=== PATIENT | male | born 1950 ===

== ENCOUNTER 2017-07-14 06:10 | Inpatient (IN) | payer MEDICARE ==
[2017-07-07 16:29] VITALS: BMI 29.3
[2017-07-14] MEDS ORDERED: ceFAZolin IV 1 gm in Dextrose 2 GM/100 ML BAG IVPB ONE (07:41)
[2017-07-14] MEDS ORDERED: Absorbable Gelatin Sponge Size 100 ONE (07:41)
[2017-07-14] MEDS ORDERED: Thrombin Topical 5,000 IU Spray Kit ONE (07:41)
[2017-07-14] MEDS ORDERED: Bacitracin Ointment 30 GM TUBE ONE (07:41)
[2017-07-14] MEDS ORDERED: Sodium Chloride 0.9% 20 ML IV ONE (07:55)
[2017-07-14] MEDS ORDERED: ePHEDrine 50 mg/ml Inj ONE (08:17)
[2017-07-14] MEDS ORDERED: Etomidate 20 mg/10ml Inj IV ONE (08:18)
[2017-07-14] MEDS ORDERED: Succinylcholine 200 mg/10 ml Inj IV ONE (08:18)
[2017-07-14] MEDS ORDERED: Rocuronium 10 mg/ml (5 ml) ONE ×2 (08:18→10:21)
[2017-07-14] MEDS ORDERED: Lactated Ringer's 1,000 ML IV ONE ×2 (08:55→10:15)
[2017-07-14] MEDS ORDERED: Midazolam 2 MG/2 ML VIAL ONE (08:57)
[2017-07-14] MEDS ORDERED: Desflurane Inhalation Anesthetic Liq (240 ml) ONE (09:04)
[2017-07-14] MEDS ORDERED: Vancomycin 1 g Inj ONE (10:20)
[2017-07-14 10:23] LABS: FLUID TYPE SYNOVIAL FLUID
[2017-07-14] MEDS: Bupivacaine HCl 0.5% PF (30 ml) Inj ONE ×2 (10:40→11:20)
[2017-07-14] MEDS: EPINEPHrine 1 mg/ml (1:1000) Inj ONE ×2 (10:42→11:20)
[2017-07-14] MEDS ORDERED: Neostigmine Methylsulfate 2 MG/2 ML ML IV ONE (10:42)
[2017-07-14] MEDS ORDERED: Neostigmine Methylsulfate 3mg/3ml Syringe IV ONE (10:42)
[2017-07-14] MEDS: Morphine 1 mg/ml preservative-free Inj(Duramorph) ONE ×2 (10:44→11:20)
[2017-07-14] MEDS ORDERED: Sodium Chloride 0.9% Inj (10mL) IV ONE ×2 (10:45→11:20)
[2017-07-14] MEDS ORDERED: Vancomycin 1 g Inj IVPB ONE (11:15)
[2017-07-14] MEDS: HYDROmorphone 0.5 mg/0.5 ml ISec IVP PRN ×2 (13:00→13:30)
--- NOTE | 2017-07-14 13:22 | PCM.SURG1 ---
Surgeon's Initial Post Op Note - Surgeon's Notes Surgeon: Dao Phoenix MD Gravity Prospector: Burton Estes PA-C Type of Anesthesia: General Endo Pre-Operative Diagnosis: Right knee sever OA Operative Findings: see op report Post-Operative Diagnosis: same as pre-op dx Operation Performed: R TKR Specimen/Specimens Removed: Right knee bone and soft tissue Estimated Blood Loss: EBL {In ML}: 250 Date of Surgery/Procedure: 07/14/17 Time of Surgery/Procedure: 09:45
[2017-07-14] MEDS ORDERED: Labetalol 5mg/ml (4ml) IVP ONE (13:30)
[2017-07-14] MEDS ORDERED: Oxycodone/Acetaminophen 5/325 mg Tab PO PRN (13:32)
--- NOTE | 2017-07-14 13:48 | RAD ---
PROCEDURE: Right Knee Radiographs. HISTORY: postop right tkr COMPARISON: None. FINDINGS: BONES: Expected postoperative findings with respect to femoral and tibial components of the TKA. JOINTS: Expected postoperative findings JOINT EFFUSION: None. OTHER FINDINGS: None. IMPRESSION: Satisfactory postoperative status.
--- NOTE | 2017-07-14 13:50 | CP.PCM.HP ---
<ConnerCassievincent - Last Filed: 07/14/17 16:32> History of Present Illness - History of Present Illness History of Present Illness: POD #0 66 year old male with PMH of HTN,HLD, OA of knee s/p total right knee replacement. Patient is somnolent but arousable, was given pain medication just prior to interviewing patient in PACU. Patients chart reviewed. He has HTN managed with coreg, and HLD managed with atorvastatin. He had cardiac cath 06/2017: mild perfusion defect. was cleared for procedure. PMH: HTN, HLD, OA of knee Surgeon: Dr. Phoenix MEdications: reviewed Allergies: Reviewed. Present on Admission - Present on Admission Any Indicators Present on Admission: No Past Patient History - Past Medical History & Family History Past Medical History?: Yes - Past Social History Smoking Status: Never Smoked - CARDIAC Hx Cardiac Disorders: Yes Hx Hypercholesterolemia: Yes Hx Hypertension: Yes - PULMONARY Hx Respiratory Disorders: No - NEUROLOGICAL Hx Neurological Disorder: No - HEENT Hx HEENT Problems: No - RENAL Hx Chronic Kidney Disease: No - ENDOCRINE/METABOLIC Hx Endocrine Disorders: No - HEMATOLOGICAL/ONCOLOGICAL Hx Blood Disorders: No Hx Blood Transfusions: No - INTEGUMENTARY Hx Dermatological Problems: No - MUSCULOSKELETAL/RHEUMATOLOGICAL Hx Musculoskeletal Disorders: Yes Hx Arthritis: Yes - GASTROINTESTINAL Hx Gastrointestinal Disorders: No - GENITOURINARY/GYNECOLOGICAL Hx Genitourinary Disorders: No - PSYCHIATRIC Hx Psychophysiologic Disorder: Yes Hx Depression: Yes - SURGICAL HISTORY Hx Surgeries: Yes Other/Comment: HERNIA SURGERY - ANESTHESIA Hx Anesthesia: Yes Hx Anesthesia Reactions: No Hx Malignant Hyperthermia: No Has any member of the family had a problem w/ anesthesia?: No Meds Allergies/Adverse Reactions: Allergies Allergy/AdvReac Type Severity Reaction Status Date / Time No Known Allergies Allergy Verified 07/07/17 16:29 Physical Exam - Constitutional Appears: No Acute Distress - Head Exam Head Exam: ATRAUMATIC, NORMAL INSPECTION, NORMOCEPHALIC - Eye Exam Eye Exam: EOMI, Normal appearance, PERRL - Respiratory Exam Respiratory Exam: Clear to Auscultation Bilateral, NORMAL BREATHING PATTERN - Cardiovascular Exam Cardiovascular Exam: Tachycardia (109), REGULAR RHYTHM, +S1, +S2 - GI/Abdominal Exam GI & Abdominal Exam: Normal Bowel Sounds, Soft. absent: Tenderness - Psychiatric Exam Psychiatric exam: Normal Affect, Normal Mood - Skin Skin Exam: Dry, Intact, Normal Color, Warm Results - Vital Signs Recent Vital Signs: Last Vital Signs Temp 97.9 F 07/14/17 13:15 Pulse 83 07/14/17 13:30 Resp 20 07/14/17 13:30 BP 158/96 H 07/14/17 13:30 Pulse Ox 95 07/14/17 13:30 - Labs Labs: Laboratory Results - last 24 hr 07/14/17 07/14/17 07/14/17 06:25 08:00 10:21 Fluid Type Synovial fluid Synovial WBC 15.0 Synovial RBC 5544.0 H Synovial Neutrophils 5.0 H Synovial Lymphocytes 18.0 H Synov Monos/Macrophage 7 H Synovial Fluid Comment Light red, bloody Blood Type O POSITIVE Blood Type Confirm O POSITIVE Antibody Screen Negative BBK History Checked No verified bt Assessment & Plan - Assessment and Plan (Free Text) Assessment: 66 year old male s/p total knee replacement #TKR #HTN #HLD #DVT ppx -pain control as ordered -resume home medications for htn/hld -start lovenox 07/15 -follow up labs in AM <Nathainel Sanford - Last Filed: 07/15/17 17:04> Results - Vital Signs Recent Vital Signs: Last Vital Signs Temp 99.5 F 07/15/17 16:00 Pulse 98 H 07/15/17 16:00 Resp 24 07/15/17 16:00 BP 109/57 L 07/15/17 16:00 Pulse Ox 99 07/15/17 16:00 - Labs Result Diagrams: 07/15/17 05:40 07/15/17 05:40 Labs: Laboratory Results - last 24 hr 07/15/17 07/15/17 07/15/17 05:40 05:40 08:57 WBC 12.5 H RBC 4.08 L Hgb 11.9 L Hct 35.9 MCV 87.9 MCH 29.2 MCHC 33.2 RDW 13.4 Plt Count 141 MPV 8.9 Neut % (Auto) 72.1 Lymph % (Auto) 11.8 L Rice % (Auto) 13.5 H Eos % (Auto) 2.2 Baso % (Auto) 0.4 Neut # 9.0 H Lymph # 1.5 Rice # 1.7 H Eos # 0.3 Baso # 0.1 D-Dimer, Quantitative pCO2 pO2 HCO3 ABG pH ABG Total CO2 ABG O2 Saturation ABG O2 Content ABG Base Excess ABG Hemoglobin ABG Carboxyhemoglobin POC ABG HHb (Measured) ABG Methemoglobin ABG O2 Capacity Hola Test A-a O2 Difference Hgb O2 Saturation FiO2 Sodium 141 Potassium 4.8 Chloride 110 H Carbon Dioxide 19 L Anion Gap 17 BUN 31 H Creatinine 2.0 H Est GFR ( Amer) 41 Est GFR (Non-Af Amer) 34 POC Glucose (mg/dL) 144 H Random Glucose 124 H Calcium 8.4 Troponin I NT-Pro-B Natriuret Pep Urine Color Urine Clarity Urine pH Ur Specific Barry Urine Protein Urine Glucose (UA) Urine Ketones Urine Blood Urine Nitrate Urine Bilirubin Urine Urobilinogen Ur Leukocyte Esterase Urine RBC (Auto) Urine Microscopic WBC Ur Squamous Epith Cells Amorphous Sediment Urine Bacteria Granular Casts (Auto) 07/15/17 07/15/17 07/15/17 09:22 10:25 11:25 WBC RBC Hgb Hct MCV MCH MCHC RDW Plt Count MPV Neut % (Auto) Lymph % (Auto) Rice % (Auto) Eos % (Auto) Baso % (Auto) Neut # Lymph # Rice # Eos # Baso # D-Dimer, Quantitative < 150 pCO2 37 pO2 49 L HCO3 20.1 L ABG pH 7.33 L ABG Total CO2 20.6 L ABG O2 Saturation 89.2 L ABG O2 Content 13.4 L ABG Base Excess -5.9 L ABG Hemoglobin 11.1 L ABG Carboxyhemoglobin 2.5 H POC ABG HHb (Measured) 10.4 H ABG Methemoglobin 1.2 ABG O2 Capacity 15.0 L Hola Test Yes A-a O2 Difference 104.0 Hgb O2 Saturation 85.9 L FiO2 28.0 Sodium Potassium Chloride Carbon Dioxide Anion Gap BUN Creatinine Est GFR ( Amer) Est GFR (Non-Af Amer) POC Glucose (mg/dL) Random Glucose Calcium Troponin I 0.1500 H* NT-Pro-B Natriuret Pep 5590 H Urine Color Urine Clarity Urine pH Ur Specific Barry Urine Protein Urine Glucose (UA) Urine Ketones Urine Blood Urine Nitrate Urine Bilirubin Urine Urobilinogen Ur Leukocyte Esterase Urine RBC (Auto) Urine Microscopic WBC Ur Squamous Epith Cells Amorphous Sediment Urine Bacteria Granular Casts (Auto) 07/15/17 16:06 WBC RBC Hgb Hct MCV MCH MCHC RDW Plt Count MPV Neut % (Auto) Lymph % (Auto) Rice % (Auto) Eos % (Auto) Baso % (Auto) Neut # Lymph # Rice # Eos # Baso # D-Dimer, Quantitative pCO2 pO2 HCO3 ABG pH ABG Total CO2 ABG O2 Saturation ABG O2 Content ABG Base Excess ABG Hemoglobin ABG Carboxyhemoglobin POC ABG HHb (Measured) ABG Methemoglobin ABG O2 Capacity Hola Test A-a O2 Difference Hgb O2 Saturation FiO2 Sodium Potassium Chloride Carbon Dioxide Anion Gap BUN Creatinine Est GFR ( Amer) Est GFR (Non-Af Amer) POC Glucose (mg/dL) Random Glucose Calcium Troponin I NT-Pro-B Natriuret Pep Urine Color Ladi Urine Clarity Cloudy Urine pH 5.0 Ur Specific Barry 1.026 Urine Protein 30 Urine Glucose (UA) Neg Urine Ketones 20 Urine Blood Negative Urine Nitrate Negative Urine Bilirubin Negative Urine Urobilinogen 0.2-1.0 Ur Leukocyte Esterase Neg Urine RBC (Auto) 3 Urine Microscopic WBC 2 Ur Squamous Epith Cells < 1 Amorphous Sediment Few H Urine Bacteria Rare Granular Casts (Auto) 1 Assessment & Plan - Assessment and Plan (Free Text) Plan: I was present during evaluation and discussed with Dr. Rubio re:plans of care and treatment.
[2017-07-14] MEDS ORDERED: Labetalol 5mg/ml (4ml) IV ONE (14:45)
--- NOTE | 2017-07-14 15:10 | CARD ---
APPROVED REPORT EKG Measurement Heart [id number] <Conclusion> Normal sinus rhythm Minimal voltage criteria for LVH, may be normal variant Nonspecific T wave abnormality Abnormal ECG
[2017-07-14] MEDS ORDERED: ceFAZolin IV 1 gm in Dextrose 1 GM/50 ML BAG IVPB ONE ×2 (16:45→23:45)
[2017-07-14] MEDS ORDERED: oxyCODONE 20 mg ER Tab (oxyCONTIN) PO SCH (21:00)
--- NOTE | 2017-07-14 21:18 | OP ---
PROCEDURE DATE: 07/14/2017 PREOPERATIVE DIAGNOSIS: Right knee osteoarthritis. POSTOPERATIVE DIAGNOSIS: Right knee osteoarthritis. PROCEDURE: Right total knee replacement. ATTENDING SURGEON: Dao Phoenix MD. SCENARIO WRITER: Burton Estes PA-C IMPLANTS SIZE: Tibia size 3 tibia, size 3 femur, 9 mm polyethylene insert, 32 mm patella button. ANESTHESIA TYPE: General. ESTIMATED BLOOD LOSS: 50 mL. COMPLICATIONS: None. HISTORY: The patient with prolonged history of right knee pain progressively getting worse despite extensive conservative management, which included activity modification, injections, anti-inflammatory modification and physical therapy. X-rays had revealed advanced arthritis. Patient was indicated for total knee replacement due to continued pain and limited mobility. I had a detailed discussion with the patient in the office explaining the nature of the surgery, alternatives of surgery, risks and benefits, rehabilitation protocol and surgical markings. Risks of surgery include but not limited to continued pain, lack of motion, infection, vascular injury, DVT / PE, nerve injury including peroneal nerve dysfunction, reflex sympathetic dystrophy, compartment syndrome, unforeseen medical and/or anesthesia complications, limb loss, and even . The patient expressed an understanding of the risks and possible benefits of the procedure, and is also aware of the alternatives to surgery. DESCRIPTION OF PROCEDURE: On the day of the surgery, the patient was admitted to pre-operative holding area. A laterality sheet was completed confirming the correct operative site. The correct surgical knee was marked in the holding area and informed consent was signed from the patient. Once again, I reviewed the risks and benefits of the surgery with the patient in detail. These risks include but are not limited to continued pain, lack of motion, infection, vascular injury, DVT / PE, nerve injury including peroneal nerve dysfunction, reflex sympathetic dystrophy, symptomatic hardware, need for further procedure and surgeries, instability, iatrogenic fractures, compartment syndrome, unforeseen medical and/or anesthesia complications, limb loss, and even . The patient expressed an understanding of the risks and possible benefits of the procedure, also aware of the alternatives to surgery and signed the informed consent. The patient was transported to the operating room and placed in the supine position, general anesthesia was obtained. Exam under anesthesia revealed no effusion, range of motion was 0-125, stable to varus and valgus stress. A padded tourniquet was applied to patient's operative thigh and appropriate prophylactic antibiotics were given. The operative leg was draped and prepped in standard sterile manner. Timeout was completed, confirming patient's right knee to be the correct operative site. Using an Esmarch, the extremity was exsanguinated and tourniquet was inflated to 350 mmHg. The surgical incision markings were made using patella border, tibial tubercle, patella and quadriceps tendon. Using a 10 blade, a midline incision was made. Skin dissection was taken until the prepatellar fascia was identified and the corners of the patellar tendon were marked for proper closure at the end of the procedure. Using a fresh 10 blade, a medial parapatellar arthrotomy was performed. The knee was exposed in the standard manner. The deep MCL was elevated for exposure, medial and lateral menisci were removed, ACL and PCL were also transected. The tibia was subluxed anteriorly. Planned tibial cut was made with power saw, using extra-medullary guide, perpendicular to mechanical axis of the tibia. After the cut was made, the alignment was also checked and was found to be appropriate. Tibial cut surface was measured with trial base plate and it was noted that size 3 tibial baseplate was provide sufficient coverage without overhang. Tibial component was externally rotated and marked. Next, the knee was placed into 90 degrees of flexion. A drill hole was made within the femoral notch anterior to PCL insertion for placement of intramedullary femoral tonny. Intramedullary femoral tonny was inserted within the femoral canal and planned distal femoral cut was made. After the cut, knee was brought into full extension. Spacer blocks were used to check the extension balancing both in full extension and 30 degrees of flexion. It was found that 9 mm trial spacer block allowed full extension with symmetric varus and valgus balancing. Next we proceed with Patella resurfacing. [place] patella width was found to 27 mm. Using the free-hand technique the arthritic patella surface was resected. Patella was sized using the guide and it was noted that 32 mm. Patella dome button would be appropriate for the patient. Next the size of femoral component was determined using the posterior referencing guide. It was noted that a size 3 femur would be appropriate for this patient without causing any significant notching. A 4 x 1 cutting block was placed and flexion gap balancing was checked. The flexion gap was found to be symmetric to the extension gap. Anterior and posterior condyle, anterior and posterior chamfer cuts were made. Next, appropriate size box cut for femoral component was prepared using the guide. The femoral trial component was impacted onto the distal femur. Appropriate size tibial trial component was also placed on the cut surface of the tibia. Using the drill and punch, keel for tibial implant was prepared. Trial tibial tray was secured onto the tibia using pins. Different size trial polyethylene inserts were secured on to the trial tibial tray to critically assess the following parameters: Full range of motion, extension and flexion gap balancing, mid-flexion stability, anterior and posterior drawer, and patellar tracking. All parameter were found to be satisfactory with 9 mm insert. All the trial components were removed. Implants were opened on the back table. Cement was mixed and we proceed with cement fixation of the implants. Tibial tray, femoral component and patellar dome button were secured with cement. Polyethylene insert was secured onto the tibial tray using locking mechanism. The knee was reduced and brought into full extension. Cement was allowed to harden until final component fixation. Knee was taken through the final range of motion for stability testing, and found to be satisfactory. 60 mL of custom cocktail mixture was injected into posterior capsule, MCL, LCL, quadriceps tendon, and patellar tendon. Wound was copiously irrigated with sterile antibiotic solution using pulse lavage. Arthrotomy was closed using heavy suture and wound was closed in standard manner. Patient was extubated, transferred to stretcher and taken to the recovery room. Post-operative instructions were provided, physical therapy consult was requested along with DVT prophylaxis and appropriate pain medications. During this procedure, I was assisted by Burton Estes PA-C, who assisted in positioning the patient on the operating room table as well as transferring the patient from the operating room table to the recovery room stretcher. In addition, Burton Estes PA-C assisted me during the actual operative procedure by positioning, protecting critical neurovascular structures, exposure of the joint, and proper positioning of the implants. The presence of Burton Estes PA-C as my operative administrative assistant receptionist was medically necessary to ensure the utmost safety of the patient in the pre, intra-, and post-operative periods. Due to the patient's previous procedure performed in this area, this procedure was more difficult than a standard knee arthroscopy. This required extra time during prepping and draping, as well as an extended operative time. Because of the added complexity of the revision nature of this procedure, the length of the case was prolonged by 50 minutes. Previous surgery was quadriceps tendon repair. Dao Phoenix MD FISH
[2017-07-15] MEDS ORDERED: Chlorhexidine Gluconate 1 APPL/PKT TP ONE ×3 (02:43→21:22)
[2017-07-15 06:32] LABS: BASO # 0.1 K/uL (0.0-0.2); BASO % 0.4 % (0.0-2.0); EOS # 0.3 K/uL (0.0-0.7); EOS % 2.2 % (0.0-4.0); HEMATOCRIT 35.9 % (35.0-51.0); LYMPH # 1.5 K/uL (1.0-4.3); LYMPH % 11.8 % (20.0-40.0); MEAN CELL VOLUME 87.9 fl (80.0-94.0); MEAN CORPUSCULAR HEMOGLOBIN 29.2 pg (27.0-31.0); MEAN CORPUSCULAR HGB CONC 33.2 g/dL (33.0-37.0); MEAN PLATELET VOLUME 8.9 fl (7.2-11.7); MONO # 1.7 K/uL (0.0-0.8); MONO % 13.5 % (0.0-10.0); NEUT % 72.1 % (50.0-75.0); NRBC % 0.1 % (0.0-0.0); RED CELL DISTRIBUTION WIDTH 13.4 % (11.5-14.5); WHITE BLOOD COUNT 12.5 K/uL (4.8-10.8)
[2017-07-15 06:46] LABS: CALCIUM 8.4 mg/dL (8.4-10.2); POTASSIUM 4.8 MMOL/L (3.6-5.0)
[2017-07-15] MEDS ORDERED: Lactated Ringer's 1,000 ML IV SCH (08:30)
--- NOTE | 2017-07-15 09:15 | PCM.RRT ---
I.Reason for DIRECTOR EXPORT - A) Acute Change in Patient: (Select all that apply): Acute change in SBP below (90) - Neurological Status (Select all that apply): Verbal, Confused, Lethargic - Respiratory Oxygen Delivery Method: Nasal Cannula @L/min (2) - Constitutional Appears: Confused - Head Head Exam: NORMAL INSPECTION, NORMOCEPHALIC - Eyes Eye Exam: Normal appearance, PERRL - Respiratory Exam Respiratory Exam: Clear to Ausculation Bilateral, NORMAL BREATHING PATTERN - Cardiovascular Exam Cardiovascular Exam: REGULAR RHYTHM, +S1, +S2 - GI/Abdominal Exam GI & Abdominal Exam: Soft. absent: Distended, Tenderness - Neurological Exam Additional exam: somnolent but arousable - Extremities Exam Extremities Exam: absent: Pedal Edema Additional comments: yordy wrap on right leg Plan - Assessment of Findings&Treatment Plan DIRECTOR EXPORT called for hypotension and AMS 66 year old male s/p total knee replacement, patient with decreased urine output postoperatively, LIYAH, urinary retention, called by nurse for drop in systolic BP. Bolus was ordered prior to DIRECTOR EXPORT, patient received 300cc, patients BP was checked and found to be 80s/50s Patient lying in bed, appears more lethargic, responding to questions, opens eye to verbal stimuli and to touch. Denies dizziness, chest pain , shortness of breath, nausea or abdominal pain. VS: BP 80s/50s, HR 90s, O2 sat dropped to high 80s on room air Gen: lethargic, responds to questions lungs: clear to auscultations bilaterally cardio: distant heart sounds abdomen: distended, tympanic to percussion ext: no pedal edema/tenderness A/P: 66 year old male s/p R TKR with acute decompensation. Became hypoxic, hypotensive and tachycardic, possibly 2' to PE/AK. Patient to be transferred to ICU. Nasal cannula placed with some improvement of O2 sat. STAT ABG ordered. STAT 1L Bolus of NS. Case was d/w intensvist
[2017-07-15 09:25] LABS: ABG ALLEN TEST YES; ARTERIAL BLOOD GAS HCO3 20.1 mmol/L (21-28); ARTERIAL BLOOD GAS O2 CONTENT 13.4 ML/dL (15-23); ARTERIAL BLOOD GAS PH 7.33 (7.35-7.45); ARTERIAL BLOOD GAS PO2 49 mm/Hg (80-100); ARTERIAL BLOOD HGB O2 SAT 85.9 % (95.0-98.0); CARBOXYHEMOGLOBIN 2.5 % (0.5-1.5); HHB 10.4 % (0.0-5.0); METHEMOGLOBIN 1.2 % (0.0-3.0)
[2017-07-15] MEDS: Dextrose 5%/Lactated Ringer's 1,000 ML IV SCH ×2 (10:10→18:10)
[2017-07-15 11:19] LABS: TROPONIN I 0.15 ng/mL (0.00-0.120)
--- NOTE | 2017-07-15 11:30 | CP.CCUPN ---
CCU Subjective - Physician Review Subjective (Free Text): Transfer to ICU post DESIGN CONSULTANT eval: 66M with PMH: HTN, hyperlipidemia, underwent R TKR via GA yesterday as per operative report: DESIGN CONSULTANT called this AM for hypotension, BP unresponsive to fluid challenge and transferred to ICU for further mgmt. Presently lethargic, but arousable and follows simple commands, does not appear distressed, but grimaces upon abdominal exam. Abdomen markedly protuberant and distended, grimaces on deep palpation. After 1 liter fluid challenge, HR 95. BP 104/57, SPO2 90% on 2 LPM NC. Reportedly had urinary retention overnight and difficulty encountered with Vargas placement. No other meds given within the past 12 hours including any further antihypertensives or pain meds. Allergies: NKDA Home Meds: Lipitor, Coreg, Zestril. Other vitals and I/O's reviewed. Fever spike to 100.1F noted overnight. ROS: Unobtainable from lethargic Patient. No other pertinent negs or positives on 10+ system review. PMSFH: All Nursing and physician documentation reviewed to date; no new pertinent info noted relevant to current medical problems. CXR / AXR: hypoexpanded, but clear lung escobar. Distended stomach, non-specific bowel gas pattern. (my interp). EKG: repeat done today as compared to yesterdays study shows no new changes. MAJOR PROBLEMS: 1. Hypotension; r/o occult AMI, PTE, Hypovolemia, medication effect. 2. Acute Resp Insufficiency 2 Gastric Distention, r/o PTE 3. Gastric Distension 4. Urinary Retention 5. Azotemia, r/o LIYAH vs CKD PLAN: 1. Additional Fluid challenge, does not appear fluid overloaded. D5LR fluids ordered, watch K levels. 2. Increase supplemental oxygen. 3. CTA chest if allowed by Radiology. Unclear if suspicion for acute PTE high enough now to start anticoagulation. V/Q may be problematic given body size with poor imaging in obtaining a good study. 4. Venous Dopplers of legs 5. NGT decompression. 6. Check repeat Bladder scan, consider Vargas catheter drainage. 7. Hold Antihypertensives and pain meds for now. 8. Consider CT Brain if no improvement in neuromental status. 9. Watch temps, has only been on Ancef. Would panculture and consider emetic abx coverage. CCU Objective - Vital Signs / Intake & Output Vital Signs (Last 4 hours): Vital Signs Temp Pulse Resp BP Pulse Ox 07/15/17 09:40 100.1 F H 94 H 18 104/57 L 96 07/15/17 07:45 99.4 F 96 H 20 93/57 L 95 - Physical Exam Physical Exam Limitations: Positive for: Altered Mental Status Head: Positive for: Normocephalic Pupils: Positive for: PERRL Extroacular Muscles: Positive for: EOMI. Negative for: Gaze Palsy Conjunctiva: Positive for: Normal. Negative for: Icteric Mouth: Positive for: Moist Mucous Membranes Neck: Negative for: JVD Respiratory/Chest: Positive for: Decreased Breath Sounds. Negative for: Accessory Muscle Use, Wheezes Cardiovascular: Positive for: Regular Rate and Rhythm. Negative for: Murmurs, Rub Abdomen: Positive for: Tenderness. Negative for: Distention, Mass/Organomegaly Lower Extremity: Positive for: Edema (LLE) Skin: Positive for: Warm, Dry. Negative for: Rashes Psychiatric: Positive for: Lethargic - Medications Active Medications: Active Medications Generic Name Dose Route Start Last Admin Trade Name Freq PRN Reason Stop Dose Admin Acetaminophen 325 mg 07/14/17 13:32 Tylenol 325mg Tab PO Q4 PRN pain1-3 Atorvastatin Calcium 40 mg 07/15/17 09:00 Lipitor PO DAILY [facility] Carvedilol 25 mg 07/14/17 17:00 07/14/17 16:59 Coreg PO 25 mg BID [facility] Administration Celecoxib 100 mg 07/14/17 21:00 07/14/17 20:56 Celebrex PO 100 mg Q12 [facility] Administration Enoxaparin Sodium 40 mg 07/15/17 09:00 Lovenox SC DAILY [facility] Protocol Dextrose/Lactated Ringer's 1,000 mls @ 125 mls/hr 07/15/17 10:15 Dextrose 5%/Lactated Ringer's IV 07/16/17 10:10 .Q8H [facility] Ketorolac Tromethamine 15 mg 07/15/17 08:28 Toradol IVP Q8 [facility] Lisinopril 40 mg 07/15/17 09:00 Zestril PO DAILY [facility] Oxycodone HCl 20 mg 07/14/17 21:00 07/14/17 20:56 Oxycontin Extended Release Tab PO 07/28/17 23:59 20 mg Q12 [place] Administration Oxycodone/Acetaminophen 1 tab 07/14/17 13:32 Percocet 5/325 Mg Tab PO 07/17/17 13:33 Q4 PRN pain4-6 Tamsulosin HCl 0.4 mg 07/15/17 09:00 Flomax PO DAILY [place] - Patient Studies Lab Studies: Microbiology Studies 07/14/17 12:32 Gram Stain - Final Knee - Right 07/14/17 10:21 Gram Stain - Final Synovial Fluid Lab Studies 07/15/17 07/15/17 07/15/17 Range/Units 10:25 09:22 08:57 WBC (4.8-10.8) K/uL RBC (4.40-5.90) Mil/uL Hgb (12.0-18.0) g/dL Hct (35.0-51.0) % MCV (80.0-94.0) fl MCH (27.0-31.0) pg MCHC (33.0-37.0) g/dL RDW (11.5-14.5) % Plt Count (130-400) K/uL MPV (7.2-11.7) fl Neut % (Auto) (50.0-75.0) % Lymph % (Auto) (20.0-40.0) % [place] % (Auto) (0.0-10.0) % Eos % (Auto) (0.0-4.0) % Baso % (Auto) (0.0-2.0) % Neut # (1.8-7.0) K/uL Lymph # (1.0-4.3) K/uL [place] # (0.0-0.8) K/uL Eos # (0.0-0.7) K/uL Baso # (0.0-0.2) K/uL pCO2 37 (35-45) mm/Hg pO2 49 L (80-100) mm/Hg HCO3 20.1 L (21-28) mmol/L ABG pH 7.33 L (7.35-7.45) ABG Total CO2 20.6 L (22-28) mmol/L ABG O2 Saturation 89.2 L (95-98) % ABG O2 Content 13.4 L (15-23) ML/dL ABG Base Excess -5.9 L (-2.0-3.0) mmol/L ABG Hemoglobin 11.1 L (11.7-17.4) g/dL ABG Carboxyhemoglobin 2.5 H (0.5-1.5) % POC ABG HHb (Measured) 10.4 H (0.0-5.0) % ABG Methemoglobin 1.2 (0.0-3.0) % ABG O2 Capacity 15.0 L (16-24) mL/dL Hola Test Yes A-a O2 Difference 104.0 mm/Hg Hgb O2 Saturation 85.9 L (95.0-98.0) % FiO2 28.0 % Sodium (132-148) mmol/l Potassium (3.6-5.0) MMOL/L Chloride (98-107) mmol/L Carbon Dioxide (22-30) mmol/L Anion Gap (10-20) BUN (9-20) mg/dl Creatinine (0.8-1.5) mg/dL Est GFR ( Amer) Est GFR (Non-Af Amer) POC Glucose (mg/dL) 144 H (65-110) mg/dL Random Glucose (75-110) mg/dL Calcium (8.4-10.2) mg/dL Troponin I 0.1500 H* (0.00-0.120) ng/mL NT-Pro-B Natriuret Pep 5590 H (0-900) pg/ml 07/15/17 07/15/17 Range/Units 05:40 05:40 WBC 12.5 H (4.8-10.8) K/uL RBC 4.08 L (4.40-5.90) Mil/uL Hgb 11.9 L (12.0-18.0) g/dL Hct 35.9 (35.0-51.0) % MCV 87.9 (80.0-94.0) fl MCH 29.2 (27.0-31.0) pg MCHC 33.2 (33.0-37.0) g/dL RDW 13.4 (11.5-14.5) % Plt Count 141 (130-400) K/uL MPV 8.9 (7.2-11.7) fl Neut % (Auto) 72.1 (50.0-75.0) % Lymph % (Auto) 11.8 L (20.0-40.0) % [place] % (Auto) 13.5 H (0.0-10.0) % Eos % (Auto) 2.2 (0.0-4.0) % Baso % (Auto) 0.4 (0.0-2.0) % Neut # 9.0 H (1.8-7.0) K/uL Lymph # 1.5 (1.0-4.3) K/uL [place] # 1.7 H (0.0-0.8) K/uL Eos # 0.3 (0.0-0.7) K/uL Baso # 0.1 (0.0-0.2) K/uL pCO2 (35-45) mm/Hg pO2 (80-100) mm/Hg HCO3 (21-28) mmol/L ABG pH (7.35-7.45) ABG Total CO2 (22-28) mmol/L ABG O2 Saturation (95-98) % ABG O2 Content (15-23) ML/dL ABG Base Excess (-2.0-3.0) mmol/L ABG Hemoglobin (11.7-17.4) g/dL ABG Carboxyhemoglobin (0.5-1.5) % POC ABG HHb (Measured) (0.0-5.0) % ABG Methemoglobin (0.0-3.0) % ABG O2 Capacity (16-24) mL/dL Hola Test A-a O2 Difference mm/Hg Hgb O2 Saturation (95.0-98.0) % FiO2 % Sodium 141 (132-148) mmol/l Potassium 4.8 (3.6-5.0) MMOL/L Chloride 110 H (98-107) mmol/L Carbon Dioxide 19 L (22-30) mmol/L Anion Gap 17 (10-20) BUN 31 H (9-20) mg/dl Creatinine 2.0 H (0.8-1.5) mg/dL Est GFR ( Amer) 41 Est GFR (Non-Af Amer) 34 POC Glucose (mg/dL) (65-110) mg/dL Random Glucose 124 H (75-110) mg/dL Calcium 8.4 (8.4-10.2) mg/dL Troponin I (0.00-0.120) ng/mL NT-Pro-B Natriuret Pep (0-900) pg/ml Laboratory Results - last 24 hr 07/15/17 07/15/17 07/15/17 05:40 05:40 08:57 WBC 12.5 H RBC 4.08 L Hgb 11.9 L Hct 35.9 MCV 87.9 MCH 29.2 MCHC 33.2 RDW 13.4 Plt Count 141 MPV 8.9 Neut % (Auto) 72.1 Lymph % (Auto) 11.8 L [place] % (Auto) 13.5 H Eos % (Auto) 2.2 Baso % (Auto) 0.4 Neut # 9.0 H Lymph # 1.5 [place] # 1.7 H Eos # 0.3 Baso # 0.1 pCO2 pO2 HCO3 ABG pH ABG Total CO2 ABG O2 Saturation ABG O2 Content ABG Base Excess ABG Hemoglobin ABG Carboxyhemoglobin POC ABG HHb (Measured) ABG Methemoglobin ABG O2 Capacity Hola Test A-a O2 Difference Hgb O2 Saturation FiO2 Sodium 141 Potassium 4.8 Chloride 110 H Carbon Dioxide 19 L Anion Gap 17 BUN 31 H Creatinine 2.0 H Est GFR ( Amer) 41 Est GFR (Non-Af Amer) 34 POC Glucose (mg/dL) 144 H Random Glucose 124 H Calcium 8.4 Troponin I NT-Pro-B Natriuret Pep 07/15/17 07/15/17 09:22 10:25 WBC RBC Hgb Hct MCV MCH MCHC RDW Plt Count MPV Neut % (Auto) Lymph % (Auto) [place] % (Auto) Eos % (Auto) Baso % (Auto) Neut # Lymph # [place] # Eos # Baso # pCO2 37 pO2 49 L HCO3 20.1 L ABG pH 7.33 L ABG Total CO2 20.6 L ABG O2 Saturation 89.2 L ABG O2 Content 13.4 L ABG Base Excess -5.9 L ABG Hemoglobin 11.1 L ABG Carboxyhemoglobin 2.5 H POC ABG HHb (Measured) 10.4 H ABG Methemoglobin 1.2 ABG O2 Capacity 15.0 L Hola Test Yes A-a O2 Difference 104.0 Hgb O2 Saturation 85.9 L FiO2 28.0 Sodium Potassium Chloride Carbon Dioxide Anion Gap BUN Creatinine Est GFR ( Amer) Est GFR (Non-Af Amer) POC Glucose (mg/dL) Random Glucose Calcium Troponin I 0.1500 H* NT-Pro-B Natriuret Pep 5590 H Radiology Interpretations (Free Text): See Above EKG/Cardiology Interpretations (Free Text): See Above Review of Systems - Review of Systems Systems not reviewed;Unavailable: Altered Mental Status Critical Care Progress Note - Nutrition Nutrition: Nutrition Category Date Time Status Regular Diet [DIET] Diets 07/14/17 Dinner Active
--- NOTE | 2017-07-15 11:41 | CP.PCM.CON ---
<Ike Llanos - Last Filed: 07/15/17 12:19> History of Present Illness - History of Present Illness History of Present Illness: Pulmonology Consult Note: 66 y/o male s/p Knee Replacement post operative day 1. RESIDENT ADVISOR called this morning because of low BP 93/57 with O2 sat 85-95. Patient seen and evaluated at the bedside this morning. Has had poor urine output since yesterday. Denies SOB, chest pain. Review of Systems - Constitutional Constitutional: absent: Chills - Cardiovascular Cardiovascular: absent: Chest Pain, Palpitations - Respiratory Respiratory: absent: Cough, Dyspnea - Gastrointestinal Gastrointestinal: absent: Abdominal Pain, Diarrhea - Genitourinary Genitourinary: Difficulty Urinating. absent: Dysuria - Musculoskeletal Musculoskeletal: absent: Arthralgias Additional comments: Denies knee pain Past Patient History - Past Medical History & Family History Past Medical History?: Yes - Past Social History Smoking Status: Never Smoked - CARDIAC Hx Cardiac Disorders: Yes Hx Hypercholesterolemia: Yes Hx Hypertension: Yes Other/Comment: HTN, HLD - PULMONARY Hx Respiratory Disorders: No Hx Asthma: No Hx Chronic Obstructive Pulmonary Disease (COPD): No - NEUROLOGICAL Hx Neurological Disorder: No - HEENT Hx HEENT Problems: No - RENAL Hx Chronic Kidney Disease: No - ENDOCRINE/METABOLIC Hx Endocrine Disorders: No - HEMATOLOGICAL/ONCOLOGICAL Hx Blood Disorders: No Hx Blood Transfusions: No - INTEGUMENTARY Hx Dermatological Problems: No - MUSCULOSKELETAL/RHEUMATOLOGICAL Hx Musculoskeletal Disorders: Yes Hx Arthritis: Yes - GASTROINTESTINAL Hx Gastrointestinal Disorders: No - GENITOURINARY/GYNECOLOGICAL Hx Genitourinary Disorders: No - PSYCHIATRIC Hx Psychophysiologic Disorder: Yes Hx Depression: Yes - SURGICAL HISTORY Hx Surgeries: Yes Other/Comment: HERNIA SURGERY - ANESTHESIA Hx Anesthesia: Yes Hx Anesthesia Reactions: No Hx Malignant Hyperthermia: No Has any member of the family had a problem w/ anesthesia?: No Meds Allergies/Adverse Reactions: Allergies Allergy/AdvReac Type Severity Reaction Status Date / Time No Known Allergies Allergy Verified 07/07/17 16:29 - Medications Medications: Current Medications Acetaminophen (Tylenol 325mg Tab) 325 mg PO Q4 PRN PRN Reason: pain1-3 Atorvastatin Calcium (Lipitor) 40 mg PO DAILY [facility] Carvedilol (Coreg) 25 mg PO BID [facility] Last Admin: 07/14/17 16:59 Dose: 25 mg Celecoxib (Celebrex) 100 mg PO Q12 [facility] Last Admin: 07/14/17 20:56 Dose: 100 mg Enoxaparin Sodium (Lovenox) 40 mg SC DAILY [facility] PRN Reason: Protocol Dextrose/Lactated Ringer's (Dextrose 5%/Lactated Ringer's) 1,000 mls @ 125 mls/ hr IV .Q8H [facility] Stop: 07/16/17 10:10 Ketorolac Tromethamine (Toradol) 15 mg IVP Q8 [facility] Lisinopril (Zestril) 40 mg PO DAILY [facility] Oxycodone HCl (Oxycontin Extended Release Tab) 20 mg PO Q12 [facility] Stop: 07/28/17 23:59 Last Admin: 07/14/17 20:56 Dose: 20 mg Oxycodone/Acetaminophen (Percocet 5/325 Mg Tab) 1 tab PO Q4 PRN PRN Reason: pain4-6 Stop: 07/17/17 13:33 Tamsulosin HCl (Flomax) 0.4 mg PO DAILY [facility] Physical Exam - Constitutional Appears: Toxic, No Acute Distress - Head Exam Head Exam: ATRAUMATIC - ENT Exam ENT Exam: Mucous Membranes Moist - Neck Exam Additional comments: No JVD - Respiratory Exam Respiratory Exam: Clear to Auscultation Bilateral. absent: Accessory Muscle Use , Chest Wall Tenderness, Decreased Breath Sounds, Rales, Wheezes Additional comments: No dullness or hyperresonance on percussion, trachea midline, good inspiratory effort. On non-breather 12L. - Cardiovascular Exam Cardiovascular Exam: REGULAR RHYTHM - GI/Abdominal Exam GI & Abdominal Exam: Distended, Firm, Hypoactive Bowel Sounds. absent: Organomegaly, Soft, Tenderness - Exam Exam: NORMAL INSPECTION, Bladder Distension External exam: Ecchymosis, NORMAL EXTERNAL EXAM - Extremities Exam Extremities exam: Positive for: pedal pulses present - Expanded Lower Extremities Exam Right Knee exam: swelling (Surgical knee bandaged) Results - Vital Signs Recent Vital Signs: Last Vital Signs Temp 100.1 F H 07/15/17 09:40 Pulse 94 H 07/15/17 09:40 Resp 18 07/15/17 09:40 BP 104/57 L 07/15/17 09:40 Pulse Ox 96 07/15/17 09:40 - Labs Result Diagrams: 07/15/17 05:40 07/15/17 05:40 Labs: Laboratory Results - last 24 hr 07/15/17 07/15/17 07/15/17 05:40 05:40 08:57 WBC 12.5 H RBC 4.08 L Hgb 11.9 L Hct 35.9 MCV 87.9 MCH 29.2 MCHC 33.2 RDW 13.4 Plt Count 141 MPV 8.9 Neut % (Auto) 72.1 Lymph % (Auto) 11.8 L [place] % (Auto) 13.5 H Eos % (Auto) 2.2 Baso % (Auto) 0.4 Neut # 9.0 H Lymph # 1.5 [place] # 1.7 H Eos # 0.3 Baso # 0.1 pCO2 pO2 HCO3 ABG pH ABG Total CO2 ABG O2 Saturation ABG O2 Content ABG Base Excess ABG Hemoglobin ABG Carboxyhemoglobin POC ABG HHb (Measured) ABG Methemoglobin ABG O2 Capacity Hola Test A-a O2 Difference Hgb O2 Saturation FiO2 Sodium 141 Potassium 4.8 Chloride 110 H Carbon Dioxide 19 L Anion Gap 17 BUN 31 H Creatinine 2.0 H Est GFR ( Amer) 41 Est GFR (Non-Af Amer) 34 POC Glucose (mg/dL) 144 H Random Glucose 124 H Calcium 8.4 Troponin I NT-Pro-B Natriuret Pep 07/15/17 07/15/17 09:22 10:25 WBC RBC Hgb Hct MCV MCH MCHC RDW Plt Count MPV Neut % (Auto) Lymph % (Auto) [place] % (Auto) Eos % (Auto) Baso % (Auto) Neut # Lymph # [place] # Eos # Baso # pCO2 37 pO2 49 L HCO3 20.1 L ABG pH 7.33 L ABG Total CO2 20.6 L ABG O2 Saturation 89.2 L ABG O2 Content 13.4 L ABG Base Excess -5.9 L ABG Hemoglobin 11.1 L ABG Carboxyhemoglobin 2.5 H POC ABG HHb (Measured) 10.4 H ABG Methemoglobin 1.2 ABG O2 Capacity 15.0 L Hola Test Yes A-a O2 Difference 104.0 Hgb O2 Saturation 85.9 L FiO2 28.0 Sodium Potassium Chloride Carbon Dioxide Anion Gap BUN Creatinine Est GFR ( Amer) Est GFR (Non-Af Amer) POC Glucose (mg/dL) Random Glucose Calcium Troponin I 0.1500 H* NT-Pro-B Natriuret Pep 5590 H Assessment & Plan - Assessment and Plan (Free Text) Assessment: 66 y/o male with PMHx of HTN, HLD, OA of right knee s/p knee replacement Post Op day 1 with episode of hypotension. #Hypotension -Need to r/o PE given pt's recent procedure and immobility. Less likely ACS as EKG did not show ischemic changes and troponin was negative x1. 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 -Cxray see report -C/w non-rebreather 02 and monitoring O2 sats; may transition to nasal cannula -Consider holding Lisinopril -F/U ProBNP -F/U V/Q Scan #Abdominal Distension -Likely secondary to post op Ileus -See abdomianal Xray report -NG tube decompression #LIYAH -Crea 2 today. Pt does not have a known hx of CKD. Possibly secondary to post obstructive urine -Vargas inserted -Avoid all nephrotoxic meds -continue to watch crea -Monitor I/O's #Low Grade Fever -Patient has WBC 12.5 and episodes of low grade fevers overnight -Sepsis wrkp recommended- BCx, UCx, Lactate and empiric ABx coverage <Dontrell Levin - Last Filed: 07/16/17 07:57> Meds - Medications Medications: Current Medications Acetaminophen (Tylenol 325mg Tab) 325 mg PO Q4 PRN PRN Reason: pain1-3 Acetaminophen (Tylenol 650 Mg Supp) 650 mg [place] Q6 PRN PRN Reason: fever > 100.4 Last Admin: 07/15/17 21:25 Dose: 650 mg Atorvastatin Calcium (Lipitor) 40 mg PO DAILY [facility] Last Admin: 07/15/17 15:44 Dose: Not Given Carvedilol (Coreg) 25 mg PO BID [facility] Last Admin: 07/14/17 16:59 Dose: 25 mg Celecoxib (Celebrex) 100 mg PO Q12 [facility] Last Admin: 07/15/17 21:30 Dose: Not Given Enoxaparin Sodium (Lovenox) 40 mg SC DAILY [facility] PRN Reason: Protocol Last Admin: 07/15/17 15:45 Dose: 40 mg Dextrose/Lactated Ringer's (Dextrose 5%/Lactated Ringer's) 1,000 mls @ 125 mls/ hr IV .Q8H [facility] Stop: 07/16/17 10:10 Last Admin: 07/16/17 02:10 Dose: 125 mls/hr Ketorolac Tromethamine (Toradol) 15 mg IVP Q8 [facility] Lisinopril (Zestril) 40 mg PO DAILY [facility] Oxycodone HCl (Oxycontin Extended Release Tab) 20 mg PO Q12 [facility] Stop: 07/28/17 23:59 Last Admin: 07/14/17 20:56 Dose: 20 mg Oxycodone/Acetaminophen (Percocet 5/325 Mg Tab) 1 tab PO Q4 PRN PRN Reason: pain4-6 Stop: 07/17/17 13:33 Tamsulosin HCl (Flomax) 0.4 mg PO DAILY [facility] Results - Vital Signs Recent Vital Signs: Last Vital Signs Temp 100.1 F H 07/16/17 04:00 Pulse 98 H 07/16/17 06:00 Resp 20 07/16/17 06:00 BP 133/75 07/16/17 06:00 Pulse Ox 100 07/16/17 06:00 - Labs Result Diagrams: 07/16/17 05:15 07/16/17 05:15 Labs: Laboratory Results - last 24 hr 07/15/17 07/15/17 07/15/17 08:57 09:22 10:25 WBC RBC Hgb Hct MCV MCH MCHC RDW Plt Count MPV Neut % (Auto) Lymph % (Auto) [place] % (Auto) Eos % (Auto) Baso % (Auto) Neut # Lymph # [place] # Eos # Baso # Neutrophils % (Manual) Band Neutrophils % Lymphocytes % (Manual) Monocytes % (Manual) Eosinophils % (Manual) Basophils % (Manual) Smudge Cells Platelet Estimate D-Dimer, Quantitative pCO2 37 pO2 49 L HCO3 20.1 L ABG pH 7.33 L ABG Total CO2 20.6 L ABG O2 Saturation 89.2 L ABG O2 Content 13.4 L ABG Base Excess -5.9 L ABG Hemoglobin 11.1 L ABG Carboxyhemoglobin 2.5 H POC ABG HHb (Measured) 10.4 H ABG Methemoglobin 1.2 ABG O2 Capacity 15.0 L Hola Test Yes A-a O2 Difference 104.0 Hgb O2 Saturation 85.9 L FiO2 28.0 Sodium Potassium Chloride Carbon Dioxide Anion Gap BUN Creatinine Est GFR ( Amer) Est GFR (Non-Af Amer) POC Glucose (mg/dL) 144 H Random Glucose Calcium Total Bilirubin AST ALT Alkaline Phosphatase Troponin I 0.1500 H* NT-Pro-B Natriuret Pep 5590 H Total Protein Albumin Globulin Albumin/Globulin Ratio Urine Color Urine Clarity Urine pH Ur Specific [place] Urine Protein Urine Glucose (UA) Urine Ketones Urine Blood Urine Nitrate Urine Bilirubin Urine Urobilinogen Ur Leukocyte Esterase Urine RBC (Auto) Urine Microscopic WBC Ur Squamous Epith Cells Amorphous Sediment Urine Bacteria Granular Casts (Auto) 07/15/17 07/15/17 07/15/17 11:25 16:06 18:20 WBC RBC Hgb Hct MCV MCH MCHC RDW Plt Count MPV Neut % (Auto) Lymph % (Auto) [place] % (Auto) Eos % (Auto) Baso % (Auto) Neut # Lymph # [place] # Eos # Baso # Neutrophils % (Manual) Band Neutrophils % Lymphocytes % (Manual) Monocytes % (Manual) Eosinophils % (Manual) Basophils % (Manual) Smudge Cells Platelet Estimate D-Dimer, Quantitative < 150 pCO2 pO2 HCO3 ABG pH ABG Total CO2 ABG O2 Saturation ABG O2 Content ABG Base Excess ABG Hemoglobin ABG Carboxyhemoglobin POC ABG HHb (Measured) ABG Methemoglobin ABG O2 Capacity Hola Test A-a O2 Difference Hgb O2 Saturation FiO2 Sodium 140 Potassium 4.2 Chloride 110 H Carbon Dioxide 21 L Anion Gap 13 BUN 38 H Creatinine 2.5 H Est GFR ( Amer) 32 Est GFR (Non-Af Amer) 26 POC Glucose (mg/dL) Random Glucose 167 H Calcium 7.7 L Total Bilirubin 0.8 AST 38 ALT 36 Alkaline Phosphatase 69 Troponin I NT-Pro-B Natriuret Pep Total Protein 5.4 L Albumin 2.9 L Globulin 2.5 Albumin/Globulin Ratio 1.2 Urine Color [place] Urine Clarity Cloudy Urine pH 5.0 Ur Specific [place] 1.026 Urine Protein 30 Urine Glucose (UA) Neg Urine Ketones 20 Urine Blood Negative Urine Nitrate Negative Urine Bilirubin Negative Urine Urobilinogen 0.2-1.0 Ur Leukocyte Esterase Neg Urine RBC (Auto) 3 Urine Microscopic WBC 2 Ur Squamous Epith Cells < 1 Amorphous Sediment Few H Urine Bacteria Rare Granular Casts (Auto) 1 07/16/17 07/16/17 05:15 05:15 WBC 9.3 RBC 3.28 L Hgb 9.5 L D Hct 29.0 L MCV 88.4 MCH 29.0 MCHC 32.8 L RDW 12.9 Plt Count 95 L D MPV 9.2 Neut % (Auto) 75.5 H Lymph % (Auto) 9.5 L [place] % (Auto) 9.2 Eos % (Auto) 5.3 H Baso % (Auto) 0.5 Neut # 7.0 Lymph # 0.9 L [place] # 0.9 H Eos # 0.5 Baso # 0.1 Neutrophils % (Manual) 76 H Band Neutrophils % 2 Lymphocytes % (Manual) 12 L Monocytes % (Manual) 7 Eosinophils % (Manual) 2 Basophils % (Manual) 1 Smudge Cells Present Platelet Estimate Slightly decreased L D-Dimer, Quantitative pCO2 pO2 HCO3 ABG pH ABG Total CO2 ABG O2 Saturation ABG O2 Content ABG Base Excess ABG Hemoglobin ABG Carboxyhemoglobin POC ABG HHb (Measured) ABG Methemoglobin ABG O2 Capacity Hola Test A-a O2 Difference Hgb O2 Saturation FiO2 Sodium 142 Potassium 4.0 Chloride 111 H Carbon Dioxide 24 Anion Gap 11 BUN 37 H Creatinine 1.9 H Est GFR ( Amer) 43 Est GFR (Non-Af Amer) 36 POC Glucose (mg/dL) Random Glucose 158 H Calcium 7.9 L Total Bilirubin AST ALT Alkaline Phosphatase Troponin I 0.1140 NT-Pro-B Natriuret Pep Total Protein Albumin Globulin Albumin/Globulin Ratio Urine Color Urine Clarity Urine pH Ur Specific [place] Urine Protein Urine Glucose (UA) Urine Ketones Urine Blood Urine Nitrate Urine Bilirubin Urine Urobilinogen Ur Leukocyte Esterase Urine RBC (Auto) Urine Microscopic WBC Ur Squamous Epith Cells Amorphous Sediment Urine Bacteria Granular Casts (Auto) Assessment & Plan - Assessment and Plan (Free Text) Plan: Case was discussed with the residents, lab work and radiographic findings were reviewed. Differential diagnoses and plan of treatment as well as further workup were all outlined in detail. I am in agreement with their findings as well as there plan of management and will follow with them. - Date & Time Date: 07/15/17 Time: 15:00
--- NOTE | 2017-07-15 11:45 | CP.PCM.PN ---
Subjective - Date & Time of Evaluation Date of Evaluation: 07/15/17 Time of Evaluation: 08:40 - Subjective Subjective: S/P RTKR POD#1 Pt seen and examined at bedisde, comfortable in bed Pt c/o mild right knee pain, well controlled with pain meds Pt c/o difficulty urinating Pt denies any SOB, chest pain, N/V/D, numbness/tingling RLE Objective - Vital Signs/Intake and Output Vital Signs (last 24 hours): Temp Pulse Resp BP Pulse Ox 100.1 F H 94 H 18 104/57 L 96 07/15/17 09:40 07/15/17 09:40 07/15/17 09:40 07/15/17 09:40 07/15/17 09:40 - Medications Medications: Current Medications Acetaminophen (Tylenol 325mg Tab) 325 mg PO Q4 PRN PRN Reason: pain1-3 Atorvastatin Calcium (Lipitor) 40 mg PO DAILY [facility] Carvedilol (Coreg) 25 mg PO BID [facility] Last Admin: 07/14/17 16:59 Dose: 25 mg Celecoxib (Celebrex) 100 mg PO Q12 [facility] Last Admin: 07/14/17 20:56 Dose: 100 mg Enoxaparin Sodium (Lovenox) 40 mg SC DAILY [facility] PRN Reason: Protocol Dextrose/Lactated Ringer's (Dextrose 5%/Lactated Ringer's) 1,000 mls @ 125 mls/ hr IV .Q8H [facility] Stop: 07/16/17 10:10 Ketorolac Tromethamine (Toradol) 15 mg IVP Q8 [facility] Lisinopril (Zestril) 40 mg PO DAILY [facility] Oxycodone HCl (Oxycontin Extended Release Tab) 20 mg PO Q12 [facility] Stop: 07/28/17 23:59 Last Admin: 07/14/17 20:56 Dose: 20 mg Oxycodone/Acetaminophen (Percocet 5/325 Mg Tab) 1 tab PO Q4 PRN PRN Reason: pain4-6 Stop: 07/17/17 13:33 Tamsulosin HCl (Flomax) 0.4 mg PO DAILY [facility] - Labs Labs: 07/15/17 05:40 07/15/17 05:40 - Constitutional Appears: Well, No Acute Distress - Respiratory Exam Respiratory Exam: Clear to Ausculation Bilateral, NORMAL BREATHING PATTERN - Cardiovascular Exam Cardiovascular Exam: REGULAR RHYTHM, RRR - Extremities Exam Additional comments: RLE: Knee dressing C/D/I Calves soft and nontender b/l Normal ROM at ankle Distal pulses wnl No foot drop Assessment and Plan - Assessment and Plan (Free Text) Assessment: 66 yo M s/p RTKR POD#1 Plan: Pain Control PT/OT WBAT RLE DVT ppx- lovenox 40mg Daily SCD b/l LE Incentive Spirometer F/U labs F/U bladder US
--- NOTE | 2017-07-15 12:01 | CP.PCM.PN ---
<Delfino Conner - Last Filed: 07/15/17 14:42> Subjective - Date & Time of Evaluation Date of Evaluation: 07/15/17 Time of Evaluation: 14:29 - Subjective Subjective: Ovenright events: patient with decreased urine output Patient seen and examined iwth attending. Patient appeared somnolent but arousable, was able to responds to questions. Due to decreased urine output and LIYAH, bolus of LR was ordered, his BP subsequently dropped to SBP 80s, oxygen saturation dropped to 80s as well. [employer] TECHNICIAN was called. Patient had ABG done, 1L NS bolus ordered. Transferred to ICU. Patient evaluated in ICU. NG tube was placed. Vargas catheter was placed with > 350cc return after initial placement. Pt now more lethargic. On ventimask. He is for V/Q scan and doppler of lower extremities. I have discontinued Toradol. Objective - Vital Signs/Intake and Output Vital Signs (last 24 hours): Temp Pulse Resp BP Pulse Ox 100.1 F H 94 H 18 104/57 L 96 07/15/17 09:40 07/15/17 09:40 07/15/17 09:40 07/15/17 09:40 07/15/17 09:40 - Medications Medications: Current Medications Acetaminophen (Tylenol 325mg Tab) 325 mg PO Q4 PRN PRN Reason: pain1-3 Atorvastatin Calcium (Lipitor) 40 mg PO DAILY [facility] Carvedilol (Coreg) 25 mg PO BID [facility] Last Admin: 07/14/17 16:59 Dose: 25 mg Celecoxib (Celebrex) 100 mg PO Q12 [facility] Last Admin: 07/14/17 20:56 Dose: 100 mg Enoxaparin Sodium (Lovenox) 40 mg SC DAILY [facility] PRN Reason: Protocol Dextrose/Lactated Ringer's (Dextrose 5%/Lactated Ringer's) 1,000 mls @ 125 mls/ hr IV .Q8H [facility] Stop: 07/16/17 10:10 Ketorolac Tromethamine (Toradol) 15 mg IVP Q8 [facility] Lisinopril (Zestril) 40 mg PO DAILY [facility] Oxycodone HCl (Oxycontin Extended Release Tab) 20 mg PO Q12 [facility] Stop: 07/28/17 23:59 Last Admin: 07/14/17 20:56 Dose: 20 mg Oxycodone/Acetaminophen (Percocet 5/325 Mg Tab) 1 tab PO Q4 PRN PRN Reason: pain4-6 Stop: 07/17/17 13:33 Tamsulosin HCl (Flomax) 0.4 mg PO DAILY [facility] - Labs Labs: 07/15/17 05:40 07/15/17 05:40 - Constitutional Appears: No Acute Distress (lethargic) - Head Exam Head Exam: ATRAUMATIC, NORMAL INSPECTION, NORMOCEPHALIC - Eye Exam Eye Exam: Normal appearance, PERRL - ENT Exam ENT Exam: Mucous Membranes Moist - Respiratory Exam Respiratory Exam: Clear to Ausculation Bilateral, NORMAL BREATHING PATTERN - Cardiovascular Exam Cardiovascular Exam: Tachycardia, REGULAR RHYTHM, +S1, +S2 - GI/Abdominal Exam GI & Abdominal Exam: Distended, Hypoactive Bowel Sounds. absent: Tenderness - Rectal Exam Rectal Exam: Deferred - Neurological Exam Neurological Exam: Altered - Skin Skin Exam: Dry, Intact Assessment and Plan - Assessment and Plan (Free Text) Assessment: 66 year old male s/p R total knee replacement, with acute decompensation now with hypotension, respiratory insufficiency LIYAH and altered mental status. Given change in mental status, hypotension need to rule out NM/PE. Ideally would like to obtain CTA of chest but given LIYAH, radiology needs to approve. VQ scan ordered, dopplers of lower extremities ordered. LIYAH possibly secondary to nephrotoxic medications vs volume depletion Hypotension could be due to volume depletion vs NM vs PE Cardiology consult (Dr. Gaston) and pulmonology consult (Dr. Levin) Transferred to ICU, Case d/w Materials Specialist. #Hypotension #Altered Mental Status #LIYAH #DVT PPX -Continue with IVF: D5/LR, monitor BP -NG tube to suction -F/u VQ scan/Lower ext doppler. -Elevated troponin, await cardiology input -Follow urine output closely -hold BP medications for now. -Monitor renal function -lovenox for dvt prophylaxis -blood and urine cultures ordered <Nathaniel Sanford - Last Filed: 07/15/17 17:06> Objective - Vital Signs/Intake and Output Vital Signs (last 24 hours): Temp Pulse Resp BP Pulse Ox 99.5 F 98 H 24 109/57 L 99 07/15/17 16:00 07/15/17 16:00 07/15/17 16:00 07/15/17 16:00 07/15/17 16:00 - Medications Medications: Current Medications Acetaminophen (Tylenol 325mg Tab) 325 mg PO Q4 PRN PRN Reason: pain1-3 Atorvastatin Calcium (Lipitor) 40 mg PO DAILY [facility] Last Admin: 07/15/17 15:44 Dose: Not Given Carvedilol (Coreg) 25 mg PO BID [facility] Last Admin: 07/14/17 16:59 Dose: 25 mg Celecoxib (Celebrex) 100 mg PO Q12 [facility] Last Admin: 07/15/17 15:44 Dose: Not Given Enoxaparin Sodium (Lovenox) 40 mg SC DAILY [facility] PRN Reason: Protocol Last Admin: 07/15/17 15:45 Dose: 40 mg Dextrose/Lactated Ringer's (Dextrose 5%/Lactated Ringer's) 1,000 mls @ 125 mls/ hr IV .Q8H [facility] Stop: 07/16/17 10:10 Last Admin: 07/15/17 10:10 Dose: 125 mls/hr Ketorolac Tromethamine (Toradol) 15 mg IVP Q8 [facility] Lisinopril (Zestril) 40 mg PO DAILY [facility] Oxycodone HCl (Oxycontin Extended Release Tab) 20 mg PO Q12 [facility] Stop: 07/28/17 23:59 Last Admin: 07/14/17 20:56 Dose: 20 mg Oxycodone/Acetaminophen (Percocet 5/325 Mg Tab) 1 tab PO Q4 PRN PRN Reason: pain4-6 Stop: 07/17/17 13:33 Tamsulosin HCl (Flomax) 0.4 mg PO DAILY [facility] - Labs Labs: 07/15/17 05:40 07/15/17 05:40 Assessment and Plan - Assessment and Plan (Free Text) Plan: I was present during evaluation and discussed with Dr Conner and discussed with Dr Gaston and Dr Poonam pacheco. Noted increased abd girth Noted elevated troponin and probnp. will send for ECHO.
--- NOTE | 2017-07-15 12:29 | RAD ---
HISTORY: Decreased O2 sat; hypotention s/p R TKR COMPARISON: No prior. FINDINGS: LUNGS: There are low lung volumes. No focal consolidation. PLEURA: No significant pleural effusion identified, no pneumothorax apparent. CARDIOVASCULAR: Normal. OSSEOUS STRUCTURES: No significant abnormalities. VISUALIZED UPPER ABDOMEN: Normal. OTHER FINDINGS: None. IMPRESSION: No active pulmonary disease. Low lung volumes may be related to poor inspiratory effort.
--- NOTE | 2017-07-15 12:42 | RAD ---
HISTORY: abdominal distension COMPARISON: No prior. FINDINGS: BOWEL: Distention of the colon and stomach. No evidence of free air. BONES: Normal. OTHER FINDINGS: None. IMPRESSION: Distention of stomach and colon likely ileus rather than obstruction.
--- NOTE | 2017-07-15 14:39 | NM ---
COMPARISON: July 15, 2017. Single-view chest TECHNIQUE: 39.5 mCi technetium 99-m DTPA aerosol. 3.6 mCI technetium 99-m MAA administered intravenously. FINDINGS: VENTILATION COMPONENT: Heterogeneous ventilation. Retention of radionuclide in the tracheobronchial tree and ingestion of radionuclide in the stomach, incidental findings PERFUSION COMPONENT: Heterogeneous distribution of radionuclide. No geographic, segmental, lobar abnormalities apparent on the present examination. Matched defects in both apices the profusion are considerably smaller than the ventilation findings. IMPRESSION: Low probability ventilation perfusion scan for pulmonary embolism.
[2017-07-15] MEDS: Enoxaparin 40 mg Syringe SC SCH (15:45)
[2017-07-15 16:18] LABS: URINE BACTERIA RARE (<OCC); URINE BILIRUBIN NEGATIVE (NEGATIVE); URINE BLOOD NEGATIVE (NEGATIVE); URINE COLOR AMBER (YELLOW); URINE GLUCOSE (UA) NEG (Normal); URINE KETONE 20 mg/dL (NEGATIVE); URINE LEUKOCYTE ESTERASE NEG Leu/uL (Negative); URINE PROTEIN 30 mg/dL (NEGATIVE); URINE UROBILINOGEN 0.2-1.0 mg/dL (0.2-1.0)
[2017-07-15 16:22] LABS: GRANULAR CAST 1 /lpf (0-1); RBC URINE 3 /hpf (0-3); WBC URINE 2 /hpf (0-5)
--- NOTE | 2017-07-15 17:59 | CP.PCM.CON ---
History of Present Illness - History of Present Illness History of Present Illness: I was asked to see patient by Dr Sanford. Patient is a 66 year old male with a PMH HTN, hypercholesterolemia nonobstructive CAD who presents for elective TKR. The patient has cardioliogy follow up with Dr Russ in [place]. The patient had a cardiac cath revealing nonobstructive CAD, mildly depressed LV function. He was deemed optimized for knee replacement by his exhauster. The patient developed acute onset of hypotension in his room abfet surgery. he was transferred to ICU. prBNP is elevated. The family is at the bedside. Review of Systems - Review of Systems Systems not reviewed;Unavailable: Altered Mental Status Past Patient History - Past Medical History & Family History Past Medical History?: Yes - Past Social History Smoking Status: Never Smoked - CARDIAC Hx Cardiac Disorders: Yes Hx Hypercholesterolemia: Yes Hx Hypertension: Yes Other/Comment: HTN, HLD - PULMONARY Hx Respiratory Disorders: No Hx Asthma: No Hx Chronic Obstructive Pulmonary Disease (COPD): No - NEUROLOGICAL Hx Neurological Disorder: No - HEENT Hx HEENT Problems: No - RENAL Hx Chronic Kidney Disease: No - ENDOCRINE/METABOLIC Hx Endocrine Disorders: No - HEMATOLOGICAL/ONCOLOGICAL Hx Blood Disorders: No Hx Blood Transfusions: No - INTEGUMENTARY Hx Dermatological Problems: No - MUSCULOSKELETAL/RHEUMATOLOGICAL Hx Musculoskeletal Disorders: Yes Hx Arthritis: Yes - GASTROINTESTINAL Hx Gastrointestinal Disorders: No - GENITOURINARY/GYNECOLOGICAL Hx Genitourinary Disorders: No - PSYCHIATRIC Hx Psychophysiologic Disorder: Yes Hx Depression: Yes - SURGICAL HISTORY Hx Surgeries: Yes Other/Comment: HERNIA SURGERY - ANESTHESIA Hx Anesthesia: Yes Hx Anesthesia Reactions: No Hx Malignant Hyperthermia: No Has any member of the family had a problem w/ anesthesia?: No Meds Allergies/Adverse Reactions: Allergies Allergy/AdvReac Type Severity Reaction Status Date / Time No Known Allergies Allergy Verified 07/07/17 16:29 - Medications Medications: Current Medications Acetaminophen (Tylenol 325mg Tab) 325 mg PO Q4 PRN PRN Reason: pain1-3 Atorvastatin Calcium (Lipitor) 40 mg PO DAILY [facility] Last Admin: 07/15/17 15:44 Dose: Not Given Carvedilol (Coreg) 25 mg PO BID [facility] Last Admin: 07/14/17 16:59 Dose: 25 mg Celecoxib (Celebrex) 100 mg PO Q12 [facility] Last Admin: 07/15/17 15:44 Dose: Not Given Enoxaparin Sodium (Lovenox) 40 mg SC DAILY [facility] PRN Reason: Protocol Last Admin: 07/15/17 15:45 Dose: 40 mg Dextrose/Lactated Ringer's (Dextrose 5%/Lactated Ringer's) 1,000 mls @ 125 mls/ hr IV .Q8H [facility] Stop: 07/16/17 10:10 Last Admin: 07/15/17 10:10 Dose: 125 mls/hr Ketorolac Tromethamine (Toradol) 15 mg IVP Q8 [facility] Lisinopril (Zestril) 40 mg PO DAILY [facility] Oxycodone HCl (Oxycontin Extended Release Tab) 20 mg PO Q12 [facility] Stop: 07/28/17 23:59 Last Admin: 07/14/17 20:56 Dose: 20 mg Oxycodone/Acetaminophen (Percocet 5/325 Mg Tab) 1 tab PO Q4 PRN PRN Reason: pain4-6 Stop: 07/17/17 13:33 Tamsulosin HCl (Flomax) 0.4 mg PO DAILY [facility] Physical Exam - Constitutional Additional comments: depressed mental status - Head Exam Head Exam: NORMAL INSPECTION - Eye Exam Eye Exam: Normal appearance - ENT Exam ENT Exam: Mucous Membranes Moist - Neck Exam Neck exam: Positive for: Full Rom - Respiratory Exam Respiratory Exam: Decreased Breath Sounds - Cardiovascular Exam Cardiovascular Exam: REGULAR RHYTHM - GI/Abdominal Exam GI & Abdominal Exam: Normal Bowel Sounds - Rectal Exam Rectal Exam: Deferred - Extremities Exam Extremities exam: Negative for: pedal edema - Back Exam Back exam: NORMAL INSPECTION - Neurological Exam Additional comments: opens eyes - Skin Skin Exam: Normal Color Results - Vital Signs Recent Vital Signs: Last Vital Signs Temp 99.5 F 07/15/17 16:00 Pulse 98 H 07/15/17 16:00 Resp 24 07/15/17 16:00 BP 109/57 L 07/15/17 16:00 Pulse Ox 99 07/15/17 16:00 - Labs Result Diagrams: 07/15/17 05:40 07/15/17 05:40 Labs: Laboratory Results - last 24 hr 07/15/17 07/15/17 07/15/17 05:40 05:40 08:57 WBC 12.5 H RBC 4.08 L Hgb 11.9 L Hct 35.9 MCV 87.9 MCH 29.2 MCHC 33.2 RDW 13.4 Plt Count 141 MPV 8.9 Neut % (Auto) 72.1 Lymph % (Auto) 11.8 L Cobb % (Auto) 13.5 H Eos % (Auto) 2.2 Baso % (Auto) 0.4 Neut # 9.0 H Lymph # 1.5 Cobb # 1.7 H Eos # 0.3 Baso # 0.1 D-Dimer, Quantitative pCO2 pO2 HCO3 ABG pH ABG Total CO2 ABG O2 Saturation ABG O2 Content ABG Base Excess ABG Hemoglobin ABG Carboxyhemoglobin POC ABG HHb (Measured) ABG Methemoglobin ABG O2 Capacity Hola Test A-a O2 Difference Hgb O2 Saturation FiO2 Sodium 141 Potassium 4.8 Chloride 110 H Carbon Dioxide 19 L Anion Gap 17 BUN 31 H Creatinine 2.0 H Est GFR ( Amer) 41 Est GFR (Non-Af Amer) 34 POC Glucose (mg/dL) 144 H Random Glucose 124 H Calcium 8.4 Troponin I NT-Pro-B Natriuret Pep Urine Color Urine Clarity Urine pH Ur Specific [place] Urine Protein Urine Glucose (UA) Urine Ketones Urine Blood Urine Nitrate Urine Bilirubin Urine Urobilinogen Ur Leukocyte Esterase Urine RBC (Auto) Urine Microscopic WBC Ur Squamous Epith Cells Amorphous Sediment Urine Bacteria Granular Casts (Auto) 07/15/17 07/15/17 07/15/17 09:22 10:25 11:25 WBC RBC Hgb Hct MCV MCH MCHC RDW Plt Count MPV Neut % (Auto) Lymph % (Auto) Cobb % (Auto) Eos % (Auto) Baso % (Auto) Neut # Lymph # Cobb # Eos # Baso # D-Dimer, Quantitative < 150 pCO2 37 pO2 49 L HCO3 20.1 L ABG pH 7.33 L ABG Total CO2 20.6 L ABG O2 Saturation 89.2 L ABG O2 Content 13.4 L ABG Base Excess -5.9 L ABG Hemoglobin 11.1 L ABG Carboxyhemoglobin 2.5 H POC ABG HHb (Measured) 10.4 H ABG Methemoglobin 1.2 ABG O2 Capacity 15.0 L Hola Test Yes A-a O2 Difference 104.0 Hgb O2 Saturation 85.9 L FiO2 28.0 Sodium Potassium Chloride Carbon Dioxide Anion Gap BUN Creatinine Est GFR ( Amer) Est GFR (Non-Af Amer) POC Glucose (mg/dL) Random Glucose Calcium Troponin I 0.1500 H* NT-Pro-B Natriuret Pep 5590 H Urine Color Urine Clarity Urine pH Ur Specific [place] Urine Protein Urine Glucose (UA) Urine Ketones Urine Blood Urine Nitrate Urine Bilirubin Urine Urobilinogen Ur Leukocyte Esterase Urine RBC (Auto) Urine Microscopic WBC Ur Squamous Epith Cells Amorphous Sediment Urine Bacteria Granular Casts (Auto) 07/15/17 16:06 WBC RBC Hgb Hct MCV MCH MCHC RDW Plt Count MPV Neut % (Auto) Lymph % (Auto) Cobb % (Auto) Eos % (Auto) Baso % (Auto) Neut # Lymph # Cobb # Eos # Baso # D-Dimer, Quantitative pCO2 pO2 HCO3 ABG pH ABG Total CO2 ABG O2 Saturation ABG O2 Content ABG Base Excess ABG Hemoglobin ABG Carboxyhemoglobin POC ABG HHb (Measured) ABG Methemoglobin ABG O2 Capacity Hola Test A-a O2 Difference Hgb O2 Saturation FiO2 Sodium Potassium Chloride Carbon Dioxide Anion Gap BUN Creatinine Est GFR ( Amer) Est GFR (Non-Af Amer) POC Glucose (mg/dL) Random Glucose Calcium Troponin I NT-Pro-B Natriuret Pep Urine Color Ladi Urine Clarity Cloudy Urine pH 5.0 Ur Specific [place] 1.026 Urine Protein 30 Urine Glucose (UA) Neg Urine Ketones 20 Urine Blood Negative Urine Nitrate Negative Urine Bilirubin Negative Urine Urobilinogen 0.2-1.0 Ur Leukocyte Esterase Neg Urine RBC (Auto) 3 Urine Microscopic WBC 2 Ur Squamous Epith Cells < 1 Amorphous Sediment Few H Urine Bacteria Rare Granular Casts (Auto) 1 - EKG Data EKG Interpreted by: Myself EKG shows normal: Sinus rhythm Assessment & Plan (1) Hypotension Assessment and Plan: unclear etiology. will follow Hgb to assess blood loss. check serial cardiac enzymes. check echocardiogram Status: Acute (2) CHF (congestive heart failure) Assessment and Plan: pro BNP elevated. not in overt CHF currently. will follow. Status: Acute
--- NOTE | 2017-07-15 18:00 | CARD ---
APPROVED REPORT EKG Measurement Heart [id number] <Conclusion> Normal sinus rhythm Minimal voltage criteria for LVH, may be normal variant Nonspecific T wave abnormality Prolonged QT Abnormal ECG
[2017-07-15 18:35] LABS: ALB/GLOB RATIO 1.2 (1.0-2.1); BILIRUBIN,TOTAL 0.8 mg/dl (0.2-1.3); CALCIUM 7.7 mg/dL (8.4-10.2); POTASSIUM 4.2 MMOL/L (3.6-5.0); TOTAL PROTEIN 5.4 G/DL (6.3-8.2)
--- NOTE | 2017-07-15 19:08 | US ---
Bilateral lower extremity ultrasound. Indication: Rule out DVT Technique: Duplex ultrasound evaluation of the bilateral lower extremities Comparison: None available Findings: There is normal flow, compressibility, and augmentation of the bilateral common femoral, femoral, and popliteal veins. The bilateral posterior tibial veins appear patent. Impression: No evidence of deep venous thrombosis in the bilateral lower extremities.
[2017-07-16] MEDS: Dextrose 5%/Lactated Ringer's 1,000 ML IV SCH (02:10)
[2017-07-16 06:14] LABS: BASO # 0.1 K/uL (0.0-0.2); BASO % 0.5 % (0.0-2.0); EOS # 0.5 K/uL (0.0-0.7); EOS % 5.3 % (0.0-4.0); LYMPH # 0.9 K/uL (1.0-4.3); LYMPH % 9.5 % (20.0-40.0); MEAN CELL VOLUME 88.4 fl (80.0-94.0); MEAN CORPUSCULAR HGB CONC 32.8 g/dL (33.0-37.0); MEAN PLATELET VOLUME 9.2 fl (7.2-11.7); MONO # 0.9 K/uL (0.0-0.8); MONO % 9.2 % (0.0-10.0); NEUT % 75.5 % (50.0-75.0); PLATELET COUNT 95 K/uL (130-400); RED CELL DISTRIBUTION WIDTH 12.9 % (11.5-14.5); WHITE BLOOD COUNT 9.3 K/uL (4.8-10.8)
[2017-07-16 06:46] LABS: CALCIUM 7.9 mg/dL (8.4-10.2)
[2017-07-16 06:58] LABS: TROPONIN I 0.114 ng/mL (0.00-0.120)
[2017-07-16 07:19] LABS: NEUTROPHIL 76 % (42-75); TOTAL CELLS COUNTED 100
[2017-07-16 07:20] LABS: BASOPHIL 1 % (0-2); EOSINOPHIL 2 % (0-7); SMUDGE CELLS PRESENT
--- NOTE | 2017-07-16 10:00 | CP.CCUPN ---
CCU Subjective - Physician Review Subjective (Free Text): Arousable from sleep, answers simple questions, otherwise not very interactive, no obvious distress, has been on Vemntimask and tolerated switchover to nasal cannula. Also pulled out NGt this AM< had drained approx 80 ml overnight of browninsh fluid, but drained approx 800ml from initial placmeent ysterday. Overall BP trends show improvement with systolics up to 125. He has low grade temps now to 100.5F. Remanis on IVFs with D5LR at 125 ml/hr. Other vitals and I/O's reviewed. Positive fluid balance of 1.5L last 24H. ROS: Unobtainable from lethargic Patient. No other pertinent negs or positives on 10+ system review. PMSFH: All Nursing and physician documentation reviewed to date; no new pertinent info noted relevant to current medical problems. MAJOR PROBLEMS: 1. Hypotension; r/o occult AMI, PTE, Hypovolemia, medication effect. 2. Acute Resp Insufficiency 2 Gastric Distention, r/o PTE 3. Gastric Distension 4. Urinary Retention 5. Azotemia, r/o LIYAH vs CKD PLAN: 1. V/Q scan determined to be of low probability for PTE. Venous Dopplers are negative bilaterally for DVT. 2. Nasal cannula oxygen as tolerated. 3. Low Platelets due to recent surgical procedure, r/o other medication effects, Lovenox on hold now. Has large thigh-high AMOS wrap around RLE, but still needs DVT prx therapy. Consider other pharmacolgic intervention: NOAC, ASA , wafarin: discuss with Ortho / PMD. 4. Hold Antihypertensives and pain meds for now. 5. Consider CT Brain if no improvement in neuromental status and formal Neurology eval. Unclear baseline functional status?? 6. Watch temps, has only been on Ancef. Would panculture and consider empiric abx coverage. CCU Objective - Vital Signs / Intake & Output Vital Signs (Last 4 hours): Vital Signs Temp Pulse Resp BP Pulse Ox 07/16/17 08:00 100.5 F H 101 H 27 H 125/33 L 100 07/16/17 06:00 98 H 20 133/75 100 Intake and Output (Last 8hrs): Intake & Output 11/08/17 11/09/17 11/09/17 22:59 06:59 14:59 Intake Total 2375 1000 250 Output Total 900 950 180 Balance 1475 50 70 Intake: IV 2375 1000 250 Output: Gastric Amount 500 300 80 Nares 500 300 80 Urine 400 650 100 2-way Urethral 400 650 Urethral (Vargas) 100 Other: # Bowel Movements 0 - Physical Exam Head: Positive for: Normocephalic Pupils: Positive for: PERRL Extroacular Muscles: Positive for: EOMI. Negative for: Gaze Palsy Conjunctiva: Positive for: Normal. Negative for: Icteric Mouth: Positive for: Moist Mucous Membranes Neck: Negative for: JVD Respiratory/Chest: Positive for: Decreased Breath Sounds. Negative for: Accessory Muscle Use, Wheezes Cardiovascular: Positive for: Regular Rate and Rhythm. Negative for: Murmurs, Rub Abdomen: Positive for: Tenderness. Negative for: Distention, Mass/Organomegaly Lower Extremity: Positive for: Edema (LLE) Skin: Positive for: Warm, Dry. Negative for: Rashes Psychiatric: Positive for: Lethargic - Medications Active Medications: Active Medications Generic Name Dose Route Start Last Admin Trade Name Freq PRN Reason Stop Dose Admin Acetaminophen 325 mg 07/14/17 13:32 Tylenol 325mg Tab PO Q4 PRN pain1-3 Acetaminophen 650 mg 07/15/17 21:20 07/15/17 21:25 Tylenol 650 Mg Supp [place] 650 mg Q6 PRN Administration fever > 100.4 Atorvastatin Calcium 40 mg 07/15/17 09:00 07/16/17 09:14 Lipitor PO Not Given DAILY [facility] Carvedilol 25 mg 07/14/17 17:00 07/14/17 16:59 Coreg PO 25 mg BID [facility] Administration Celecoxib 100 mg 07/14/17 21:00 07/16/17 09:14 Celebrex PO Not Given Q12 [facility] Enoxaparin Sodium 40 mg 07/15/17 09:00 07/15/17 15:45 Lovenox SC 40 mg DAILY [facility] Administration Protocol Dextrose/Lactated Ringer's 1,000 mls @ 125 mls/hr 07/15/17 10:15 07/16/17 02: 10 Dextrose 5%/Lactated Ringer's IV 07/16/17 10:10 125 mls/hr .Q8H [facility] Administration Ketorolac Tromethamine 15 mg 07/15/17 08:28 Toradol IVP Q8 [facility] Lisinopril 40 mg 07/15/17 09:00 Zestril PO DAILY [facility] Oxycodone HCl 20 mg 07/14/17 21:00 07/14/17 20:56 Oxycontin Extended Release Tab PO 07/28/17 23:59 20 mg Q12 [facility] Administration Oxycodone/Acetaminophen 1 tab 07/14/17 13:32 Percocet 5/325 Mg Tab PO 07/17/17 13:33 Q4 PRN pain4-6 Tamsulosin HCl 0.4 mg 07/15/17 09:00 Flomax PO DAILY [facility] - Patient Studies Lab Studies: Microbiology Studies 07/14/17 12:32 Gram Stain - Final Knee - Right Wound Culture - Preliminary NO GROWTH AFTER 24 HOURS 07/14/17 10:21 Gram Stain - Final Synovial Fluid Body Fluid Culture - Preliminary NO GROWTH AFTER 24 HOURS Lab Studies 07/16/17 07/16/17 07/15/17 Range/Units 05:15 05:15 18:20 WBC 9.3 (4.8-10.8) K/uL RBC 3.28 L (4.40-5.90) Mil/uL Hgb 9.5 L D (12.0-18.0) g/dL Hct 29.0 L (35.0-51.0) % MCV 88.4 (80.0-94.0) fl MCH 29.0 (27.0-31.0) pg MCHC 32.8 L (33.0-37.0) g/dL RDW 12.9 (11.5-14.5) % Plt Count 95 L D (130-400) K/uL MPV 9.2 (7.2-11.7) fl Neut % (Auto) 75.5 H (50.0-75.0) % Lymph % (Auto) 9.5 L (20.0-40.0) % Living[place] % (Auto) 9.2 (0.0-10.0) % Eos % (Auto) 5.3 H (0.0-4.0) % Baso % (Auto) 0.5 (0.0-2.0) % Neut # 7.0 (1.8-7.0) K/uL Lymph # 0.9 L (1.0-4.3) K/uL Livingston # 0.9 H (0.0-0.8) K/uL Eos # 0.5 (0.0-0.7) K/uL Baso # 0.1 (0.0-0.2) K/uL Neutrophils % (Manual) 76 H (42-75) % Band Neutrophils % 2 (0-2) % Lymphocytes % (Manual) 12 L (20-50) % Monocytes % (Manual) 7 (0-10) % Eosinophils % (Manual) 2 (0-7) % Basophils % (Manual) 1 (0-2) % Smudge Cells Present Platelet Estimate Slightly decreased L (NORMAL) D-Dimer, Quantitative (0-230) ng/mlDDU Sodium 142 140 (132-148) mmol/l Potassium 4.0 4.2 (3.6-5.0) MMOL/L Chloride 111 H 110 H (98-107) mmol/L Carbon Dioxide 24 21 L (22-30) mmol/L Anion Gap 11 13 (10-20) BUN 37 H 38 H (9-20) mg/dl Creatinine 1.9 H 2.5 H (0.8-1.5) mg/dL Est GFR ( Amer) 43 32 Est GFR (Non-Af Amer) 36 26 POC Glucose (mg/dL) (65-110) mg/dL Random Glucose 158 H 167 H (75-110) mg/dL Calcium 7.9 L 7.7 L (8.4-10.2) mg/dL Total Bilirubin 0.8 (0.2-1.3) mg/dl AST 38 (17-59) U/L ALT 36 (21-72) U/L Alkaline Phosphatase 69 (38-126) U/L Troponin I 0.1140 (0.00-0.120) ng/mL NT-Pro-B Natriuret Pep (0-900) pg/ml Total Protein 5.4 L (6.3-8.2) G/DL Albumin 2.9 L (3.5-5.0) g/dL Globulin 2.5 (2.2-3.9) gm/dL Albumin/Globulin Ratio 1.2 (1.0-2.1) Urine Color (YELLOW) Urine Clarity (Clear) Urine pH (5.0-8.0) Ur Specific Tangent (1.003-1.030) Urine Protein (NEGATIVE) mg/dL Urine Glucose (UA) (Normal) mg/dL Urine Ketones (NEGATIVE) mg/dL Urine Blood (NEGATIVE) Urine Nitrate (NEGATIVE) Urine Bilirubin (NEGATIVE) Urine Urobilinogen (0.2-1.0) mg/dL Ur Leukocyte Esterase (Negative) Michael/uL Urine RBC (Auto) (0-3) /hpf Urine Microscopic WBC (0-5) /hpf Ur Squamous Epith Cells (0-5) /hpf Amorphous Sediment (<OCC) /ul Urine Bacteria (<OCC) Granular Casts (Auto) (0-1) /lpf 07/15/17 07/15/17 07/15/17 Range/Units 16:06 11:25 10:25 WBC (4.8-10.8) K/uL RBC (4.40-5.90) Mil/uL Hgb (12.0-18.0) g/dL Hct (35.0-51.0) % MCV (80.0-94.0) fl MCH (27.0-31.0) pg MCHC (33.0-37.0) g/dL RDW (11.5-14.5) % Plt Count (130-400) K/uL MPV (7.2-11.7) fl Neut % (Auto) (50.0-75.0) % Lymph % (Auto) (20.0-40.0) % Livingston % (Auto) (0.0-10.0) % Eos % (Auto) (0.0-4.0) % Baso % (Auto) (0.0-2.0) % Neut # (1.8-7.0) K/uL Lymph # (1.0-4.3) K/uL Livingston # (0.0-0.8) K/uL Eos # (0.0-0.7) K/uL Baso # (0.0-0.2) K/uL Neutrophils % (Manual) (42-75) % Band Neutrophils % (0-2) % Lymphocytes % (Manual) (20-50) % Monocytes % (Manual) (0-10) % Eosinophils % (Manual) (0-7) % Basophils % (Manual) (0-2) % Smudge Cells Platelet Estimate (NORMAL) D-Dimer, Quantitative < 150 (0-230) ng/mlDDU Sodium (132-148) mmol/l Potassium (3.6-5.0) MMOL/L Chloride (98-107) mmol/L Carbon Dioxide (22-30) mmol/L Anion Gap (10-20) BUN (9-20) mg/dl Creatinine (0.8-1.5) mg/dL Est GFR ( Amer) Est GFR (Non-Af Amer) POC Glucose (mg/dL) (65-110) mg/dL Random Glucose (75-110) mg/dL Calcium (8.4-10.2) mg/dL Total Bilirubin (0.2-1.3) mg/dl AST (17-59) U/L ALT (21-72) U/L Alkaline Phosphatase (38-126) U/L Troponin I 0.1500 H* (0.00-0.120) ng/mL NT-Pro-B Natriuret Pep 5590 H (0-900) pg/ml Total Protein (6.3-8.2) G/DL Albumin (3.5-5.0) g/dL Globulin (2.2-3.9) gm/dL Albumin/Globulin Ratio (1.0-2.1) Urine Color Ladi (YELLOW) Urine Clarity Cloudy (Clear) Urine pH 5.0 (5.0-8.0) Ur Specific Tangent 1.026 (1.003-1.030) Urine Protein 30 (NEGATIVE) mg/dL Urine Glucose (UA) Neg (Normal) mg/dL Urine Ketones 20 (NEGATIVE) mg/dL Urine Blood Negative (NEGATIVE) Urine Nitrate Negative (NEGATIVE) Urine Bilirubin Negative (NEGATIVE) Urine Urobilinogen 0.2-1.0 (0.2-1.0) mg/dL Ur Leukocyte Esterase Neg (Negative) Michael/uL Urine RBC (Auto) 3 (0-3) /hpf Urine Microscopic WBC 2 (0-5) /hpf Ur Squamous Epith Cells < 1 (0-5) /hpf Amorphous Sediment Few H (<OCC) /ul Urine Bacteria Rare (<OCC) Granular Casts (Auto) 1 (0-1) /lpf 07/15/17 Range/Units 08:57 WBC (4.8-10.8) K/uL RBC (4.40-5.90) Mil/uL Hgb (12.0-18.0) g/dL Hct (35.0-51.0) % MCV (80.0-94.0) fl MCH (27.0-31.0) pg MCHC (33.0-37.0) g/dL RDW (11.5-14.5) % Plt Count (130-400) K/uL MPV (7.2-11.7) fl Neut % (Auto) (50.0-75.0) % Lymph % (Auto) (20.0-40.0) % Livingston % (Auto) (0.0-10.0) % Eos % (Auto) (0.0-4.0) % Baso % (Auto) (0.0-2.0) % Neut # (1.8-7.0) K/uL Lymph # (1.0-4.3) K/uL Livingston # (0.0-0.8) K/uL Eos # (0.0-0.7) K/uL Baso # (0.0-0.2) K/uL Neutrophils % (Manual) (42-75) % Band Neutrophils % (0-2) % Lymphocytes % (Manual) (20-50) % Monocytes % (Manual) (0-10) % Eosinophils % (Manual) (0-7) % Basophils % (Manual) (0-2) % Smudge Cells Platelet Estimate (NORMAL) D-Dimer, Quantitative (0-230) ng/mlDDU Sodium (132-148) mmol/l Potassium (3.6-5.0) MMOL/L Chloride (98-107) mmol/L Carbon Dioxide (22-30) mmol/L Anion Gap (10-20) BUN (9-20) mg/dl Creatinine (0.8-1.5) mg/dL Est GFR ( Amer) Est GFR (Non-Af Amer) POC Glucose (mg/dL) 144 H (65-110) mg/dL Random Glucose (75-110) mg/dL Calcium (8.4-10.2) mg/dL Total Bilirubin (0.2-1.3) mg/dl AST (17-59) U/L ALT (21-72) U/L Alkaline Phosphatase (38-126) U/L Troponin I (0.00-0.120) ng/mL NT-Pro-B Natriuret Pep (0-900) pg/ml Total Protein (6.3-8.2) G/DL Albumin (3.5-5.0) g/dL Globulin (2.2-3.9) gm/dL Albumin/Globulin Ratio (1.0-2.1) Urine Color (YELLOW) Urine Clarity (Clear) Urine pH (5.0-8.0) Ur Specific Tangent (1.003-1.030) Urine Protein (NEGATIVE) mg/dL Urine Glucose (UA) (Normal) mg/dL Urine Ketones (NEGATIVE) mg/dL Urine Blood (NEGATIVE) Urine Nitrate (NEGATIVE) Urine Bilirubin (NEGATIVE) Urine Urobilinogen (0.2-1.0) mg/dL Ur Leukocyte Esterase (Negative) Michael/uL Urine RBC (Auto) (0-3) /hpf Urine Microscopic WBC (0-5) /hpf Ur Squamous Epith Cells (0-5) /hpf Amorphous Sediment (<OCC) /ul Urine Bacteria (<OCC) Granular Casts (Auto) (0-1) /lpf Laboratory Results - last 24 hr 07/15/17 07/15/17 07/15/17 08:57 10:25 11:25 WBC RBC Hgb Hct MCV MCH MCHC RDW Plt Count MPV Neut % (Auto) Lymph % (Auto) Livingston % (Auto) Eos % (Auto) Baso % (Auto) Neut # Lymph # Livingston # Eos # Baso # Neutrophils % (Manual) Band Neutrophils % Lymphocytes % (Manual) Monocytes % (Manual) Eosinophils % (Manual) Basophils % (Manual) Smudge Cells Platelet Estimate D-Dimer, Quantitative < 150 Sodium Potassium Chloride Carbon Dioxide Anion Gap BUN Creatinine Est GFR ( Amer) Est GFR (Non-Af Amer) POC Glucose (mg/dL) 144 H Random Glucose Calcium Total Bilirubin AST ALT Alkaline Phosphatase Troponin I 0.1500 H* NT-Pro-B Natriuret Pep 5590 H Total Protein Albumin Globulin Albumin/Globulin Ratio Urine Color Urine Clarity Urine pH Ur Specific Tangent Urine Protein Urine Glucose (UA) Urine Ketones Urine Blood Urine Nitrate Urine Bilirubin Urine Urobilinogen Ur Leukocyte Esterase Urine RBC (Auto) Urine Microscopic WBC Ur Squamous Epith Cells Amorphous Sediment Urine Bacteria Granular Casts (Auto) 07/15/17 07/15/17 07/16/17 16:06 18:20 05:15 WBC 9.3 RBC 3.28 L Hgb 9.5 L D Hct 29.0 L MCV 88.4 MCH 29.0 MCHC 32.8 L RDW 12.9 Plt Count 95 L D MPV 9.2 Neut % (Auto) 75.5 H Lymph % (Auto) 9.5 L Livingston % (Auto) 9.2 Eos % (Auto) 5.3 H Baso % (Auto) 0.5 Neut # 7.0 Lymph # 0.9 L Livingston # 0.9 H Eos # 0.5 Baso # 0.1 Neutrophils % (Manual) 76 H Band Neutrophils % 2 Lymphocytes % (Manual) 12 L Monocytes % (Manual) 7 Eosinophils % (Manual) 2 Basophils % (Manual) 1 Smudge Cells Present Platelet Estimate Slightly decreased L D-Dimer, Quantitative Sodium 140 Potassium 4.2 Chloride 110 H Carbon Dioxide 21 L Anion Gap 13 BUN 38 H Creatinine 2.5 H Est GFR ( Amer) 32 Est GFR (Non-Af Amer) 26 POC Glucose (mg/dL) Random Glucose 167 H Calcium 7.7 L Total Bilirubin 0.8 AST 38 ALT 36 Alkaline Phosphatase 69 Troponin I NT-Pro-B Natriuret Pep Total Protein 5.4 L Albumin 2.9 L Globulin 2.5 Albumin/Globulin Ratio 1.2 Urine Color Ladi Urine Clarity Cloudy Urine pH 5.0 Ur Specific Tangent 1.026 Urine Protein 30 Urine Glucose (UA) Neg Urine Ketones 20 Urine Blood Negative Urine Nitrate Negative Urine Bilirubin Negative Urine Urobilinogen 0.2-1.0 Ur Leukocyte Esterase Neg Urine RBC (Auto) 3 Urine Microscopic WBC 2 Ur Squamous Epith Cells < 1 Amorphous Sediment Few H Urine Bacteria Rare Granular Casts (Auto) 1 07/16/17 05:15 WBC RBC Hgb Hct MCV MCH MCHC RDW Plt Count MPV Neut % (Auto) Lymph % (Auto) Livingston % (Auto) Eos % (Auto) Baso % (Auto) Neut # Lymph # Livingston # Eos # Baso # Neutrophils % (Manual) Band Neutrophils % Lymphocytes % (Manual) Monocytes % (Manual) Eosinophils % (Manual) Basophils % (Manual) Smudge Cells Platelet Estimate D-Dimer, Quantitative Sodium 142 Potassium 4.0 Chloride 111 H Carbon Dioxide 24 Anion Gap 11 BUN 37 H Creatinine 1.9 H Est GFR ( Amer) 43 Est GFR (Non-Af Amer) 36 POC Glucose (mg/dL) Random Glucose 158 H Calcium 7.9 L Total Bilirubin AST ALT Alkaline Phosphatase Troponin I 0.1140 NT-Pro-B Natriuret Pep Total Protein Albumin Globulin Albumin/Globulin Ratio Urine Color Urine Clarity Urine pH Ur Specific Tangent Urine Protein Urine Glucose (UA) Urine Ketones Urine Blood Urine Nitrate Urine Bilirubin Urine Urobilinogen Ur Leukocyte Esterase Urine RBC (Auto) Urine Microscopic WBC Ur Squamous Epith Cells Amorphous Sediment Urine Bacteria Granular Casts (Auto) Review of Systems - Review of Systems Systems not reviewed;Unavailable: Altered Mental Status Critical Care Progress Note - Nutrition Nutrition: Nutrition Category Date Time Status NPO Diet [DIET] Diets 07/15/17 Breakfast Active
--- NOTE | 2017-07-16 11:44 | CP.PCM.PN ---
Subjective - Date & Time of Evaluation Date of Evaluation: 07/16/17 Time of Evaluation: 11:42 - Subjective Subjective: POD# 2 s/p right TKR Patient seen and examined with attending. Slightly more responsive today, able to lift head. Still on ventimask, BP has improved. NG tube to suction with brown output Vargas in place : renato urine output I&Os reviewed, +fluid balance. anemia/thrombocytopenia on todays labs, creatinine is improved Case was discussed with pulmonology and senior oracle pl sql developer. Will get a neuro consult and CT head or MRI Brain due to change in mental status. pt for echo today as well Objective - Vital Signs/Intake and Output Vital Signs (last 24 hours): Temp Pulse Resp BP Pulse Ox 100.5 F H 98 H 20 129/70 99 07/16/17 08:00 07/16/17 10:00 07/16/17 10:00 07/16/17 10:00 07/16/17 10:00 Intake and Output: 07/16/17 07/16/17 06:59 18:59 Intake Total 1500 500 Output Total 950 400 Balance 550 100 - Medications Medications: Current Medications Acetaminophen (Tylenol 325mg Tab) 325 mg PO Q4 PRN PRN Reason: pain1-3 Acetaminophen (Tylenol 650 Mg Supp) 650 mg [place] Q6 PRN PRN Reason: fever > 100.4 Last Admin: 07/15/17 21:25 Dose: 650 mg Atorvastatin Calcium (Lipitor) 40 mg PO DAILY [facility] Last Admin: 07/16/17 09:14 Dose: Not Given Carvedilol (Coreg) 25 mg PO BID [facility] Last Admin: 07/14/17 16:59 Dose: 25 mg Celecoxib (Celebrex) 100 mg PO Q12 [facility] Last Admin: 07/16/17 09:14 Dose: Not Given Enoxaparin Sodium (Lovenox) 40 mg SC DAILY [facility] PRN Reason: Protocol Last Admin: 07/15/17 15:45 Dose: 40 mg Cefazolin Sodium/Dextrose (Ancef Iv 1 Gm Duplex) 1 gm in 50 mls @ 50 mls/hr IVPB Q12 [facility] PRN Reason: Protocol Ketorolac Tromethamine (Toradol) 15 mg IVP Q8 [facility] Lisinopril (Zestril) 40 mg PO DAILY [facility] Oxycodone HCl (Oxycontin Extended Release Tab) 20 mg PO Q12 [facility] Stop: 07/28/17 23:59 Last Admin: 07/14/17 20:56 Dose: 20 mg Oxycodone/Acetaminophen (Percocet 5/325 Mg Tab) 1 tab PO Q4 PRN PRN Reason: pain4-6 Stop: 07/17/17 13:33 Tamsulosin HCl (Flomax) 0.4 mg PO DAILY [facility] - Labs Labs: 07/16/17 05:15 07/16/17 05:15 - Constitutional Appears: Other (arousable, responding more today) - Head Exam Head Exam: ATRAUMATIC, NORMAL INSPECTION, NORMOCEPHALIC - Respiratory Exam Respiratory Exam: NORMAL BREATHING PATTERN. absent: Accessory Muscle Use, Rhonchi, Wheezes, Respiratory Distress Additional comments: clear anteriorly, mild rales at lung bases - Cardiovascular Exam Cardiovascular Exam: REGULAR RHYTHM, +S1, +S2 Additional comments: distant heart sounds - GI/Abdominal Exam GI & Abdominal Exam: Soft, Hypoactive Bowel Sounds. absent: Guarding, Tenderness - Rectal Exam Rectal Exam: Deferred - Neurological Exam Additional comments: more alert today - Skin Skin Exam: Dry, Intact, Pallor Assessment and Plan - Assessment and Plan (Free Text) Assessment: POD#2 66 year old male s/p R total knee replacement, with acute decompensation now with hypotension, respiratory insufficiency LIYAH and altered mental status. Patient remains altered, neurology consult ordered will get ct head or MRI brain. VQ scan did not reveal PE, DDimer very elevated >[id number], possibly secondary to surgical procedure given that VQ and LE dopplers were negative. LIYAH is improving with IVF, Monitor for fluid overload Echo ordered Cardiology consult (Dr. Gaston) and pulmonology consult (Dr. Levin) appreciated Case d/w Tissue Specialist and product safety consultant on rounds this AM #Hypotension-improving #Altered Mental Status #LIYAH-improving #Anemia, acute likely due to blood loss vs dilutional #Thrombocytopenia #DVT PPX -Continue with IVF: D5/LR, improved BP will continue for now due to LIYAH, monitor for overload. -follow ins and outs, +fluid balance -follow echo report -follow MRI report -hold BP medications for now. -lovenox held due to drop in platelets, heparin ab ordered, if negative will resume lovenox, can consider high dose aspirin -blood and urine cultures ordered -monitor hg and platelets case d/w Dr. Sanford
--- NOTE | 2017-07-16 12:03 | RAD ---
HISTORY: Hypoxia COMPARISON: July 15, 2017. FINDINGS: LUNGS: No active pulmonary disease. PLEURA: No significant pleural effusion identified, no pneumothorax apparent. CARDIOVASCULAR: Cardiomegaly. No evidence of acute, significant cardiovascular disease. OSSEOUS STRUCTURES: No significant abnormalities. VISUALIZED UPPER ABDOMEN: Normal. OTHER FINDINGS: None. IMPRESSION: No active disease. No significant interval change compared to the prior examination(s).
--- NOTE | 2017-07-16 12:12 | CP.PCM.PN ---
Subjective - Date & Time of Evaluation Date of Evaluation: 07/16/17 Time of Evaluation: 12:00 - Subjective Subjective: patient is more awake. Objective - Vital Signs/Intake and Output Vital Signs (last 24 hours): Temp Pulse Resp BP Pulse Ox 100.5 F H 98 H 20 129/70 99 07/16/17 08:00 07/16/17 10:00 07/16/17 10:00 07/16/17 10:00 07/16/17 10:00 Intake and Output: 07/16/17 07/16/17 06:59 18:59 Intake Total 1500 500 Output Total 950 400 Balance 550 100 - Medications Medications: Current Medications Acetaminophen (Tylenol 325mg Tab) 325 mg PO Q4 PRN PRN Reason: pain1-3 Acetaminophen (Tylenol 650 Mg Supp) 650 mg [place] Q6 PRN PRN Reason: fever > 100.4 Last Admin: 07/15/17 21:25 Dose: 650 mg Atorvastatin Calcium (Lipitor) 40 mg PO DAILY [facility] Last Admin: 07/16/17 09:14 Dose: Not Given Carvedilol (Coreg) 25 mg PO BID [facility] Last Admin: 07/14/17 16:59 Dose: 25 mg Celecoxib (Celebrex) 100 mg PO Q12 [facility] Last Admin: 07/16/17 09:14 Dose: Not Given Enoxaparin Sodium (Lovenox) 40 mg SC DAILY [facility] PRN Reason: Protocol Last Admin: 07/15/17 15:45 Dose: 40 mg Cefazolin Sodium/Dextrose (Ancef Iv 1 Gm Duplex) 1 gm in 50 mls @ 50 mls/hr IVPB Q12 [facility] PRN Reason: Protocol Ketorolac Tromethamine (Toradol) 15 mg IVP Q8 [facility] Lisinopril (Zestril) 40 mg PO DAILY [facility] Oxycodone HCl (Oxycontin Extended Release Tab) 20 mg PO Q12 [facility] Stop: 07/28/17 23:59 Last Admin: 07/14/17 20:56 Dose: 20 mg Oxycodone/Acetaminophen (Percocet 5/325 Mg Tab) 1 tab PO Q4 PRN PRN Reason: pain4-6 Stop: 07/17/17 13:33 Tamsulosin HCl (Flomax) 0.4 mg PO DAILY [facility] - Labs Labs: 07/16/17 05:15 07/16/17 05:15 - Constitutional Appears: Non-toxic - Head Exam Head Exam: NORMAL INSPECTION - Eye Exam Eye Exam: Normal appearance - ENT Exam ENT Exam: Mucous Membranes Moist - Neck Exam Neck Exam: Full ROM - Respiratory Exam Respiratory Exam: NORMAL BREATHING PATTERN - Cardiovascular Exam Cardiovascular Exam: REGULAR RHYTHM - GI/Abdominal Exam GI & Abdominal Exam: Normal Bowel Sounds - Rectal Exam Rectal Exam: Deferred - Extremities Exam Extremities Exam: absent: Pedal Edema - Back Exam Back Exam: NORMAL INSPECTION - Neurological Exam Neurological Exam: Alert - Psychiatric Exam Psychiatric exam: Normal Affect - Skin Skin Exam: Normal Color Assessment and Plan (1) Hypotension Assessment & Plan: holli hyovolemia. Echocardiogram reveals normal left ventricular function. Status: Acute (2) CHF (congestive heart failure) Assessment & Plan: unclear etiology. element of diastolic dysfunction. Patient holli has acute on chronic. Status: Acute
[2017-07-16 12:25] LABS: ABG ALLEN TEST YES; ARTERIAL BLOOD GAS HCO3 24.6 mmol/L (21-28); ARTERIAL BLOOD GAS O2 CAPACITY 13.1 mL/dL (16-24); ARTERIAL BLOOD GAS O2 CONTENT 12.2 ML/dL (15-23); ARTERIAL BLOOD GAS PH 7.42 (7.35-7.45); ARTERIAL BLOOD GAS PO2 52 mm/Hg (80-100); ARTERIAL BLOOD HGB O2 SAT 89.4 % (95.0-98.0); CARBOXYHEMOGLOBIN 2.1 % (0.5-1.5); HHB 6.7 % (0.0-5.0); METHEMOGLOBIN 1.8 % (0.0-3.0)
--- NOTE | 2017-07-16 12:38 | CP.PCM.PN ---
Subjective - Date & Time of Evaluation Date of Evaluation: 07/16/17 Time of Evaluation: 12:29 - Subjective Subjective: The patient was seen on rounds in the intensive care unit this morning. The case was discussed with the tobacco drummer during rounding. Recent lab data was reviewed as was the VQ lung scan and venous duplex of the lower extremities. D-dimer is noted to be over 12,000 which is probably reflective of recent surgery. VQ scan was reviewed and reported as low probability. No evidence of DVT. NG tube was passed and the stomach was decompressed. Vargas catheter was also inserted into the bladder. The patient is lying in bed breathing comfortably using standard nasal cannula. There is no paradoxical respiratory motion. No intercostal retractions. No dullness to percussion. Breath sounds are diminished but present bilaterally. Few scattered dry to medium rales are heard in the dependent areas. No audible wheezing. No bronchial breathing or egophony. Heart sounds are distant and the rhythm is regular. A soft systolic ejection murmur is present at the base. The abdomen is still protuberant but is not distended or tense. Bowel sounds are present. It is soft to palpation. Nontender. The patient is easily awakened and able to follow simple commands. He appears to answer questions appropriately but quickly falls back to sleep if not stimulated. Chest x-ray and arterial blood gas have been requested. Thrombocytopenia has occurred and the Lovenox has been placed on hold. This appears to be rather early for the Lovenox to be the causative factor. CT scan of the brain is being entertained because of change in mental status. He appears well oxygenated using standard nasal cannula and capnography has been requested. Objective - Vital Signs/Intake and Output Vital Signs (last 24 hours): Temp Pulse Resp BP Pulse Ox 99.7 F H 102 H 18 163/80 H 94 L 07/16/17 12:00 07/16/17 12:00 07/16/17 12:00 07/16/17 12:00 07/16/17 12:00 Intake and Output: 07/16/17 07/16/17 11:59 23:59 Intake Total 1500 250 Output Total 1350 135 Balance 150 115 - Medications Medications: Current Medications Acetaminophen (Tylenol 325mg Tab) 325 mg PO Q4 PRN PRN Reason: pain1-3 Acetaminophen (Tylenol 650 Mg Supp) 650 mg [place] Q6 PRN PRN Reason: fever > 100.4 Last Admin: 07/15/17 21:25 Dose: 650 mg Atorvastatin Calcium (Lipitor) 40 mg PO DAILY [facility] Last Admin: 07/16/17 09:14 Dose: Not Given Carvedilol (Coreg) 25 mg PO BID [facility] Last Admin: 07/14/17 16:59 Dose: 25 mg Celecoxib (Celebrex) 100 mg PO Q12 [facility] Last Admin: 07/16/17 09:14 Dose: Not Given Enoxaparin Sodium (Lovenox) 40 mg SC DAILY [facility] PRN Reason: Protocol Last Admin: 07/15/17 15:45 Dose: 40 mg Cefazolin Sodium/Dextrose (Ancef Iv 1 Gm Duplex) 1 gm in 50 mls @ 50 mls/hr IVPB Q12 [facility] PRN Reason: Protocol Ketorolac Tromethamine (Toradol) 15 mg IVP Q8 [facility] Lisinopril (Zestril) 40 mg PO DAILY [facility] Oxycodone HCl (Oxycontin Extended Release Tab) 20 mg PO Q12 [facility] Stop: 07/28/17 23:59 Last Admin: 07/14/17 20:56 Dose: 20 mg Oxycodone/Acetaminophen (Percocet 5/325 Mg Tab) 1 tab PO Q4 PRN PRN Reason: pain4-6 Stop: 07/17/17 13:33 Tamsulosin HCl (Flomax) 0.4 mg PO DAILY [facility] - Labs Labs: 07/16/17 05:15 07/16/17 05:15
[2017-07-16] MEDS: ceFAZolin IV 1 gm in Dextrose 1 GM/50 ML BAG IVPB SCH ×2 (13:30→20:33)
--- NOTE | 2017-07-16 14:06 | MRI ---
PROCEDURE: MRI BRAIN WITHOUT CONTRAST HISTORY: ams COMPARISON: None. TECHNIQUE: Multiplanar, multisequence MR images of the brain were obtained without intravenous contrast enhancement. FINDINGS: HEMORRHAGE: None DWI: No evidence of an acute or early subacute infarction. BRAIN PARENCHYMA: No mass effect or edema. No atrophy or chronic microvascular ischemic changes. VENTRICLES: Unremarkable. No hydrocephalus. CRANIUM: Unremarkable. ORBITS: Grossly unremarkable. PARANASAL SINUSES/MASTOIDS: Clear VASCULAR SYSTEM: Skull base flow voids intact. OTHER FINDINGS: None. IMPRESSION: Unremarkable non contrast enhanced MRI of the brain.
--- NOTE | 2017-07-16 17:31 | CARD ---
APPROVED REPORT EXAM: Two-dimensional and M-mode echocardiogram with Doppler and color Doppler. Other Information Quality : AverageRhythm : Tachycardia Technically limited study due to Very Limited Window INDICATION Congestive Heart Failure 2D DIMENSIONS IVSd1.43 (0.7-1.1cm)LVDd3.64 (3.9-5.9cm) LVOT Diameter2.22 (1.8-2.4cm)PWd1.07 (0.7-1.1cm) IVSs1.91 (0.8-1.2cm)LVDs2.29 (2.5-4.0cm) FS (%) 37.0 %PWs1.86 (0.8-1.2cm) LVEF (%)55.0 (>50%) M-Mode DIMENSIONS Left Atrium (MM)3.94 (2.5-4.0cm)IVSd1.65 (0.7-1.1cm) Aortic Root4.04 (2.2-3.7cm)LVDd4.47 (4.0-5.6cm) Aortic Cusp Exc.2.02 (1.5-2.0cm)PWd1.29 (0.7-1.1cm) IVSs1.89 cmFS (%) 41 % LVDs2.65 (2.0-3.8cm)PWs1.75 cm Mitral Valve E/A ratio0.0 TDI E/Lateral E'0.0E/Medial E'0.0 LEFT VENTRICLE The left ventricle is normal size. There is mild to moderate concentric left ventricular hypertrophy. The left ventricular function is normal. The left ventricular ejection fraction is within the normal range. There is normal LV segmental wall motion. Transmitral Doppler flow pattern is Grade I-abnormal relaxation pattern. RIGHT VENTRICLE The right ventricle is normal size. There is normal right ventricular wall thickness. The right ventricular systolic function is normal. ATRIA The left atrium size is normal. The right atrium size is normal. AORTIC VALVE The aortic valve is moderately sclerotic. No aortic regurgitation is present. There is no aortic valvular stenosis. MITRAL VALVE The mitral valve is not well visualized. There is no mitral valve stenosis. There is no mitral valve regurgitation noted. TRICUSPID VALVE The tricuspid valve is normal in structure. There is no tricuspid valve regurgitation noted. PULMONIC VALVE The pulmonary valve is normal in structure. There is no pulmonic valvular regurgitation. GREAT VESSELS The aortic root is mildly enlarged. The IVC is normal in size and collapses >50% with inspiration. PERICARDIAL EFFUSION There is a small loculated anterior pericardial effusion. <Conclusion> The left ventricle is normal size. There is mild to moderate concentric left ventricular hypertrophy. The left ventricular function is normal. The left ventricular ejection fraction is within the normal range. There is normal LV segmental wall motion. Transmitral Doppler flow pattern is Grade I-abnormal relaxation pattern.
[2017-07-17 05:22] LABS: BASO # 0.1 K/uL (0.0-0.2); BASO % 0.6 % (0.0-2.0); EOS # 0.5 K/uL (0.0-0.7); EOS % 5.4 % (0.0-4.0); HEMATOCRIT 26.2 % (35.0-51.0); MEAN CELL VOLUME 87.2 fl (80.0-94.0); MEAN CORPUSCULAR HEMOGLOBIN 28.8 pg (27.0-31.0); MEAN PLATELET VOLUME 9.4 fl (7.2-11.7); MONO # 0.7 K/uL (0.0-0.8); MONO % 8.8 % (0.0-10.0); NEUT # 6.1 K/uL (1.8-7.0); NEUT % 73.2 % (50.0-75.0); RED CELL DISTRIBUTION WIDTH 13.1 % (11.5-14.5); WHITE BLOOD COUNT 8.4 K/uL (4.8-10.8)
[2017-07-17 05:28] LABS: BLOOD UREA NITROGEN 29 mg/dl (9-20); CALCIUM 8.2 mg/dL (8.4-10.2); CARBON DIOXIDE 25 mmol/L (22-30); CHLORIDE 112 mmol/L (98-107); GFR AFRICAN-AMERICAN > 60; GLUCOSE,RANDOM 120 mg/dL (75-110); POTASSIUM 3.9 MMOL/L (3.6-5.0); SODIUM 146 mmol/l (132-148)
--- NOTE | 2017-07-17 08:33 | CP.CCUPN ---
CCU Subjective - Physician Review Subjective (Free Text): Observed patient opening eyes spontaneously, lifts head off of pillow and looks at girlfirend at the bedside. No fever spikes, BP levels have improved to systolic levels of 125-130. IVFs stopped yesterday due to good oral intake. Other vitals and I/O's reviewed. Positive fluid balance of 1.5L last 24H. ROS: Unobtainable from lethargic Patient. No other pertinent negs or positives on 10+ system review. PMSFH: All Nursing and physician documentation reviewed to date; no new pertinent info noted relevant to current medical problems. MAJOR PROBLEMS: 1. Hypotension; r/o occult AMI, PTE, Hypovolemia, medication effect. 2. Acute Resp Insufficiency 2 Gastric Distention, r/o PTE 3. Gastric Distension 4. Urinary Retention 5. Azotemia, r/o LIYAH vs CKD PLAN: 1. Creatinine levels have normalized after IVF hydration, will now order CTA Chest to look for PTE. Would also consider repeating venous Doppler studies of the legs. 2. Will resume IVFs to prevent contrast induced LIYAH today till tomorrow. 3. Mental status still not back to par. Meds re-reviewed, will hold Cymbalta and Claritin. 4. MRI brain negative for any acute pathology. No gross seizures noted, ?? other cryptogenic seizure activity?? 5. Temp spike to 101,3F max yesterday, no leukocytosis noted. Has not been on abx coverage beyond pre/post-op Ancef. Consider empiric abx coverage / ID eval. 6. Stable for Tele bed. 7. PT/ OT get OOB as tolerated. CCU Objective - Vital Signs / Intake & Output Vital Signs (Last 4 hours): Vital Signs Pulse Resp BP Pulse Ox 07/17/17 06:00 76 24 156/74 H 96 07/17/17 05:44 22 Intake and Output (Last 8hrs): Intake & Output 07/16/17 07/17/17 07/17/17 22:59 06:59 14:59 Intake Total 678 290 Output Total 221 500 Balance 457 -210 Intake: IV 458 0 Intake, Piggyback 100 Oral 120 290 Output: Urine 220 500 Urethral (Vargas) 220 500 Stool 1 Other: # Bowel Movements 1 - Physical Exam Head: Positive for: Normocephalic Pupils: Positive for: PERRL Extroacular Muscles: Positive for: EOMI. Negative for: Gaze Palsy Conjunctiva: Positive for: Normal. Negative for: Icteric Mouth: Positive for: Moist Mucous Membranes Neck: Negative for: JVD Respiratory/Chest: Positive for: Decreased Breath Sounds. Negative for: Accessory Muscle Use, Wheezes Cardiovascular: Positive for: Regular Rate and Rhythm. Negative for: Murmurs, Rub Abdomen: Positive for: Tenderness. Negative for: Distention, Mass/Organomegaly Lower Extremity: Positive for: Edema (LLE) Skin: Positive for: Warm, Dry. Negative for: Rashes Psychiatric: Positive for: Lethargic - Medications Active Medications: Active Medications Generic Name Dose Route Start Last Admin Trade Name Freq PRN Reason Stop Dose Admin Acetaminophen 325 mg 07/14/17 13:32 Tylenol 325mg Tab PO Q4 PRN pain1-3 Acetaminophen 650 mg 07/15/17 21:20 07/15/17 21:25 Tyl[address] 650 mg Q6 PRN Administration fever > 100.4 Atorvastatin Calcium 40 mg 07/15/17 09:00 07/16/17 18:35 Lipitor PO 40 mg DAILY [facility] Administration Carvedilol 25 mg 07/14/17 17:00 07/14/17 16:59 Coreg PO 25 mg BID [facility] Administration Celecoxib 100 mg 07/14/17 21:00 07/16/17 20:33 Celebrex PO 100 mg Q12 [facility] Administration Enoxaparin Sodium 40 mg 07/15/17 09:00 07/15/17 15:45 Lovenox SC 40 mg DAILY [facility] Administration Protocol Famotidine 20 mg 07/17/17 09:00 Pepcid PO BID [facility] Cefazolin Sodium/Dextrose 1 gm in 50 mls @ 50 mls/hr 07/16/17 11:15 07/16/17 20:33 Ancef Iv 1 Gm Duplex IVPB 50 mls/hr Q12 [facility] Administration Protocol Lactated Ringer's 1,000 mls @ 150 mls/hr 07/17/17 08:30 Lactated Ringer's IV 07/19/17 08:31 .Q6H40M [facility] Ketorolac Tromethamine 15 mg 07/15/17 08:28 Toradol IVP Q8 [facility] Lisinopril 40 mg 07/15/17 09:00 Zestril PO DAILY [facility] Oxycodone HCl 20 mg 07/14/17 21:00 07/14/17 20:56 Oxycontin Extended Release Tab PO 07/28/17 23:59 20 mg Q12 [facility] Administration Oxycodone/Acetaminophen 1 tab 07/14/17 13:32 Percocet 5/325 Mg Tab PO 07/17/17 13:33 Q4 PRN pain4-6 Tamsulosin HCl 0.4 mg 07/15/17 09:00 Flomax PO DAILY [facility] - Patient Studies Lab Studies: Microbiology Studies 07/14/17 12:32 Gram Stain - Final Knee - Right Wound Culture - Preliminary No growth. 07/14/17 10:21 Gram Stain - Final Synovial Fluid Body Fluid Culture - Preliminary NO GROWTH AFTER 2 DAYS 07/15/17 12:50 Blood Culture - Preliminary Blood-Venous NO GROWTH AFTER 24 HOURS 07/15/17 12:40 Blood Culture - Preliminary Blood-Venous NO GROWTH AFTER 24 HOURS Lab Studies 07/17/17 07/17/17 07/16/17 Range/Units 04:50 04:50 11:08 WBC 8.4 (4.8-10.8) K/uL RBC 3.00 L (4.40-5.90) Mil/uL Hgb 8.6 L (12.0-18.0) g/dL Hct 26.2 L (35.0-51.0) % MCV 87.2 (80.0-94.0) fl MCH 28.8 (27.0-31.0) pg MCHC 33.0 (33.0-37.0) g/dL RDW 13.1 (11.5-14.5) % Plt Count 105 L (130-400) K/uL MPV 9.4 (7.2-11.7) fl Neut % (Auto) 73.2 (50.0-75.0) % Lymph % (Auto) 12.0 L (20.0-40.0) % [place] % (Auto) 8.8 (0.0-10.0) % Eos % (Auto) 5.4 H (0.0-4.0) % Baso % (Auto) 0.6 (0.0-2.0) % Neut # 6.1 (1.8-7.0) K/uL Lymph # 1.0 (1.0-4.3) K/uL [place] # 0.7 (0.0-0.8) K/uL Eos # 0.5 (0.0-0.7) K/uL Baso # 0.1 (0.0-0.2) K/uL D-Dimer, Quantitative (0-230) ng/mlDDU pCO2 37 (35-45) mm/Hg pO2 52 L (80-100) mm/Hg HCO3 24.6 (21-28) mmol/L ABG pH 7.42 (7.35-7.45) ABG Total CO2 25.1 (22-28) mmol/L ABG O2 Saturation 93.0 L (95-98) % ABG O2 Content 12.2 L (15-23) ML/dL ABG Base Excess -0.3 (-2.0-3.0) mmol/L ABG Hemoglobin 9.7 L (11.7-17.4) g/dL ABG Carboxyhemoglobin 2.1 H (0.5-1.5) % POC ABG HHb (Measured) 6.7 H (0.0-5.0) % ABG Methemoglobin 1.8 (0.0-3.0) % ABG O2 Capacity 13.1 L (16-24) mL/dL Hola Test Yes A-a O2 Difference 116.0 mm/Hg Hgb O2 Saturation 89.4 L (95.0-98.0) % FiO2 30.0 % Blood Gas Comments 3l/m nc Crit Value Read Back N Sodium 146 (132-148) mmol/l Potassium 3.9 (3.6-5.0) MMOL/L Chloride 112 H (98-107) mmol/L Carbon Dioxide 25 (22-30) mmol/L Anion Gap 13 (10-20) BUN 29 H (9-20) mg/dl Creatinine 1.0 (0.8-1.5) mg/dL Est GFR ( Amer) > 60 Est GFR (Non-Af Amer) > 60 Random Glucose 120 H (75-110) mg/dL Calcium 8.2 L (8.4-10.2) mg/dL 07/15/17 Range/Units 11:25 WBC (4.8-10.8) K/uL RBC (4.40-5.90) Mil/uL Hgb (12.0-18.0) g/dL Hct (35.0-51.0) % MCV (80.0-94.0) fl MCH (27.0-31.0) pg MCHC (33.0-37.0) g/dL RDW (11.5-14.5) % Plt Count (130-400) K/uL MPV (7.2-11.7) fl Neut % (Auto) (50.0-75.0) % Lymph % (Auto) (20.0-40.0) % [place] % (Auto) (0.0-10.0) % Eos % (Auto) (0.0-4.0) % Baso % (Auto) (0.0-2.0) % Neut # (1.8-7.0) K/uL Lymph # (1.0-4.3) K/uL [place] # (0.0-0.8) K/uL Eos # (0.0-0.7) K/uL Baso # (0.0-0.2) K/uL D-Dimer, Quantitative 51544 H (0-230) ng/mlDDU pCO2 (35-45) mm/Hg pO2 (80-100) mm/Hg HCO3 (21-28) mmol/L ABG pH (7.35-7.45) ABG Total CO2 (22-28) mmol/L ABG O2 Saturation (95-98) % ABG O2 Content (15-23) ML/dL ABG Base Excess (-2.0-3.0) mmol/L ABG Hemoglobin (11.7-17.4) g/dL ABG Carboxyhemoglobin (0.5-1.5) % POC ABG HHb (Measured) (0.0-5.0) % ABG Methemoglobin (0.0-3.0) % ABG O2 Capacity (16-24) mL/dL Hola Test A-a O2 Difference mm/Hg Hgb O2 Saturation (95.0-98.0) % FiO2 % Blood Gas Comments Crit Value Read Back Sodium (132-148) mmol/l Potassium (3.6-5.0) MMOL/L Chloride (98-107) mmol/L Carbon Dioxide (22-30) mmol/L Anion Gap (10-20) BUN (9-20) mg/dl Creatinine (0.8-1.5) mg/dL Est GFR ( Amer) Est GFR (Non-Af Amer) Random Glucose (75-110) mg/dL Calcium (8.4-10.2) mg/dL Laboratory Results - last 24 hr 07/15/17 07/16/17 07/17/17 11:25 11:08 04:50 WBC 8.4 RBC 3.00 L Hgb 8.6 L Hct 26.2 L MCV 87.2 MCH 28.8 MCHC 33.0 RDW 13.1 Plt Count 105 L MPV 9.4 Neut % (Auto) 73.2 Lymph % (Auto) 12.0 L [place] % (Auto) 8.8 Eos % (Auto) 5.4 H Baso % (Auto) 0.6 Neut # 6.1 Lymph # 1.0 [place] # 0.7 Eos # 0.5 Baso # 0.1 D-Dimer, Quantitative 51929 H pCO2 37 pO2 52 L HCO3 24.6 ABG pH 7.42 ABG Total CO2 25.1 ABG O2 Saturation 93.0 L ABG O2 Content 12.2 L ABG Base Excess -0.3 ABG Hemoglobin 9.7 L ABG Carboxyhemoglobin 2.1 H POC ABG HHb (Measured) 6.7 H ABG Methemoglobin 1.8 ABG O2 Capacity 13.1 L Hola Test Yes A-a O2 Difference 116.0 Hgb O2 Saturation 89.4 L FiO2 30.0 Blood Gas Comments 3l/m nc Crit Value Read Back N Sodium Potassium Chloride Carbon Dioxide Anion Gap BUN Creatinine Est GFR ( Amer) Est GFR (Non-Af Amer) Random Glucose Calcium 07/17/17 04:50 WBC RBC Hgb Hct MCV MCH MCHC RDW Plt Count MPV Neut % (Auto) Lymph % (Auto) [place] % (Auto) Eos % (Auto) Baso % (Auto) Neut # Lymph # [place] # Eos # Baso # D-Dimer, Quantitative pCO2 pO2 HCO3 ABG pH ABG Total CO2 ABG O2 Saturation ABG O2 Content ABG Base Excess ABG Hemoglobin ABG Carboxyhemoglobin POC ABG HHb (Measured) ABG Methemoglobin ABG O2 Capacity Hola Test A-a O2 Difference Hgb O2 Saturation FiO2 Blood Gas Comments Crit Value Read Back Sodium 146 Potassium 3.9 Chloride 112 H Carbon Dioxide 25 Anion Gap 13 BUN 29 H Creatinine 1.0 Est GFR ( Amer) > 60 Est GFR (Non-Af Amer) > 60 Random Glucose 120 H Calcium 8.2 L Review of Systems - Review of Systems Systems not reviewed;Unavailable: Altered Mental Status Critical Care Progress Note - Nutrition Nutrition: Nutrition Category Date Time Status Dysphagia/Modified Consistency Diet [DIET] Diets 07/16/17 Dinner Active
--- NOTE | 2017-07-17 08:38 | CON ---
NEUROLOGY CONSULTATION DATE: CHIEF COMPLAINT: Altered mental status. HISTORY OF PRESENT ILLNESS: A 66-year-old man with past medical history of hypertension, hyperlipidemia, arthritis who had osteoarthritis of the right knee status post knee replacements postop #2. The patient also had low systolic and diastolic blood pressures and had poor urinary output with acute kidney injury and insufficiency and abdominal distension, likely secondary to postoperative ileus, had elevated BUN and creatinine, was consulted for drowsiness with lethargic mental status. MRI of the brain showed no acute intracranial abnormality and was unremarkable. Currently, he was seen therapy, getting up from the sitting position with help and following commands. MEDICATIONS: Reviewed by nurse per reconciliation sheet. ALLERGIES: NO KNOWN DRUG ALLERGIES. SOCIAL HISTORY: No illicit drug use, smoking or EtOH abuse. PAST MEDICAL HISTORY: History of osteoarthritis of the right knee, hypertension, hyperlipidemia. REVIEW OF SYSTEMS: A 14-point review of systems negative except in the HPI. FAMILY HISTORY: Noncontributory. PHYSICAL EXAMINATION VITAL SIGNS: Temperature 99.7, pulse rate of 104, blood pressure 156/85, respiratory rate of 20, oxygen saturation 98% via nasal cannula. GENERAL: The patient is sitting up in bed, in no acute distress. HEENT: Head is atraumatic and normocephalic. PERRLA. Extraocular muscles intact. NECK: Supple. No JVD. No adenopathy noted. LUNGS: Clear to auscultation. No adventitious sounds. HEART: S1, S2. Normal rate and rhythm. No murmurs, rubs, or gallops. ABDOMEN: Soft, nontender, and nondistended. Bowel sounds present. EXTREMITIES: No clubbing. No cyanosis. Peripheral pulses 2+ bilaterally. He has a right knee bandage. NEUROLOGIC: The patient is alert and oriented to person, place, month, and year. Speech is fluent without any errors. Cranial nerves II through XII are intact. Poor attention span. Slow thought process. Motor: Slight increased tone throughout. Moves all extremities equally except for the right lower leg due to recent right knee surgery. Sensory: Light touch, pinprick, proprioception, and vibration are intact. DTRs are 2+ throughout except for the 1 at both knees. Coordination of [id number] intact. Gait is deferred for now. LABORATORY DATA: Sodium is 142, potassium 4, chloride of 111, carbon dioxide 24, BUN of 37, creatinine 1.9, and random glucose of 144. ASSESSMENT AND PLAN: This is a 66-year-old man with history of right knee osteoarthritis, hypertension, hyperlipidemia, status post right knee surgery, found to have low systolic and diastolic blood pressures, slightly low-grade fever as well as some acute kidney injury and was consulted for altered mental status and *------*lethargy. At this time, he is more awake. MRI of his brain showed no acute intracranial abnormalities, following commands. He does have some acute kidney injury and his blood pressure is much more stabilized, likely his lethargic status is secondary to transient cerebral hypoperfusion to the brain from low systolic and diastolic blood pressures, superimposed on underlying possibly SIRS. Given his recent right knee surgery in addition to medication effect, at this time, we recommend: 1. Monitor electrolytes and correct accordingly. 2. Adequate hydration. 3. PT/OT and early ambulation for his knee. 4. Consider thiamine IV 100 q. 12 for reactivation. 5. Continue current present medical management. Thank you for this consult. Stephon Farrell MD
--- NOTE | 2017-07-17 08:45 | CP.PCM.PN ---
Subjective - Date & Time of Evaluation Date of Evaluation: 07/17/17 Time of Evaluation: 08:45 - Subjective Subjective: The patient was seen on rounds and the intensive care unit. He appears slightly somnolent although he responds appropriately to questions and verbal commands. He does not appear to be in any distress and there is no tachypnea. Lab work was reviewed and there has been significant improvement in his renal function. His hemoglobin has dropped to 8.6 g percent, no leukocytosis. Tmax yesterday morning was 100.5. SPO2 remains greater than 95% on high flow nasal cannula with 35% oxygen, 20 L/m. Abdomen is mildly distended but soft and nontender with normal bowel sounds. There is no dullness on chest percussion anteriorly. No subcutaneous emphysema. Breath sounds are present bilaterally although slightly diminished. Rare sonorous rhonchi heard with few dry rales in dependent zones posteriorly. No audible wheezing. No bronchial breathing. No rub. The heart sounds are slightly distant and the rhythm is regular. The neck is supple and trachea is midline. CT angiogram of the lungs is being contemplated for today. Definitive study for ruling out pulmonary embolism as well as interviewing of the pulmonary parenchyma. We'll maintain high flow nasal cannula at the same settings. Monitor closely hemoglobin and electrolytes. Would continue empiric Ancef. Objective - Vital Signs/Intake and Output Vital Signs (last 24 hours): Temp Pulse Resp BP Pulse Ox 99.7 F H 76 24 156/74 H 96 07/17/17 04:00 07/17/17 06:00 07/17/17 06:00 07/17/17 06:00 07/17/17 06:00 Intake and Output: 07/16/17 07/17/17 23:59 11:59 Intake Total 1153 290 Output Total 481 500 Balance 672 -210 - Medications Medications: Current Medications Acetaminophen (Tylenol 325mg Tab) 325 mg PO Q4 PRN PRN Reason: pain1-3 Acetaminophen (Tylenol 650 Mg Supp) 650 mg [place] Q6 PRN PRN Reason: fever > 100.4 Last Admin: 07/15/17 21:25 Dose: 650 mg Atorvastatin Calcium (Lipitor) 40 mg PO DAILY [facility] Last Admin: 07/16/17 18:35 Dose: 40 mg Carvedilol (Coreg) 25 mg PO BID [facility] Last Admin: 07/14/17 16:59 Dose: 25 mg Celecoxib (Celebrex) 100 mg PO Q12 [facility] Last Admin: 07/16/17 20:33 Dose: 100 mg Enoxaparin Sodium (Lovenox) 40 mg SC DAILY [facility] PRN Reason: Protocol Last Admin: 07/15/17 15:45 Dose: 40 mg Famotidine (Pepcid) 20 mg PO BID [facility] Cefazolin Sodium/Dextrose (Ancef Iv 1 Gm Duplex) 1 gm in 50 mls @ 50 mls/hr IVPB Q12 [facility] PRN Reason: Protocol Last Admin: 07/16/17 20:33 Dose: 50 mls/hr Lactated Ringer's (Lactated Ringer's) 1,000 mls @ 150 mls/hr IV .Q6H40M [facility] Stop: 07/19/17 08:31 Ketorolac Tromethamine (Toradol) 15 mg IVP Q8 [facility] Lisinopril (Zestril) 40 mg PO DAILY [facility] Oxycodone HCl (Oxycontin Extended Release Tab) 20 mg PO Q12 [facility] Stop: 07/28/17 23:59 Last Admin: 07/14/17 20:56 Dose: 20 mg Oxycodone/Acetaminophen (Percocet 5/325 Mg Tab) 1 tab PO Q4 PRN PRN Reason: pain4-6 Stop: 07/17/17 13:33 Tamsulosin HCl (Flomax) 0.4 mg PO DAILY [facility] - Labs Labs: 07/17/17 04:50 07/17/17 04:50
--- NOTE | 2017-07-17 10:08 | CP.PCM.PN ---
<Delfino Conner - Last Filed: 07/17/17 15:26> Subjective - Date & Time of Evaluation Date of Evaluation: 07/17/17 Time of Evaluation: 15:11 - Subjective Subjective: Patient seen with attending. Patient is more arousable today, asking questions. BP has improved. Remains on high flow oxygen, will get chest CT today since he continues to desaturate on room air. Patient is eating, tolerating his diet. Abdominal distention improved. PT is on board. Case d/w [facility] and Pulmonary team Objective - Vital Signs/Intake and Output Vital Signs (last 24 hours): Temp Pulse Resp BP Pulse Ox 99.7 F H 81 21 153/75 H 96 07/17/17 08:00 07/17/17 08:00 07/17/17 08:00 07/17/17 08:00 07/17/17 08:00 Intake and Output: 07/17/17 07/17/17 06:59 18:59 Intake Total 510 240 Output Total 501 Balance 9 240 - Medications Medications: Current Medications Acetaminophen (Tylenol 325mg Tab) 325 mg PO Q4 PRN PRN Reason: pain1-3 Acetaminophen (Tylenol 650 Mg Supp) 650 mg [place] Q6 PRN PRN Reason: fever > 100.4 Last Admin: 07/15/17 21:25 Dose: 650 mg Atorvastatin Calcium (Lipitor) 40 mg PO DAILY [facility] Last Admin: 07/17/17 08:52 Dose: 40 mg Carvedilol (Coreg) 25 mg PO BID [facility] Last Admin: 07/14/17 16:59 Dose: 25 mg Celecoxib (Celebrex) 100 mg PO Q12 [facility] Last Admin: 07/17/17 08:52 Dose: 100 mg Enoxaparin Sodium (Lovenox) 40 mg SC DAILY [facility] PRN Reason: Protocol Last Admin: 07/15/17 15:45 Dose: 40 mg Famotidine (Pepcid) 20 mg PO BID [facility] Last Admin: 07/17/17 08:53 Dose: 20 mg Cefazolin Sodium/Dextrose (Ancef Iv 1 Gm Duplex) 1 gm in 50 mls @ 50 mls/hr IVPB Q12 [facility] PRN Reason: Protocol Last Admin: 07/16/17 20:33 Dose: 50 mls/hr Lactated Ringer's (Lactated Ringer's) 1,000 mls @ 150 mls/hr IV .Q6H40M [facility] Stop: 07/19/17 08:31 Ketorolac Tromethamine (Toradol) 15 mg IVP Q8 [facility] Lisinopril (Zestril) 40 mg PO DAILY [facility] Oxycodone HCl (Oxycontin Extended Release Tab) 20 mg PO Q12 [facility] Stop: 07/28/17 23:59 Last Admin: 07/14/17 20:56 Dose: 20 mg Oxycodone/Acetaminophen (Percocet 5/325 Mg Tab) 1 tab PO Q4 PRN PRN Reason: pain4-6 Stop: 07/17/17 13:33 Tamsulosin HCl (Flomax) 0.4 mg PO DAILY [facility] - Labs Labs: 07/17/17 04:50 07/17/17 04:50 - Constitutional Appears: Other (tired, weak) - Head Exam Head Exam: NORMAL INSPECTION - ENT Exam ENT Exam: Mucous Membranes Moist - Respiratory Exam Respiratory Exam: Clear to Ausculation Bilateral (anteriorly). absent: Accessory Muscle Use, Chest Wall Tenderness, Decreased Breath Sounds, Respiratory Distress Additional comments: on high flow oxygen - Cardiovascular Exam Cardiovascular Exam: REGULAR RHYTHM, +S1, +S2. absent: Bradycardia, Tachycardia - GI/Abdominal Exam GI & Abdominal Exam: Soft, Normal Bowel Sounds. absent: Distended, Guarding, Tenderness - Extremities Exam Extremities Exam: Normal Inspection Additional comments: right legt in yordy bandage, elevated with pillows - Neurological Exam Neurological Exam: Awake, CN II-XII Intact - Skin Skin Exam: Dry, Intact, Pallor Assessment and Plan - Assessment and Plan (Free Text) Assessment: POD#3 66 year old male s/p R total knee replacement, with acute decompensation now with hypotension, respiratory insufficiency LIYAH and altered mental status. PAtient is more alert today, neurology saw and evaluated the patient. Patient had CT chest today. Awaiting final report LIYAH RESOLVED. All available labs and imaging reviewed. Worsening of anemia, persistent thrombocytopenia, LIYAH has resolved. Cultures pending REstarted lovenox, patient has sana stocking/scds. heparin ab pending. Cardiology consult (Dr. Gaston) and pulmonology consult (Dr. Levin) appreciated #Hypotension-resolved #Altered Mental Status- improving #LIYAH-resolved #Anemia, acute likely due to blood loss vs dilutional #Thrombocytopenia-stable #DVT PPX -follow echo report -follow MRI report -BP has improved, remains normotensive off medications. Will hold medications for now. -blood and urine cultures NGTD -culture of knee: gram neg tonny, coag neg staph-continue ancef -continue to monitor anemia, thrombocytopenia closely. case d/w Dr. Sanford <Nathaniel Sanford - Last Filed: 07/24/17 14:37> Subjective - Subjective Subjective: Patient seen and examined with the FP Resident. Agree with assessment and plan. Objective - Vital Signs/Intake and Output Vital Signs (last 24 hours): Temp Pulse Resp BP Pulse Ox 97.4 F L 61 18 102/58 L 94 L 07/23/17 15:00 07/23/17 15:00 07/23/17 15:00 07/23/17 15:00 07/23/17 15:00 - Labs Labs: 07/22/17 06:05 07/22/17 06:05 Assessment and Plan (1) Hypoxemia Status: Acute (2) Hypertension Status: Acute (3) CHF (congestive heart failure) Status: Acute (4) Anemia Status: Acute (5) Altered mental status Status: Acute (6) Sleep apnea Status: Acute
[2017-07-17] MEDS: Enoxaparin 40 mg Syringe SC SCH (10:50)
[2017-07-17] MEDS: ceFAZolin IV 1 gm in Dextrose 1 GM/50 ML BAG IVPB SCH ×2 (12:00→20:30)
[2017-07-17] MEDS: Lactated Ringer's 1,000 ML IV SCH ×2 (12:23→19:48)
[2017-07-17] MEDS ORDERED: Iodixanol 320 MG/ML 100 ML BOTTLE IV ONE (14:42)
[2017-07-17] MEDS ORDERED: Sodium Chloride 0.9% 50 ML IV ONE (14:43)
--- NOTE | 2017-07-17 16:07 | CT ---
PROCEDURE: CT Chest with contrast (Pulmonary Angiogram) HISTORY: r/o PTE COMPARISON: None available. TECHNIQUE: Axial computed tomography images were obtained of the chest in the pulmonary arterial phase of enhancement. Coronal and sagittal reformatted images were created and reviewed. Maximum intensity projection (MIP) reconstructed images in the following planes: Intravenous contrast dose: 95 cc Visipaque 3 Mean Hounsfield unit values in the main pulmonary artery: 237.14 Radiation dose: Total exam DLP = 431.56 mGy-cm. This CT exam was performed using one or more of the following dose reduction techniques: Automated exposure control, adjustment of the mA and/or kV according to patient size, and/or use of iterative reconstruction technique. FINDINGS: PULMONARY ARTERIES: Unremarkable. No pulmonary embolism. AORTA: No acute findings. No thoracic aortic aneurysm. LUNGS: Dependent, subsegmental atelectasis at the lung bases. PLEURAL SPACES: Unremarkable. No effusion or pneuomothorax. HEART: Unremarkable. No cardiomegaly. No significant pericardial effusion. LYMPH NODES: No lymphadenopathy. BONES, CHEST WALL: Unremarkable. No fracture or destructive lesion OTHER FINDINGS: Cholelithiasis without CT evidence of acute cholecystitis. IMPRESSION: Unremarkable CT pulmonary angiogram. No pulmonary embolus. Additional benign and/or incidental findings described above.
--- NOTE | 2017-07-17 16:23 | CP.PCM.PN ---
Subjective - Date & Time of Evaluation Date of Evaluation: 07/17/17 Time of Evaluation: 08:30 - Subjective Subjective: S/P RTKR POD#3 Pt seen and examined at bedside, comfortable in bed on high oxygen flow Events of desaturation noted Pt c/o mild right knee pain Pt denies chest pain, N/V/D, numbness/tingling to RLE Objective - Vital Signs/Intake and Output Vital Signs (last 24 hours): Temp Pulse Resp BP Pulse Ox 99.3 F 96 H 22 154/84 H 96 07/17/17 12:00 07/17/17 14:00 07/17/17 14:00 07/17/17 14:00 07/17/17 14:00 Intake and Output: 07/17/17 07/17/17 06:59 18:59 Intake Total 510 1130 Output Total 501 Balance 9 1130 - Medications Medications: Current Medications Acetaminophen (Tylenol 325mg Tab) 325 mg PO Q4 PRN PRN Reason: pain1-3 Acetaminophen (Tylenol 650 Mg Supp) 650 mg [place] Q6 PRN PRN Reason: fever > 100.4 Last Admin: 07/15/17 21:25 Dose: 650 mg Atorvastatin Calcium (Lipitor) 40 mg PO DAILY [facility] Last Admin: 07/17/17 08:52 Dose: 40 mg Carvedilol (Coreg) 25 mg PO BID [facility] Last Admin: 07/14/17 16:59 Dose: 25 mg Celecoxib (Celebrex) 100 mg PO Q12 [facility] Last Admin: 07/17/17 08:52 Dose: 100 mg Enoxaparin Sodium (Lovenox) 40 mg SC DAILY [facility] PRN Reason: Protocol Last Admin: 07/17/17 10:50 Dose: 40 mg Famotidine (Pepcid) 20 mg PO BID [facility] Last Admin: 07/17/17 08:53 Dose: 20 mg Cefazolin Sodium/Dextrose (Ancef Iv 1 Gm Duplex) 1 gm in 50 mls @ 50 mls/hr IVPB Q12 [facility] PRN Reason: Protocol Last Admin: 07/17/17 12:00 Dose: 50 mls/hr Lactated Ringer's (Lactated Ringer's) 1,000 mls @ 150 mls/hr IV .Q6H40M [facility] Stop: 07/19/17 08:31 Last Admin: 07/17/17 12:23 Dose: 150 mls/hr Ketorolac Tromethamine (Toradol) 15 mg IVP Q8 [facility] Lisinopril (Zestril) 40 mg PO DAILY [facility] Oxycodone HCl (Oxycontin Extended Release Tab) 20 mg PO Q12 [facility] Stop: 07/28/17 23:59 Last Admin: 07/14/17 20:56 Dose: 20 mg Tamsulosin HCl (Flomax) 0.4 mg PO DAILY [facility] - Labs Labs: 07/17/17 04:50 07/17/17 04:50 - Constitutional Appears: No Acute Distress - Respiratory Exam Respiratory Exam: Clear to Ausculation Bilateral, NORMAL BREATHING PATTERN - Cardiovascular Exam Cardiovascular Exam: REGULAR RHYTHM, RRR - Extremities Exam Additional comments: RLE: Knee dressing C/D/I Calves and nontender b/l N/V intact distally Distal pulses wnl No foot drop Assessment and Plan - Assessment and Plan (Free Text) Assessment: 66 yo M s/p RTKR POD#3 with desaturation, currently on high flow oxygen Plan: F/U Ct chest results to r/o PE Venous US LE results reviewed- negative for DVT Pain Control DVT ppx- continue lovenox SCD b/l LE F/U labs RLE compression dressing can be removed today Cardiac and respiratory consults appreciated Continue current management as per primary team
--- NOTE | 2017-07-17 18:17 | CP.PCM.PN ---
Subjective - Date & Time of Evaluation Date of Evaluation: 07/17/17 Time of Evaluation: 18:00 - Subjective Subjective: no new complaints. patietn is s/p CT angiogram Objective - Vital Signs/Intake and Output Vital Signs (last 24 hours): Temp Pulse Resp BP Pulse Ox 99.4 F 72 20 160/78 H 97 07/17/17 16:00 07/17/17 18:00 07/17/17 18:00 07/17/17 18:00 07/17/17 18:00 Intake and Output: 07/17/17 07/17/17 06:59 18:59 Intake Total 510 1550 Output Total 501 500 Balance 9 1050 - Medications Medications: Current Medications Acetaminophen (Tylenol 325mg Tab) 325 mg PO Q4 PRN PRN Reason: pain1-3 Acetaminophen (Tylenol 650 Mg Supp) 650 mg [place] Q6 PRN PRN Reason: fever > 100.4 Last Admin: 07/15/17 21:25 Dose: 650 mg Atorvastatin Calcium (Lipitor) 40 mg PO DAILY [facility] Last Admin: 07/17/17 08:52 Dose: 40 mg Carvedilol (Coreg) 25 mg PO BID [facility] Last Admin: 07/14/17 16:59 Dose: 25 mg Celecoxib (Celebrex) 100 mg PO Q12 [facility] Last Admin: 07/17/17 08:52 Dose: 100 mg Enoxaparin Sodium (Lovenox) 40 mg SC DAILY [facility] PRN Reason: Protocol Last Admin: 07/17/17 10:50 Dose: 40 mg Famotidine (Pepcid) 20 mg PO BID [facility] Last Admin: 07/17/17 16:37 Dose: 20 mg Cefazolin Sodium/Dextrose (Ancef Iv 1 Gm Duplex) 1 gm in 50 mls @ 50 mls/hr IVPB Q12 [facility] PRN Reason: Protocol Last Admin: 07/17/17 12:00 Dose: 50 mls/hr Lactated Ringer's (Lactated Ringer's) 1,000 mls @ 150 mls/hr IV .Q6H40M [facility] Stop: 07/19/17 08:31 Last Admin: 07/17/17 12:23 Dose: 150 mls/hr Ketorolac Tromethamine (Toradol) 15 mg IVP Q8 [facility] Lisinopril (Zestril) 40 mg PO DAILY [facility] Oxycodone HCl (Oxycontin Extended Release Tab) 20 mg PO Q12 [facility] Stop: 07/28/17 23:59 Last Admin: 07/14/17 20:56 Dose: 20 mg Tamsulosin HCl (Flomax) 0.4 mg PO DAILY [facility] - Labs Labs: 07/17/17 04:50 07/17/17 04:50 - Constitutional Appears: Chronically Ill - Head Exam Head Exam: NORMAL INSPECTION - Eye Exam Eye Exam: Periorbital tenderness - ENT Exam ENT Exam: Mucous Membranes Moist - Neck Exam Neck Exam: Full ROM - Respiratory Exam Respiratory Exam: Decreased Breath Sounds - Cardiovascular Exam Cardiovascular Exam: REGULAR RHYTHM - GI/Abdominal Exam GI & Abdominal Exam: Normal Bowel Sounds - Rectal Exam Rectal Exam: Deferred - Extremities Exam Extremities Exam: Pedal Edema - Back Exam Back Exam: vertebral tenderness - Neurological Exam Neurological Exam: Alert - Psychiatric Exam Psychiatric exam: Normal Affect - Skin Skin Exam: Normal Color Assessment and Plan (1) Hypotension Assessment & Plan: resolved Status: Acute (2) CHF (congestive heart failure) Assessment & Plan: Echo reveals normal left vetnricular function. medical management. does no t appear to be in CHF. Status: Acute
[2017-07-18] MEDS: Lactated Ringer's 1,000 ML IV SCH ×2 (03:00→12:09)
[2017-07-18 06:21] LABS: BASO % 0.6 % (0.0-2.0); EOS # 0.6 K/uL (0.0-0.7); EOS % 6.7 % (0.0-4.0); HEMATOCRIT 23.8 % (35.0-51.0); LYMPH # 1.2 K/uL (1.0-4.3); LYMPH % 13.8 % (20.0-40.0); MEAN CORPUSCULAR HEMOGLOBIN 29.3 pg (27.0-31.0); MEAN PLATELET VOLUME 9.1 fl (7.2-11.7); MONO # 0.9 K/uL (0.0-0.8); MONO % 10.9 % (0.0-10.0); NEUT # 5.7 K/uL (1.8-7.0); NRBC % 0.1 % (0.0-0.0); RED CELL DISTRIBUTION WIDTH 13.2 % (11.5-14.5); WHITE BLOOD COUNT 8.4 K/uL (4.8-10.8)
[2017-07-18 06:31] LABS: ALB/GLOB RATIO 1.1 (1.0-2.1); ALKALINE PHOSPHATASE 80 U/L (38-126); ALT/SGPT 54 U/L (21-72); AST/SGOT 59 U/L (17-59); BLOOD UREA NITROGEN 24 mg/dl (9-20); CALCIUM 7.6 mg/dL (8.4-10.2); CARBON DIOXIDE 25 mmol/L (22-30); CHLORIDE 111 mmol/L (98-107); GFR AFRICAN-AMERICAN > 60; GLUCOSE,RANDOM 100 mg/dL (75-110); POTASSIUM 3.7 MMOL/L (3.6-5.0); SODIUM 146 mmol/l (132-148); TOTAL PROTEIN 5.4 G/DL (6.3-8.2)
[2017-07-18] MEDS: Enoxaparin 40 mg Syringe SC SCH (09:57)
[2017-07-18] MEDS: ceFAZolin IV 1 gm in Dextrose 1 GM/50 ML BAG IVPB SCH ×2 (10:00→21:05)
[2017-07-18] MEDS: Multivitamin With Minerals Tab PO SCH (14:00)
[2017-07-18 14:18] LABS: HEPARIN-IND PLATELET AB Negative (Negative)
--- NOTE | 2017-07-18 21:48 | PN ---
DATE: 07/18/2017 LOCATION: The patient in ICU, bed 424. TIME SPENT: 35 minutes. SUBJECTIVE: The patient is seen and examined at the bedside. Events since admission reviewed. Past medical, surgical and social history noted. Overnight, uneventful, improved blood pressure. Telemetry, sinus rhythm. No respiratory distress. CT angio negative for central pulmonary embolism. MRI negative for any acute pathology. This morning alert, awake, improved mental status, able to follow simple commands. No distress noted. Denies headache, shortness of breath, chest pain, palpitation. No abdominal pain, diarrhea, or dysuria. Pain on the right knee, [id number]. PHYSICAL EXAMINATION: VITAL SIGNS: Temperature 97.8, T-max 99.4, heart rate 73 regular, blood pressure 141-150 over 76-105, respiratory rate 19-24 thoracoabdominal, saturation 100% on high-flow 20 L. Intake 3330, output 1220, positive balance 2110, had bowel movement. HEAD, EYES, EARS, NOSE AND THROAT: Pupils reactive. Conjunctivae pale. Sclerae white. NECK: Supple. Trachea is central. CHEST: Bilateral breath sounds clear to auscultation. HEART: Rhythm regular. S1, S2 normal intensity. No S3, S4 gallop. No audible murmur. ABDOMEN: Bowel sounds are present x4 quadrants. Mild distention. No tenderness. EXTREMITIES: Minimal edema. Right knee, no fluctuation. DP palpable, no palpable cord. NEUROLOGIC: Nonfocal. LABORATORY DATA: WBC 8.4, hemoglobin 7.8, hematocrit 23.8, platelet count 135. Neutrophils 68, lymphocytes 13.8, monocytes 10.9, eosinophils 6.7. D-dimer 12,186. ABG, pH 7.42, pCO2 of 37, pO2 of 52, oxygen saturation 93% on FiO2 30%, 3 L. SMA-7, sodium 146, potassium 3.7, chloride of 111, CO2 of 25, blood urea nitrogen 24, creatinine 0.8, glucose 100, calcium 7.6, total bilirubin 1, AST 59, ALT 54, alkaline phosphatase 80. Troponin 0.15 and 0.11, total protein 5.4, and albumin 2.8. Urine analysis, leuko esterase negative, RBC 3, microscopic synovial fluid wbc 15, rbc 55,444, neutrophils 5, lymphocytes 8, monocytes 7, synovial fluid light red blood. Microbiology, wound culture right knee, E. coli coagulase-negative staphylococcus. IMPRESSION: 1. Neurologic: Septic hypoxic encephalopathy, improving. MRI negative for any acute pathology. 2. Pulmonary: Hypoxic respiratory insufficiency, negative for pulmonary embolism. Continue incentive spirometry on high-flow nasal oxygen, saturating well. 3. Cardiac: No acute issues noted. Seen by Cardiology. Appreciate recommendations. 4. Gastrointestinal: No acute issues. Continue GI prophylaxis. 5. Renal: Prerenal azotemia, resolved. No acute electrolyte abnormalities, hypoalbuminemia secondary to poor nutritional intake. Encourage p.o. intake. 6. Hematology. Anemia secondary to acute blood loss. Closely monitor hemoglobin. Consider transfusion if further drop in hemoglobin noted, would benefit from Venofer daily and add multivitamin tablet daily. 7. Food, electrolytes, and nutrition: Continue Ringer's lactate at 150 mL per hour. History of hypertension, currently antihypertensive medications on hold secondary to hypotension, resolving on IV hydration. 8. Infectious disease: Wound culture positive for Escherichia coli status post cefazolin 1 g IV q. 12. 9. Continue deep venous thrombosis and gastrointestinal prophylaxis, analgesics as needed, history of benign prostatic hypertrophy on Flomax 0.4 mg daily. Ariel Jones MD
[2017-07-18] MEDS ORDERED: Lactated Ringer's 1,000 ML IV SCH (22:20)
[2017-07-19 06:47] LABS: HEMATOCRIT 25.3 % (35.0-51.0); MEAN CELL VOLUME 88.7 fl (80.0-94.0); MEAN CORPUSCULAR HEMOGLOBIN 29.3 pg (27.0-31.0); RED CELL DISTRIBUTION WIDTH 13.5 % (11.5-14.5); WHITE BLOOD COUNT 7.4 K/uL (4.8-10.8)
[2017-07-19 06:58] LABS: ALKALINE PHOSPHATASE 96 U/L (38-126); ALT/SGPT 54 U/L (21-72); AST/SGOT 57 U/L (17-59); BILIRUBIN,TOTAL 1.2 mg/dl (0.2-1.3); BLOOD UREA NITROGEN 16 mg/dl (9-20); CALCIUM 8.3 mg/dL (8.4-10.2); CARBON DIOXIDE 27 mmol/L (22-30); CHLORIDE 108 mmol/L (98-107); GFR AFRICAN-AMERICAN > 60; GLUCOSE,RANDOM 92 mg/dL (75-110); POTASSIUM 3.6 MMOL/L (3.6-5.0); SODIUM 144 mmol/l (132-148); TOTAL PROTEIN 5.9 G/DL (6.3-8.2)
[2017-07-19] MEDS: ceFAZolin IV 1 gm in Dextrose 1 GM/50 ML BAG IVPB SCH ×2 (09:12→21:26)
[2017-07-19] MEDS: Enoxaparin 40 mg Syringe SC SCH (09:13)
[2017-07-19] MEDS: Multivitamin With Minerals Tab PO SCH (09:14)
--- NOTE | 2017-07-19 16:00 | CP.PCM.PN ---
Subjective - Date & Time of Evaluation Date of Evaluation: 07/18/17 Time of Evaluation: 10:00 - Subjective Subjective: Patient is doing very well. Noted to have good ox saturation Much more awake but still sleeps a lot. Has no fever. Noted elevated BP. Objective - Vital Signs/Intake and Output Vital Signs (last 24 hours): Temp Pulse Resp BP Pulse Ox 98.8 F 69 16 173/89 H 96 07/19/17 12:00 07/19/17 12:00 07/19/17 12:00 07/19/17 12:00 07/19/17 12:00 Intake and Output: 07/19/17 07/19/17 06:59 18:59 Intake Total 1112 Output Total 900 Balance 212 - Medications Medications: Current Medications Acetaminophen (Tylenol 325mg Tab) 325 mg PO Q4 PRN PRN Reason: pain1-3 Acetaminophen (Tylenol 650 Mg Supp) 650 mg [place] Q6 PRN PRN Reason: fever > 100.4 Last Admin: 07/15/17 21:25 Dose: 650 mg Atorvastatin Calcium (Lipitor) 40 mg PO DAILY [facility] Last Admin: 07/19/17 09:13 Dose: 40 mg Carvedilol (Coreg) 25 mg PO BID [facility] Last Admin: 07/14/17 16:59 Dose: 25 mg Carvedilol (Coreg) 25 mg PO Q12 [facility] Celecoxib (Celebrex) 100 mg PO Q12 [facility] Last Admin: 07/19/17 09:12 Dose: 100 mg Enoxaparin Sodium (Lovenox) 40 mg SC DAILY [facility] PRN Reason: Protocol Last Admin: 07/19/17 09:13 Dose: 40 mg Famotidine (Pepcid) 20 mg PO BID [facility] Last Admin: 07/19/17 09:13 Dose: 20 mg Cefazolin Sodium/Dextrose (Ancef Iv 1 Gm Duplex) 1 gm in 50 mls @ 50 mls/hr IVPB Q12 [facility] PRN Reason: Protocol Last Admin: 07/19/17 09:12 Dose: 50 mls/hr Iron Sucrose 100 mg/ Sodium (Chloride) 105 mls @ 105 mls/hr IVPB DAILY [facility] Last Admin: 07/19/17 09:14 Dose: 105 mls/hr Ketorolac Tromethamine (Toradol) 15 mg IM Q8 [facility] Lisinopril (Zestril) 40 mg PO DAILY [facility] Multivitamins/Minerals (Therapeutic-M Tab) 1 tab PO DAILY [facility] Last Admin: 07/19/17 09:14 Dose: 1 tab Oxycodone HCl (Oxycontin Extended Release Tab) 20 mg PO Q12 [facility] Stop: 07/28/17 23:59 Last Admin: 07/14/17 20:56 Dose: 20 mg Tamsulosin HCl (Flomax) 0.4 mg PO DAILY [facility] - Labs Labs: 07/19/17 05:30 07/19/17 05:30 - Head Exam Head Exam: NORMAL INSPECTION - Eye Exam Eye Exam: Normal appearance - ENT Exam ENT Exam: Mucous Membranes Moist - Respiratory Exam Respiratory Exam: Clear to Ausculation Bilateral - Cardiovascular Exam Cardiovascular Exam: REGULAR RHYTHM - GI/Abdominal Exam GI & Abdominal Exam: Normal Bowel Sounds - Neurological Exam Neurological Exam: Awake, Oriented x3 - Psychiatric Exam Psychiatric exam: Normal Mood Assessment and Plan (1) Hypoxemia Status: Acute (2) Hypertension Status: Acute (3) CHF (congestive heart failure) Status: Acute (4) Anemia Status: Acute (5) Altered mental status Status: Acute - Assessment and Plan (Free Text) Plan: Cont meds monitor cbc recheck BP and add meds PT eval.
--- NOTE | 2017-07-19 16:03 | CP.PCM.PN ---
Subjective - Date & Time of Evaluation Date of Evaluation: 07/19/17 Time of Evaluation: 16:02 - Subjective Subjective: Much more awake and tolerates 3 liter by nc oxygen Has no chest pain or SOB Has good appetite. Objective - Vital Signs/Intake and Output Vital Signs (last 24 hours): Temp Pulse Resp BP Pulse Ox 98.8 F 69 16 173/89 H 96 07/19/17 12:00 07/19/17 12:00 07/19/17 12:00 07/19/17 12:00 07/19/17 12:00 Intake and Output: 07/19/17 07/19/17 06:59 18:59 Intake Total 1112 Output Total 900 Balance 212 - Medications Medications: Current Medications Acetaminophen (Tylenol 325mg Tab) 325 mg PO Q4 PRN PRN Reason: pain1-3 Acetaminophen (Tylenol 650 Mg Supp) 650 mg [place] Q6 PRN PRN Reason: fever > 100.4 Last Admin: 07/15/17 21:25 Dose: 650 mg Atorvastatin Calcium (Lipitor) 40 mg PO DAILY [facility] Last Admin: 07/19/17 09:13 Dose: 40 mg Carvedilol (Coreg) 25 mg PO BID [facility] Last Admin: 07/14/17 16:59 Dose: 25 mg Carvedilol (Coreg) 25 mg PO Q12 [facility] Celecoxib (Celebrex) 100 mg PO Q12 [facility] Last Admin: 07/19/17 09:12 Dose: 100 mg Enoxaparin Sodium (Lovenox) 40 mg SC DAILY [facility] PRN Reason: Protocol Last Admin: 07/19/17 09:13 Dose: 40 mg Famotidine (Pepcid) 20 mg PO BID [facility] Last Admin: 07/19/17 09:13 Dose: 20 mg Cefazolin Sodium/Dextrose (Ancef Iv 1 Gm Duplex) 1 gm in 50 mls @ 50 mls/hr IVPB Q12 [facility] PRN Reason: Protocol Last Admin: 07/19/17 09:12 Dose: 50 mls/hr Iron Sucrose 100 mg/ Sodium (Chloride) 105 mls @ 105 mls/hr IVPB DAILY [facility] Last Admin: 07/19/17 09:14 Dose: 105 mls/hr Ketorolac Tromethamine (Toradol) 15 mg IM Q8 [facility] Lisinopril (Zestril) 40 mg PO DAILY [facility] Multivitamins/Minerals (Therapeutic-M Tab) 1 tab PO DAILY [facility] Last Admin: 07/19/17 09:14 Dose: 1 tab Oxycodone HCl (Oxycontin Extended Release Tab) 20 mg PO Q12 [facility] Stop: 07/28/17 23:59 Last Admin: 07/14/17 20:56 Dose: 20 mg Tamsulosin HCl (Flomax) 0.4 mg PO DAILY [facility] - Labs Labs: 07/19/17 05:30 07/19/17 05:30 - Head Exam Head Exam: NORMAL INSPECTION - Eye Exam Eye Exam: Normal appearance - ENT Exam ENT Exam: Mucous Membranes Moist - Respiratory Exam Respiratory Exam: Clear to Ausculation Bilateral - Cardiovascular Exam Cardiovascular Exam: REGULAR RHYTHM - GI/Abdominal Exam GI & Abdominal Exam: Normal Bowel Sounds - Neurological Exam Neurological Exam: Awake, Oriented x3 Assessment and Plan (1) Hypoxemia Status: Acute (2) Hypertension Status: Acute (3) CHF (congestive heart failure) Status: Acute (4) Anemia Status: Acute (5) Altered mental status Status: Acute - Assessment and Plan (Free Text) Plan: Cont meds cont tx start PT eval transfer to [address] [place] [address] in am add BP meds.
--- NOTE | 2017-07-20 02:31 | PN ---
DATE: 07/19/2017 LOCATION: Patient in ICU, bed 424. TIME SPENT: 35 minutes. The patient is seen and examined at the bedside. Events since admission reviewed. Past medical, surgical and social history noted. SUBJECTIVE: Overnight eventful. Normotensive. Telemetry, sinus rhythm. No respiratory distress noted. CT angio negative for central pulmonary embolism. MRI negative for acute pathology. On BiPAP at 25 L at night. This morning, alert and awake, follows commands, appropriate. High nasal flow discontinued, put on 4 L oxygen, saturating over 94%, remains some wakeful. PHYSICAL EXAMINATIONS: VITAL SIGNS: Temperature 98.8, heart rate 69, blood pressure 173/89, respiratory rate 16, oxygen saturation 96%, intake 1112, output 1750, negative balance 638. HEAD, EYES, EARS, NOSE AND THROAT: Pupils are reactive. Conjunctivae pale. Sclerae anicteric. NECK: Supple. Trachea central. CHEST: Bilateral breath sounds, clear to auscultation. HEART: Rhythm regular. S1, S2 normal intensity. No S3, S4 or gallop. No audible murmur. ABDOMEN: Bowel sounds present. Soft. No distention. No tenderness. EXTREMITIES: Minimal edema. Right knee with mild fluctuation. DP palpable, no palpable cord. NEUROLOGIC: Nonfocal. LABORATORY DATA: WBC 7.4, hemoglobin 8.4, hematocrit 25.3, platelet count of 164. SMA-7, sodium 144, potassium 3.6, chloride 108, CO2 of 27, blood urea nitrogen 16, creatinine 0.8, total bilirubin 1.2, AST 57, ALT 54, alkaline phosphatase 96, total protein 5.9, albumin 3. Urinalysis negative. Synovial fluid, neutrophils 5, lymphocytes 18, WBC 15, RBC 5544. Immunology, heparin-induced platelet antibody negative. IMPRESSION: 1. Neurologic: Septic hypoxic encephalopathy, improved. MRI negative for acute pathology. 2. Pulmonary: Hypoxic respiratory insufficiency. Negative for pulmonary embolism, continue incentive spirometry, trial of 3 L nasal cannula, maintain saturation of 44, follow with CO2 retention. 3. Cardiac: No acute issues. Seen by cardiology. Appreciate recommendations. 4. Gastrointestinal: No acute issues, on gastrointestinal prophylaxis. 5. Renal: Prerenal azotemia, resolved. No acute electrolyte abnormalities. Hypoalbuminemia secondary to poor nutritional intake, encouraged p.o. intake. 6. Hematology. Anemia secondary to acute blood loss. Closely monitor hemoglobin. Consider transfusion if further drop in the hemoglobin. Would benefit from Venofer daily, and add multivitamin tablet. 7. Food, electrolytes and nutrition. Continue Ringer's lactate at 40 mL per hour. 8. Infectious disease: Wound care, wound culture positive for Escherichia coli and on cefazolin 1 g IV q. 12. 9. Deep venous thrombosis prophylaxis and gastrointestinal prophylaxis. 10. Analgesics as needed. 11. History of benign prostatic hypertrophy, on Flomax 0.4 mg daily. Ariel Jones MD
[2017-07-20 05:05] LABS: BASO # 0.1 K/uL (0.0-0.2); BASO % 0.6 % (0.0-2.0); EOS # 0.5 K/uL (0.0-0.7); EOS % 6.2 % (0.0-4.0); HEMATOCRIT 25.8 % (35.0-51.0); LYMPH # 1.2 K/uL (1.0-4.3); LYMPH % 14.3 % (20.0-40.0); MEAN CELL VOLUME 88.8 fl (80.0-94.0); MEAN CORPUSCULAR HEMOGLOBIN 28.7 pg (27.0-31.0); MEAN CORPUSCULAR HGB CONC 32.3 g/dL (33.0-37.0); MEAN PLATELET VOLUME 8.8 fl (7.2-11.7); MONO # 0.9 K/uL (0.0-0.8); MONO % 10.6 % (0.0-10.0); NEUT # 5.9 K/uL (1.8-7.0); NEUT % 68.3 % (50.0-75.0); NRBC % 0.3 % (0.0-0.0); RED CELL DISTRIBUTION WIDTH 13.4 % (11.5-14.5); WHITE BLOOD COUNT 8.6 K/uL (4.8-10.8)
[2017-07-20 05:24] LABS: ALKALINE PHOSPHATASE 91 U/L (38-126); ALT/SGPT 54 U/L (21-72); AST/SGOT 63 U/L (17-59); BILIRUBIN,TOTAL 1.3 mg/dl (0.2-1.3); BLOOD UREA NITROGEN 17 mg/dl (9-20); CALCIUM 8.4 mg/dL (8.4-10.2); CARBON DIOXIDE 28 mmol/L (22-30); CHLORIDE 107 mmol/L (98-107); GFR AFRICAN-AMERICAN > 60; GLUCOSE,RANDOM 108 mg/dL (75-110); POTASSIUM 3.6 MMOL/L (3.6-5.0); SODIUM 142 mmol/l (132-148); TOTAL PROTEIN 5.7 G/DL (6.3-8.2)
--- NOTE | 2017-07-20 09:13 | CP.PCM.PN ---
Subjective - Date & Time of Evaluation Date of Evaluation: 07/20/17 Time of Evaluation: 09:02 - Subjective Subjective: Interim events and EMR entries reviewed. Awake and cooperative. Answers appropriately. Follows commands. Offers no complaints of SOB or cough. SpO2 99% on 4LPM nasal canula. Has remained afebrile and normotensive. No leukocytosis or thrombocytopenia. Neck is supple and trachea is midline. No dullness on percussion or subcut emphysema over anterior chest wall. Breath sounds are present bilaterally, equally. Few dependant dry rales posteriorly, no wheezes or bronchial breath sounds. Breath sounds are diminished posteriorly. Heart sounds are distant, rhythm is regular, systolic murmur at the base. Doing quite well from a respiratory standpoint.] No further intervention contemplated at this time. He may be transferred out of ICU from a pulmonary point of view. Objective - Vital Signs/Intake and Output Vital Signs (last 24 hours): Temp Pulse Resp BP Pulse Ox 98.0 F 62 20 135/70 99 07/20/17 08:00 07/20/17 08:00 07/20/17 08:00 07/20/17 08:00 07/20/17 08:00 Intake and Output: 07/19/17 07/20/17 23:59 11:59 Intake Total 220 Output Total 800 Balance -580 - Medications Medications: Current Medications Acetaminophen (Tylenol 325mg Tab) 325 mg PO Q4 PRN PRN Reason: pain1-3 Acetaminophen (Tylenol 650 Mg Supp) 650 mg [place] Q6 PRN PRN Reason: fever > 100.4 Last Admin: 07/15/17 21:25 Dose: 650 mg Amlodipine Besylate (Norvasc) 10 mg PO DAILY [facility] Last Admin: 07/19/17 16:31 Dose: 10 mg Atorvastatin Calcium (Lipitor) 40 mg PO DAILY [facility] Last Admin: 07/19/17 09:13 Dose: 40 mg Carvedilol (Coreg) 25 mg PO Q12 [facility] Last Admin: 07/19/17 21:27 Dose: 25 mg Celecoxib (Celebrex) 100 mg PO Q12 [facility] Last Admin: 07/19/17 21:26 Dose: 100 mg Enoxaparin Sodium (Lovenox) 40 mg SC DAILY [facility] PRN Reason: Protocol Last Admin: 07/19/17 09:13 Dose: 40 mg Famotidine (Pepcid) 20 mg PO BID [facility] Last Admin: 07/19/17 09:13 Dose: 20 mg Cefazolin Sodium/Dextrose (Ancef Iv 1 Gm Duplex) 1 gm in 50 mls @ 50 mls/hr IVPB Q12 [facility] PRN Reason: Protocol Last Admin: 07/19/17 21:26 Dose: 50 mls/hr Iron Sucrose 100 mg/ Sodium (Chloride) 105 mls @ 105 mls/hr IVPB DAILY [facility] Last Admin: 07/19/17 09:14 Dose: 105 mls/hr Ketorolac Tromethamine (Toradol) 15 mg IM Q8 [facility] Lisinopril (Zestril) 40 mg PO DAILY [facility] Multivitamins/Minerals (Therapeutic-M Tab) 1 tab PO DAILY [facility] Last Admin: 07/19/17 09:14 Dose: 1 tab Oxycodone HCl (Oxycontin Extended Release Tab) 20 mg PO Q12 [facility] Stop: 07/28/17 23:59 Last Admin: 07/14/17 20:56 Dose: 20 mg Tamsulosin HCl (Flomax) 0.4 mg PO DAILY [facility] - Labs Labs: 07/20/17 04:20 07/20/17 04:20
[2017-07-20] MEDS: ceFAZolin IV 1 gm in Dextrose 1 GM/50 ML BAG IVPB SCH ×2 (09:31→21:50)
[2017-07-20] MEDS: Multivitamin With Minerals Tab PO SCH (09:32)
[2017-07-20] MEDS: Enoxaparin 40 mg Syringe SC SCH (09:33)
--- NOTE | 2017-07-20 09:42 | CP.CCUPN ---
CCU Subjective - Physician Review Subjective (Free Text): 07/20/17 12:23 The patient was Seen/interviewed and examined by me at the bedside during ICU round, Medical records reviewed and Management issues were discussed and formulated with the house staff. This morning he feels well and is hemodynamically stable, denies any chest pain or SOB and the plan is to transfer out of the ICU. Clinically improving, No Vasopressors Awake, comfortable, NAD CCU Objective - Vital Signs / Intake & Output Vital Signs (Last 4 hours): Vital Signs Temp Pulse Resp BP Pulse Ox 07/20/17 09:34 65 135/70 07/20/17 08:00 98.0 F 62 20 135/70 99 07/20/17 06:00 99.4 F 64 17 129/73 98 Intake and Output (Last 8hrs): Intake & Output 07/19/17 07/20/17 07/20/17 22:59 06:59 14:59 Intake Total 220 Output Total 800 Balance -580 Intake: Intake, Piggyback 100 Oral 120 Output: Urine 800 Urethral (Vargas) 800 - Physical Exam Head: Positive for: Normocephalic Pupils: Positive for: PERRL Extroacular Muscles: Positive for: EOMI. Negative for: Gaze Palsy Conjunctiva: Positive for: Normal. Negative for: Icteric Mouth: Positive for: Moist Mucous Membranes Neck: Negative for: JVD Respiratory/Chest: Positive for: Decreased Breath Sounds. Negative for: Accessory Muscle Use, Wheezes Cardiovascular: Positive for: Regular Rate and Rhythm. Negative for: Murmurs, Rub Abdomen: Positive for: Tenderness. Negative for: Distention, Mass/Organomegaly Lower Extremity: Positive for: Edema (LLE) Skin: Positive for: Warm, Dry. Negative for: Rashes Psychiatric: Positive for: Lethargic - Medications Active Medications: Active Medications Generic Name Dose Route Start Last Admin Trade Name Freq PRN Reason Stop Dose Admin Acetaminophen 325 mg 07/14/17 13:32 Tylenol 325mg Tab PO Q4 PRN pain1-3 Acetaminophen 650 mg 07/15/17 21:20 07/15/17 21:25 Tylenol 650 Mg Supp [place] 650 mg Q6 PRN Administration fever > 100.4 Amlodipine Besylate 10 mg 07/19/17 16:15 07/20/17 09:34 Norvasc PO 10 mg DAILY [facility] Administration Atorvastatin Calcium 40 mg 07/15/17 09:00 07/20/17 09:33 Lipitor PO 40 mg DAILY [facility] Administration Carvedilol 25 mg 07/19/17 21:00 07/19/17 21:27 Coreg PO 25 mg Q12 [facility] Administration Celecoxib 100 mg 07/14/17 21:00 07/20/17 09:32 Celebrex PO 100 mg Q12 [facility] Administration Enoxaparin Sodium 40 mg 07/15/17 09:00 07/20/17 09:33 Lovenox SC 40 mg DAILY [facility] Administration Protocol Famotidine 20 mg 07/17/17 09:00 07/20/17 09:33 Pepcid PO 20 mg BID [facility] Administration Cefazolin Sodium/Dextrose 1 gm in 50 mls @ 50 mls/hr 07/16/17 11:15 07/20/17 09:31 Ancef Iv 1 Gm Duplex IVPB 50 mls/hr Q12 [facility] Administration Protocol Iron Sucrose 100 mg/ Sodium 105 mls @ 105 mls/hr 07/18/17 12:45 07/19/17 09: 14 Chloride IVPB 105 mls/hr DAILY [facility] Administration Ketorolac Tromethamine 15 mg 07/17/17 23:55 Toradol IM Q8 [facility] Lisinopril 40 mg 07/15/17 09:00 Zestril PO DAILY [facility] Multivitamins/Minerals 1 tab 07/18/17 12:45 07/20/17 09:32 Therapeutic-M Tab PO 1 tab DAILY [facility] Administration Oxycodone HCl 20 mg 07/14/17 21:00 07/14/17 20:56 Oxycontin Extended Release Tab PO 07/28/17 23:59 20 mg Q12 [facility] Administration Tamsulosin HCl 0.4 mg 07/15/17 09:00 Flomax PO DAILY [facility] - Patient Studies Lab Studies: Microbiology Studies 07/15/17 12:50 Blood Culture - Preliminary Blood-Venous NO GROWTH AFTER 4 DAYS 07/15/17 12:40 Blood Culture - Preliminary Blood-Venous NO GROWTH AFTER 4 DAYS Lab Studies 07/20/17 07/20/17 Range/Units 04:20 04:20 WBC 8.6 (4.8-10.8) K/uL RBC 2.90 L (4.40-5.90) Mil/uL Hgb 8.3 L (12.0-18.0) g/dL Hct 25.8 L (35.0-51.0) % MCV 88.8 (80.0-94.0) fl MCH 28.7 (27.0-31.0) pg MCHC 32.3 L (33.0-37.0) g/dL RDW 13.4 (11.5-14.5) % Plt Count 185 (130-400) K/uL MPV 8.8 (7.2-11.7) fl Neut % (Auto) 68.3 (50.0-75.0) % Lymph % (Auto) 14.3 L (20.0-40.0) % Page % (Auto) 10.6 H (0.0-10.0) % Eos % (Auto) 6.2 H (0.0-4.0) % Baso % (Auto) 0.6 (0.0-2.0) % Neut # 5.9 (1.8-7.0) K/uL Lymph # 1.2 (1.0-4.3) K/uL Page # 0.9 H (0.0-0.8) K/uL Eos # 0.5 (0.0-0.7) K/uL Baso # 0.1 (0.0-0.2) K/uL Sodium 142 (132-148) mmol/l Potassium 3.6 (3.6-5.0) MMOL/L Chloride 107 (98-107) mmol/L Carbon Dioxide 28 (22-30) mmol/L Anion Gap 11 (10-20) BUN 17 (9-20) mg/dl Creatinine 0.8 (0.8-1.5) mg/dL Est GFR ( Amer) > 60 Est GFR (Non-Af Amer) > 60 Random Glucose 108 (75-110) mg/dL Calcium 8.4 (8.4-10.2) mg/dL Total Bilirubin 1.3 (0.2-1.3) mg/dl AST 63 H (17-59) U/L ALT 54 (21-72) U/L Alkaline Phosphatase 91 (38-126) U/L Total Protein 5.7 L (6.3-8.2) G/DL Albumin 2.9 L (3.5-5.0) g/dL Globulin 2.8 (2.2-3.9) gm/dL Albumin/Globulin Ratio 1.0 (1.0-2.1) Laboratory Results - last 24 hr 07/20/17 07/20/17 04:20 04:20 WBC 8.6 RBC 2.90 L Hgb 8.3 L Hct 25.8 L MCV 88.8 MCH 28.7 MCHC 32.3 L RDW 13.4 Plt Count 185 MPV 8.8 Neut % (Auto) 68.3 Lymph % (Auto) 14.3 L Page % (Auto) 10.6 H Eos % (Auto) 6.2 H Baso % (Auto) 0.6 Neut # 5.9 Lymph # 1.2 Page # 0.9 H Eos # 0.5 Baso # 0.1 Sodium 142 Potassium 3.6 Chloride 107 Carbon Dioxide 28 Anion Gap 11 BUN 17 Creatinine 0.8 Est GFR ( Amer) > 60 Est GFR (Non-Af Amer) > 60 Random Glucose 108 Calcium 8.4 Total Bilirubin 1.3 AST 63 H ALT 54 Alkaline Phosphatase 91 Total Protein 5.7 L Albumin 2.9 L Globulin 2.8 Albumin/Globulin Ratio 1.0 Critical Care Progress Note - Nutrition Nutrition: Nutrition Category Date Time Status Dysphagia/Modified Consistency Diet [DIET] Diets 07/16/17 Dinner Active Assessment/Plan (1) Altered mental status Current Visit: Yes Status: Acute (2) Anemia Current Visit: Yes Status: Acute (3) CHF (congestive heart failure) Current Visit: Yes Status: Acute (4) Hypotension Current Visit: Yes Status: Acute (5) Hypoxemia Current Visit: Yes Status: Acute - Assessment and Plan (Free Text) Assessment: - Continue current medications - Stable for transfer out of ICU - DVT prophylaxis: Lovenox - Diet: Dysphagia, modified consistency - Code: Full - Disposition: Floor
--- NOTE | 2017-07-20 11:08 | CP.PCM.PN ---
Subjective - Date & Time of Evaluation Date of Evaluation: 07/20/17 Time of Evaluation: 11:06 - Subjective Subjective: Patient feels a lot better. No chest pain or SOB. Sitted up Objective - Vital Signs/Intake and Output Vital Signs (last 24 hours): Temp Pulse Resp BP Pulse Ox 98.0 F 98 H 20 131/79 99 07/20/17 08:00 07/20/17 10:00 07/20/17 10:00 07/20/17 10:00 07/20/17 10:00 Intake and Output: 07/20/17 07/20/17 06:59 18:59 Intake Total 220 Output Total 800 400 Balance -580 -400 - Medications Medications: Current Medications Acetaminophen (Tylenol 325mg Tab) 325 mg PO Q4 PRN PRN Reason: pain1-3 Acetaminophen (Tylenol 650 Mg Supp) 650 mg [place] Q6 PRN PRN Reason: fever > 100.4 Last Admin: 07/15/17 21:25 Dose: 650 mg Amlodipine Besylate (Norvasc) 10 mg PO DAILY [facility] Last Admin: 07/20/17 09:34 Dose: 10 mg Atorvastatin Calcium (Lipitor) 40 mg PO DAILY [facility] Last Admin: 07/20/17 09:33 Dose: 40 mg Carvedilol (Coreg) 25 mg PO Q12 [facility] Last Admin: 07/19/17 21:27 Dose: 25 mg Celecoxib (Celebrex) 100 mg PO Q12 [facility] Last Admin: 07/20/17 09:32 Dose: 100 mg Enoxaparin Sodium (Lovenox) 40 mg SC DAILY [facility] PRN Reason: Protocol Last Admin: 07/20/17 09:33 Dose: 40 mg Famotidine (Pepcid) 20 mg PO BID [facility] Last Admin: 07/20/17 09:33 Dose: 20 mg Cefazolin Sodium/Dextrose (Ancef Iv 1 Gm Duplex) 1 gm in 50 mls @ 50 mls/hr IVPB Q12 [facility] PRN Reason: Protocol Last Admin: 07/20/17 09:31 Dose: 50 mls/hr Iron Sucrose 100 mg/ Sodium (Chloride) 105 mls @ 105 mls/hr IVPB DAILY [facility] Last Admin: 07/19/17 09:14 Dose: 105 mls/hr Ketorolac Tromethamine (Toradol) 15 mg IM Q8 [facility] Lisinopril (Zestril) 40 mg PO DAILY [facility] Multivitamins/Minerals (Therapeutic-M Tab) 1 tab PO DAILY [facility] Last Admin: 07/20/17 09:32 Dose: 1 tab Oxycodone HCl (Oxycontin Extended Release Tab) 20 mg PO Q12 [facility] Stop: 07/28/17 23:59 Last Admin: 07/14/17 20:56 Dose: 20 mg Tamsulosin HCl (Flomax) 0.4 mg PO DAILY [facility] - Labs Labs: 07/20/17 04:20 07/20/17 04:20 Assessment and Plan (1) Hypoxemia Status: Acute (2) Hypertension Status: Acute (3) CHF (congestive heart failure) Status: Acute (4) Anemia Status: Acute (5) Altered mental status Status: Acute
[2017-07-21] MEDS: ceFAZolin IV 1 gm in Dextrose 1 GM/50 ML BAG IVPB SCH ×2 (08:54→21:14)
[2017-07-21] MEDS: Enoxaparin 40 mg Syringe SC SCH (08:59)
[2017-07-21] MEDS: Multivitamin With Minerals Tab PO SCH (09:00)
--- NOTE | 2017-07-21 10:13 | CP.PCM.PN ---
Subjective - Date & Time of Evaluation Date of Evaluation: 07/21/17 Time of Evaluation: 10:12 - Subjective Subjective: Patient is doing a lot better Still sleeps a lot Recent labs showed low Hgb Otherwise the rest of the exams are within normal. Has no fever Has normal appetite. Discussed with Dr Levin. Objective - Vital Signs/Intake and Output Vital Signs (last 24 hours): Temp Pulse Resp BP Pulse Ox 98.7 F 60 20 123/69 97 07/21/17 07:49 07/21/17 07:49 07/21/17 07:49 07/21/17 08:58 07/21/17 07:49 - Medications Medications: Current Medications Acetaminophen (Tylenol 325mg Tab) 325 mg PO Q4 PRN PRN Reason: pain1-3 Acetaminophen (Tylenol 650 Mg Supp) 650 mg [place] Q6 PRN PRN Reason: fever > 100.4 Last Admin: 07/15/17 21:25 Dose: 650 mg Amlodipine Besylate (Norvasc) 10 mg PO DAILY [facility] Last Admin: 07/21/17 08:59 Dose: 10 mg Atorvastatin Calcium (Lipitor) 40 mg PO DAILY [facility] Last Admin: 07/21/17 08:59 Dose: 40 mg Carvedilol (Coreg) 25 mg PO Q12 [facility] Last Admin: 07/21/17 08:58 Dose: 25 mg Celecoxib (Celebrex) 100 mg PO Q12 [facility] Last Admin: 07/21/17 08:58 Dose: 100 mg Enoxaparin Sodium (Lovenox) 40 mg SC DAILY [facility] PRN Reason: Protocol Last Admin: 07/21/17 08:59 Dose: 40 mg Famotidine (Pepcid) 20 mg PO BID [facility] Last Admin: 07/21/17 08:59 Dose: 20 mg Cefazolin Sodium/Dextrose (Ancef Iv 1 Gm Duplex) 1 gm in 50 mls @ 50 mls/hr IVPB Q12 [facility] PRN Reason: Protocol Last Admin: 07/21/17 08:54 Dose: 50 mls/hr Iron Sucrose 100 mg/ Sodium (Chloride) 105 mls @ 105 mls/hr IVPB DAILY [facility] Last Admin: 07/21/17 09:56 Dose: 105 mls/hr Ketorolac Tromethamine (Toradol) 15 mg IM Q8 [facility] Lisinopril (Zestril) 40 mg PO DAILY [facility] Multivitamins/Minerals (Therapeutic-M Tab) 1 tab PO DAILY [facility] Last Admin: 07/21/17 09:00 Dose: 1 tab Oxycodone HCl (Oxycontin Extended Release Tab) 20 mg PO Q12 [facility] Stop: 07/28/17 23:59 Last Admin: 07/14/17 20:56 Dose: 20 mg Tamsulosin HCl (Flomax) 0.4 mg PO DAILY [facility] - Labs Labs: 07/20/17 04:20 07/20/17 04:20 - Head Exam Head Exam: NORMAL INSPECTION - Eye Exam Eye Exam: Normal appearance - ENT Exam ENT Exam: Mucous Membranes Moist - Respiratory Exam Respiratory Exam: Clear to Ausculation Bilateral - Cardiovascular Exam Cardiovascular Exam: REGULAR RHYTHM - GI/Abdominal Exam GI & Abdominal Exam: Normal Bowel Sounds - Neurological Exam Neurological Exam: Awake, Oriented x3 Assessment and Plan (1) Hypoxemia Status: Acute (2) Hypertension Status: Acute (3) CHF (congestive heart failure) Status: Acute (4) Anemia Status: Acute (5) Altered mental status Status: Acute (6) Sleep apnea Status: Acute - Assessment and Plan (Free Text) Plan: Cont meds Cont tx Cont PT assess for subacute rehab TCU pulse ox continuos at night
--- NOTE | 2017-07-21 11:21 | CP.PCM.PN ---
Addendum entered and electronically signed by Jack Norris MD 07/22/17 07:51: dw Dr. Levin Original Note: Subjective - Date & Time of Evaluation Date of Evaluation: 07/21/17 Time of Evaluation: 10:30 - Subjective Subjective: Patient seen and examined at bedside sleeping well. He was examined while alert and cooperative. Denies overnight events. He remains afebrile and normotensive. SpO2 measured at 95% on RA Trachea midline Non labored breathing; Breath sounds clear bilaterally; no wheezes appreciated. Stable on Pulmonology standpoint Objective - Vital Signs/Intake and Output Vital Signs (last 24 hours): Temp Pulse Resp BP Pulse Ox 98.7 F 60 20 123/69 97 07/21/17 07:49 07/21/17 07:49 07/21/17 07:49 07/21/17 08:58 07/21/17 07:49 - Medications Medications: Current Medications Acetaminophen (Tylenol 325mg Tab) 325 mg PO Q4 PRN PRN Reason: pain1-3 Acetaminophen (Tylenol 650 Mg Supp) 650 mg [place] Q6 PRN PRN Reason: fever > 100.4 Last Admin: 07/15/17 21:25 Dose: 650 mg Amlodipine Besylate (Norvasc) 10 mg PO DAILY [facility] Last Admin: 07/21/17 08:59 Dose: 10 mg Atorvastatin Calcium (Lipitor) 40 mg PO DAILY [facility] Last Admin: 07/21/17 08:59 Dose: 40 mg Carvedilol (Coreg) 25 mg PO Q12 [facility] Last Admin: 07/21/17 08:58 Dose: 25 mg Celecoxib (Celebrex) 100 mg PO Q12 [facility] Last Admin: 07/21/17 08:58 Dose: 100 mg Enoxaparin Sodium (Lovenox) 40 mg SC DAILY [facility] PRN Reason: Protocol Last Admin: 07/21/17 08:59 Dose: 40 mg Famotidine (Pepcid) 20 mg PO BID [facility] Last Admin: 07/21/17 08:59 Dose: 20 mg Cefazolin Sodium/Dextrose (Ancef Iv 1 Gm Duplex) 1 gm in 50 mls @ 50 mls/hr IVPB Q12 [facility] PRN Reason: Protocol Last Admin: 07/21/17 08:54 Dose: 50 mls/hr Iron Sucrose 100 mg/ Sodium (Chloride) 105 mls @ 105 mls/hr IVPB DAILY [facility] Last Admin: 07/21/17 09:56 Dose: 105 mls/hr Ketorolac Tromethamine (Toradol) 15 mg IM Q8 [facility] Lisinopril (Zestril) 40 mg PO DAILY [facility] Multivitamins/Minerals (Therapeutic-M Tab) 1 tab PO DAILY [facility] Last Admin: 07/21/17 09:00 Dose: 1 tab Oxycodone HCl (Oxycontin Extended Release Tab) 20 mg PO Q12 [facility] Stop: 07/28/17 23:59 Last Admin: 07/14/17 20:56 Dose: 20 mg Tamsulosin HCl (Flomax) 0.4 mg PO DAILY [facility] - Labs Labs: 07/20/17 04:20 07/20/17 04:20
[2017-07-22 06:41] LABS: MEAN CELL VOLUME 88.8 fl (80.0-94.0); MEAN CORPUSCULAR HEMOGLOBIN 29.5 pg (27.0-31.0); MEAN CORPUSCULAR HGB CONC 33.3 g/dL (33.0-37.0); RED CELL DISTRIBUTION WIDTH 13.5 % (11.5-14.5); WHITE BLOOD COUNT 9.2 K/uL (4.8-10.8)
[2017-07-22 07:28] LABS: ALB/GLOB RATIO 1.2 (1.0-2.1); ALKALINE PHOSPHATASE 100 U/L (38-126); ALT/SGPT 71 U/L (21-72); AST/SGOT 80 U/L (17-59); BILIRUBIN,TOTAL 1.4 mg/dl (0.2-1.3); BLOOD UREA NITROGEN 15 mg/dl (9-20); CALCIUM 8.4 mg/dL (8.4-10.2); CARBON DIOXIDE 28 mmol/L (22-30); GFR AFRICAN-AMERICAN > 60; GLUCOSE,RANDOM 99 mg/dL (75-110); POTASSIUM 3.8 MMOL/L (3.6-5.0); SODIUM 141 mmol/l (132-148); TOTAL PROTEIN 5.9 G/DL (6.3-8.2)
[2017-07-22] MEDS: Multivitamin With Minerals Tab PO SCH (09:19)
[2017-07-22] MEDS: ceFAZolin IV 1 gm in Dextrose 1 GM/50 ML BAG IVPB SCH ×2 (09:19→21:34)
[2017-07-22] MEDS: Enoxaparin 40 mg Syringe SC SCH (09:22)
--- NOTE | 2017-07-22 10:22 | CP.PCM.PN ---
Subjective - Date & Time of Evaluation Date of Evaluation: 07/22/17 Time of Evaluation: 10:20 - Subjective Subjective: PRESENTLY AWAKE AND SEATED IN BEDSIDE CHAIR. VITALS HAVE BEEN STABLE. COOPERATES WITH THERAPY. SOMNOLENT DURING THE DAYTIME. PLAN FOR OVERNIGHT RECORDED PULSE OXIMETRY ON ROOM AIR. DAVON SUSPECT. Objective - Vital Signs/Intake and Output Vital Signs (last 24 hours): Temp Pulse Resp BP Pulse Ox 98.7 F 67 20 164/70 H 91 L 07/22/17 07:57 07/22/17 07:57 07/22/17 07:57 07/22/17 07:57 07/22/17 07:57 - Medications Medications: Current Medications Acetaminophen (Tylenol 325mg Tab) 325 mg PO Q4 PRN PRN Reason: pain1-3 Acetaminophen (Tylenol 650 Mg Supp) 650 mg [place] Q6 PRN PRN Reason: fever > 100.4 Last Admin: 07/15/17 21:25 Dose: 650 mg Amlodipine Besylate (Norvasc) 10 mg PO DAILY [facility] Last Admin: 07/22/17 09:22 Dose: 10 mg Atorvastatin Calcium (Lipitor) 40 mg PO DAILY [facility] Last Admin: 07/22/17 09:19 Dose: 40 mg Carvedilol (Coreg) 25 mg PO Q12 [facility] Last Admin: 07/22/17 09:21 Dose: 25 mg Celecoxib (Celebrex) 100 mg PO Q12 [facility] Last Admin: 07/22/17 09:19 Dose: 100 mg Enoxaparin Sodium (Lovenox) 40 mg SC DAILY [facility] PRN Reason: Protocol Last Admin: 07/22/17 09:22 Dose: 40 mg Famotidine (Pepcid) 20 mg PO BID [facility] Last Admin: 07/22/17 09:19 Dose: 20 mg Cefazolin Sodium/Dextrose (Ancef Iv 1 Gm Duplex) 1 gm in 50 mls @ 50 mls/hr IVPB Q12 [facility] PRN Reason: Protocol Last Admin: 07/22/17 09:19 Dose: 50 mls/hr Iron Sucrose 100 mg/ Sodium (Chloride) 105 mls @ 105 mls/hr IVPB DAILY [facility] Last Admin: 07/21/17 09:56 Dose: 105 mls/hr Ketorolac Tromethamine (Toradol) 15 mg IM Q8 [facility] Lisinopril (Zestril) 40 mg PO DAILY [facility] Multivitamins/Minerals (Therapeutic-M Tab) 1 tab PO DAILY [facility] Last Admin: 07/22/17 09:19 Dose: 1 tab Oxycodone HCl (Oxycontin Extended Release Tab) 20 mg PO Q12 [facility] Stop: 07/28/17 23:59 Last Admin: 07/14/17 20:56 Dose: 20 mg Tamsulosin HCl (Flomax) 0.4 mg PO DAILY [facility] - Labs Labs: 07/22/17 06:05 07/22/17 06:05
--- NOTE | 2017-07-22 10:23 | CP.PCM.PN ---
Addendum entered and electronically signed by Jack Norris MD 07/22/17 10:42: D/W Dr. Poonam Norris, PGY1 Original Note: <Jack Norris - Last Filed: 07/22/17 10:25> Subjective - Date & Time of Evaluation Date of Evaluation: 07/22/17 Time of Evaluation: 08:45 - Subjective Subjective: Patient seen and examined at bedside resting. Denies overnight events. Has been able to sit in his chair with assistance He remains afebrile. SpO2 measured at 91% on RA. Trachea midline. Non labored breathing. Breath sounds clear bilaterally. No wheezes appreciated on lung escobar. Possible DAVON: Requested for overnight recorded oximetry; confirmed with June and medicine team. Will be done tonight. Stable on Pulmonology standpoint Objective - Vital Signs/Intake and Output Vital Signs (last 24 hours): Temp Pulse Resp BP Pulse Ox 98.7 F 67 20 164/70 H 91 L 07/22/17 07:57 07/22/17 07:57 07/22/17 07:57 07/22/17 07:57 07/22/17 07:57 - Medications Medications: Current Medications Acetaminophen (Tylenol 325mg Tab) 325 mg PO Q4 PRN PRN Reason: pain1-3 Acetaminophen (Tylenol 650 Mg Supp) 650 mg [place] Q6 PRN PRN Reason: fever > 100.4 Last Admin: 07/15/17 21:25 Dose: 650 mg Amlodipine Besylate (Norvasc) 10 mg PO DAILY [facility] Last Admin: 07/22/17 09:22 Dose: 10 mg Atorvastatin Calcium (Lipitor) 40 mg PO DAILY [facility] Last Admin: 07/22/17 09:19 Dose: 40 mg Carvedilol (Coreg) 25 mg PO Q12 [facility] Last Admin: 07/22/17 09:21 Dose: 25 mg Celecoxib (Celebrex) 100 mg PO Q12 [facility] Last Admin: 07/22/17 09:19 Dose: 100 mg Enoxaparin Sodium (Lovenox) 40 mg SC DAILY [facility] PRN Reason: Protocol Last Admin: 07/22/17 09:22 Dose: 40 mg Famotidine (Pepcid) 20 mg PO BID [facility] Last Admin: 07/22/17 09:19 Dose: 20 mg Cefazolin Sodium/Dextrose (Ancef Iv 1 Gm Duplex) 1 gm in 50 mls @ 50 mls/hr IVPB Q12 [facility] PRN Reason: Protocol Last Admin: 07/22/17 09:19 Dose: 50 mls/hr Iron Sucrose 100 mg/ Sodium (Chloride) 105 mls @ 105 mls/hr IVPB DAILY [facility] Last Admin: 07/21/17 09:56 Dose: 105 mls/hr Ketorolac Tromethamine (Toradol) 15 mg IM Q8 [facility] Lisinopril (Zestril) 40 mg PO DAILY [facility] Multivitamins/Minerals (Therapeutic-M Tab) 1 tab PO DAILY [facility] Last Admin: 07/22/17 09:19 Dose: 1 tab Oxycodone HCl (Oxycontin Extended Release Tab) 20 mg PO Q12 [facility] Stop: 07/28/17 23:59 Last Admin: 07/14/17 20:56 Dose: 20 mg Tamsulosin HCl (Flomax) 0.4 mg PO DAILY [facility] - Labs Labs: 07/22/17 06:05 07/22/17 06:05 <Dontrell Levin - Last Filed: 07/22/17 11:06> Subjective - Subjective Subjective: Case discussed and findings reviewed. Agree with present assessment and plan. Objective - Vital Signs/Intake and Output Vital Signs (last 24 hours): Temp Pulse Resp BP Pulse Ox 98.7 F 67 20 164/70 H 91 L 07/22/17 07:57 07/22/17 07:57 07/22/17 07:57 07/22/17 07:57 07/22/17 07:57 - Medications Medications: Current Medications Acetaminophen (Tylenol 325mg Tab) 325 mg PO Q4 PRN PRN Reason: pain1-3 Acetaminophen (Tylenol 650 Mg Supp) 650 mg [place] Q6 PRN PRN Reason: fever > 100.4 Last Admin: 07/15/17 21:25 Dose: 650 mg Amlodipine Besylate (Norvasc) 10 mg PO DAILY [facility] Last Admin: 07/22/17 09:22 Dose: 10 mg Atorvastatin Calcium (Lipitor) 40 mg PO DAILY [facility] Last Admin: 07/22/17 09:19 Dose: 40 mg Carvedilol (Coreg) 25 mg PO Q12 [facility] Last Admin: 07/22/17 09:21 Dose: 25 mg Celecoxib (Celebrex) 100 mg PO Q12 [facility] Last Admin: 07/22/17 09:19 Dose: 100 mg Enoxaparin Sodium (Lovenox) 40 mg SC DAILY [facility] PRN Reason: Protocol Last Admin: 07/22/17 09:22 Dose: 40 mg Famotidine (Pepcid) 20 mg PO BID [facility] Last Admin: 07/22/17 09:19 Dose: 20 mg Cefazolin Sodium/Dextrose (Ancef Iv 1 Gm Duplex) 1 gm in 50 mls @ 50 mls/hr IVPB Q12 [facility] PRN Reason: Protocol Last Admin: 07/22/17 09:19 Dose: 50 mls/hr Iron Sucrose 100 mg/ Sodium (Chloride) 105 mls @ 105 mls/hr IVPB DAILY [facility] Last Admin: 07/21/17 09:56 Dose: 105 mls/hr Ketorolac Tromethamine (Toradol) 15 mg IM Q8 [facility] Lisinopril (Zestril) 40 mg PO DAILY [facility] Multivitamins/Minerals (Therapeutic-M Tab) 1 tab PO DAILY [facility] Last Admin: 07/22/17 09:19 Dose: 1 tab Oxycodone HCl (Oxycontin Extended Release Tab) 20 mg PO Q12 [facility] Stop: 07/28/17 23:59 Last Admin: 07/14/17 20:56 Dose: 20 mg Tamsulosin HCl (Flomax) 0.4 mg PO DAILY [facility] - Labs Labs: 07/22/17 06:05 07/22/17 06:05
--- NOTE | 2017-07-22 13:32 | CP.PCM.PN ---
Subjective - Date & Time of Evaluation Date of Evaluation: 07/22/17 Time of Evaluation: 08:45 - Subjective Subjective: S/P RTKR POD#8 Pt seen and examined at bedside, comfortable in bed Pt c/o mild right knee pain Pt denies SOB, chest pain, N/V/D, numbness/tingling RLE Objective - Vital Signs/Intake and Output Vital Signs (last 24 hours): Temp Pulse Resp BP Pulse Ox 98.7 F 67 20 164/70 H 91 L 07/22/17 07:57 07/22/17 07:57 07/22/17 07:57 07/22/17 07:57 07/22/17 07:57 - Medications Medications: Current Medications Acetaminophen (Tylenol 325mg Tab) 325 mg PO Q4 PRN PRN Reason: pain1-3 Acetaminophen (Tylenol 650 Mg Supp) 650 mg [place] Q6 PRN PRN Reason: fever > 100.4 Last Admin: 07/15/17 21:25 Dose: 650 mg Amlodipine Besylate (Norvasc) 10 mg PO DAILY [facility] Last Admin: 07/22/17 09:22 Dose: 10 mg Atorvastatin Calcium (Lipitor) 40 mg PO DAILY [facility] Last Admin: 07/22/17 09:19 Dose: 40 mg Carvedilol (Coreg) 25 mg PO Q12 [facility] Last Admin: 07/22/17 09:21 Dose: 25 mg Celecoxib (Celebrex) 100 mg PO Q12 [facility] Last Admin: 07/22/17 09:19 Dose: 100 mg Enoxaparin Sodium (Lovenox) 40 mg SC DAILY [facility] PRN Reason: Protocol Last Admin: 07/22/17 09:22 Dose: 40 mg Famotidine (Pepcid) 20 mg PO BID [facility] Last Admin: 07/22/17 09:19 Dose: 20 mg Cefazolin Sodium/Dextrose (Ancef Iv 1 Gm Duplex) 1 gm in 50 mls @ 50 mls/hr IVPB Q12 [facility] PRN Reason: Protocol Last Admin: 07/22/17 09:19 Dose: 50 mls/hr Iron Sucrose 100 mg/ Sodium (Chloride) 105 mls @ 105 mls/hr IVPB DAILY [facility] Last Admin: 07/22/17 12:57 Dose: 105 mls/hr Ketorolac Tromethamine (Toradol) 15 mg IM Q8 [facility] Lisinopril (Zestril) 40 mg PO DAILY [facility] Multivitamins/Minerals (Therapeutic-M Tab) 1 tab PO DAILY [facility] Last Admin: 07/22/17 09:19 Dose: 1 tab Oxycodone HCl (Oxycontin Extended Release Tab) 20 mg PO Q12 [facility] Stop: 07/28/17 23:59 Last Admin: 07/14/17 20:56 Dose: 20 mg Tamsulosin HCl (Flomax) 0.4 mg PO DAILY [facility] - Labs Labs: 07/22/17 06:05 07/22/17 06:05 - Constitutional Appears: Well, No Acute Distress - Respiratory Exam Respiratory Exam: Clear to Ausculation Bilateral, NORMAL BREATHING PATTERN - Cardiovascular Exam Cardiovascular Exam: REGULAR RHYTHM, RRR - Extremities Exam Additional comments: RLE: Knee wound C/D/I, julianne intact Calves soft and nontender b/l N/V intact distally Distal pulses wnl No foot drop Assessment and Plan - Assessment and Plan (Free Text) Assessment: 66 yo M s/p RTKR POD#8 Plan: Pain Control CT chest results reviewed- neg for PE Continue DVT ppx SCD b/l LE PT- WBAT RLE Continue current management
--- NOTE | 2017-07-22 15:01 | CP.PCM.PN ---
Subjective - Date & Time of Evaluation Date of Evaluation: 07/22/17 Time of Evaluation: 09:45 - Subjective Subjective: Patient seen and examined with Dr. Sanford. Sitting in chair, upright no apparent distress or discomfort. He appears well. His right knee incision is dry and intact, julianne remain in place. He has been participating in PT. He has been somnolent during the daytime during this admission, seen sleeping most of the day. No history of sleep apnea. Will do a continuous pulse ox tonight as per pulmonology. Respiratory therapist is aware. Patient encouraged to ambulate, with assistance if needed. Objective - Vital Signs/Intake and Output Vital Signs (last 24 hours): Temp Pulse Resp BP Pulse Ox 98.7 F 67 20 164/70 H 91 L 07/22/17 07:57 07/22/17 07:57 07/22/17 07:57 07/22/17 07:57 07/22/17 07:57 - Medications Medications: Current Medications Acetaminophen (Tylenol 325mg Tab) 325 mg PO Q4 PRN PRN Reason: pain1-3 Acetaminophen (Tylenol 650 Mg Supp) 650 mg [place] Q6 PRN PRN Reason: fever > 100.4 Last Admin: 07/15/17 21:25 Dose: 650 mg Amlodipine Besylate (Norvasc) 10 mg PO DAILY [facility] Last Admin: 07/22/17 09:22 Dose: 10 mg Atorvastatin Calcium (Lipitor) 40 mg PO DAILY [facility] Last Admin: 07/22/17 09:19 Dose: 40 mg Carvedilol (Coreg) 25 mg PO Q12 [facility] Last Admin: 07/22/17 09:21 Dose: 25 mg Celecoxib (Celebrex) 100 mg PO Q12 [facility] Last Admin: 07/22/17 09:19 Dose: 100 mg Enoxaparin Sodium (Lovenox) 40 mg SC DAILY [facility] PRN Reason: Protocol Last Admin: 07/22/17 09:22 Dose: 40 mg Famotidine (Pepcid) 20 mg PO BID [facility] Last Admin: 07/22/17 09:19 Dose: 20 mg Cefazolin Sodium/Dextrose (Ancef Iv 1 Gm Duplex) 1 gm in 50 mls @ 50 mls/hr IVPB Q12 [facility] PRN Reason: Protocol Last Admin: 07/22/17 09:19 Dose: 50 mls/hr Iron Sucrose 100 mg/ Sodium (Chloride) 105 mls @ 105 mls/hr IVPB DAILY [facility] Last Admin: 07/22/17 12:57 Dose: 105 mls/hr Ketorolac Tromethamine (Toradol) 15 mg IM Q8 [facility] Lisinopril (Zestril) 40 mg PO DAILY [facility] Multivitamins/Minerals (Therapeutic-M Tab) 1 tab PO DAILY [facility] Last Admin: 07/22/17 09:19 Dose: 1 tab Oxycodone HCl (Oxycontin Extended Release Tab) 20 mg PO Q12 [facility] Stop: 07/28/17 23:59 Last Admin: 07/14/17 20:56 Dose: 20 mg Tamsulosin HCl (Flomax) 0.4 mg PO DAILY [facility] - Labs Labs: 07/22/17 06:05 07/22/17 06:05 - Constitutional Appears: Well - Head Exam Head Exam: ATRAUMATIC, NORMAL INSPECTION, NORMOCEPHALIC - Eye Exam Eye Exam: EOMI, Normal appearance, PERRL - Respiratory Exam Respiratory Exam: Clear to Ausculation Bilateral, NORMAL BREATHING PATTERN - Cardiovascular Exam Cardiovascular Exam: REGULAR RHYTHM - GI/Abdominal Exam GI & Abdominal Exam: absent: Distended, Tenderness - Extremities Exam Additional comments: right anterior knee:julianne in place, no drainage, no malodor, small dressing on medial knee, clean and dry. - Neurological Exam Neurological Exam: Alert, Awake, CN II-XII Intact - Psychiatric Exam Psychiatric exam: Normal Affect, Normal Mood - Skin Skin Exam: Dry, Pallor Assessment and Plan - Assessment and Plan (Free Text) Assessment: 66 year old male s/p total right knee replacement. Patient is doing better, remains somewhat somnolent throughout the day. Continous pulse ox overnight to assess to DAVON. anemia 2' to acute blood loss, stable, on venofer HTN, uncontrolled pt on norvasc, resume lisinoprol and monitor. initially held due to hypotension #Status post total knee replacment #anemia #CHF #HTN #DVT prophylaxis -continue with PT, will need subacute rehabilitation upon discharge -no longer hypoxemic during the day, will have continuous pulse ox overnight -pain control as ordered -lovenox for dvt ppx -pt on venofer for anemia
[2017-07-22 16:08] LABS: CHLORIDE 107 mmol/L (98-107)
[2017-07-23] MEDS: Multivitamin With Minerals Tab PO SCH (08:52)
[2017-07-23] MEDS: Enoxaparin 40 mg Syringe SC SCH (08:52)
[2017-07-23] MEDS: ceFAZolin IV 1 gm in Dextrose 1 GM/50 ML BAG IVPB SCH (11:15)
--- NOTE | 2017-07-23 11:52 | CP.PCM.DIS ---
<UbaldoTyresetylervincent - Last Filed: 07/23/17 15:09> Provider - Provider Date of Admission: 07/14/17 13:22 Attending physician: Nathaniel Sanford MD Primary care physician: Dao Phoenix MD Consults: Pulmonology: Dr. Levin Neurology: Dr. Farrell Cardiology: Dr. Gaston Orthopedic: Dr. Phoenix Time Spent in preparation of Discharge (in minutes): 35 Diagnosis - Discharge Diagnosis (1) Anemia Status: Acute (2) CHF (congestive heart failure) Status: Acute (3) Hypertension Status: Acute (4) Hypoxemia Status: Acute Hospital Course - Lab Results Lab Results: Micro Results 07/20/17 09:55 Naris MRSA Culture (Admit) - Final MRSA NOT DETECTED 07/15/17 12:50 Blood-Venous Blood Culture - Final NO GROWTH AFTER 5 DAYS 07/15/17 12:50 Blood-Venous Gram Stain - Final TEST NOT PERFORMED 07/15/17 12:40 Blood-Venous Blood Culture - Final NO GROWTH AFTER 5 DAYS 07/15/17 12:40 Blood-Venous Gram Stain - Final TEST NOT PERFORMED 07/14/17 10:21 Synovial Fluid Gram Stain - Final 07/14/17 10:21 Synovial Fluid Body Fluid Culture - Final No growth. 07/14/17 12:32 Knee - Right Gram Stain - Final 07/14/17 12:32 Knee - Right Wound Culture - Final Escherichia Coli Coagulase Neg Staphylococcus 07/15/17 13:17 Naris MRSA Culture (Admit) - Final MRSA NOT DETECTED 07/15/17 16:00 Urine,Catheterized Urine Culture - Final No Growth (<1,000 CFU/ML) Most Recent Lab Values WBC 9.2 K/uL (4.8-10.8) 07/22/17 06:05 RBC 2.92 Mil/uL (4.40-5.90) L 07/22/17 06:05 Hgb 8.6 g/dL (12.0-18.0) L 07/22/17 06:05 Hct 26.0 % (35.0-51.0) L 07/22/17 06:05 MCV 88.8 fl (80.0-94.0) 07/22/17 06:05 MCH 29.5 pg (27.0-31.0) 07/22/17 06:05 MCHC 33.3 g/dL (33.0-37.0) 07/22/17 06:05 RDW 13.5 % (11.5-14.5) 07/22/17 06:05 Plt Count 248 K/uL (130-400) 07/22/17 06:05 MPV 8.8 fl (7.2-11.7) 07/20/17 04:20 Neut % (Auto) 68.3 % (50.0-75.0) 07/20/17 04:20 Lymph % (Auto) 14.3 % (20.0-40.0) L 07/20/17 04:20 Dodge % (Auto) 10.6 % (0.0-10.0) H 07/20/17 04:20 Eos % (Auto) 6.2 % (0.0-4.0) H 07/20/17 04:20 Baso % (Auto) 0.6 % (0.0-2.0) 07/20/17 04:20 Neut # 5.9 K/uL (1.8-7.0) 07/20/17 04:20 Lymph # 1.2 K/uL (1.0-4.3) 07/20/17 04:20 Dodge # 0.9 K/uL (0.0-0.8) H 07/20/17 04:20 Eos # 0.5 K/uL (0.0-0.7) 07/20/17 04:20 Baso # 0.1 K/uL (0.0-0.2) 07/20/17 04:20 Neutrophils % (Manual) 76 % (42-75) H 07/16/17 05:15 Band Neutrophils % 2 % (0-2) 07/16/17 05:15 Lymphocytes % (Manual) 12 % (20-50) L 07/16/17 05:15 Monocytes % (Manual) 7 % (0-10) 07/16/17 05:15 Eosinophils % (Manual) 2 % (0-7) 07/16/17 05:15 Basophils % (Manual) 1 % (0-2) 07/16/17 05:15 Smudge Cells Present 07/16/17 05:15 Platelet Estimate Slightly decreased (NORMAL) L 07/16/17 05:15 D-Dimer, Quantitative 83391 ng/mlDDU (0-230) H 07/15/17 11:25 pCO2 37 mm/Hg (35-45) 07/16/17 11:08 pO2 52 mm/Hg (80-100) L 07/16/17 11:08 HCO3 24.6 mmol/L (21-28) 07/16/17 11:08 ABG pH 7.42 (7.35-7.45) 07/16/17 11:08 ABG Total CO2 25.1 mmol/L (22-28) 07/16/17 11:08 ABG O2 Saturation 93.0 % (95-98) L 07/16/17 11:08 ABG O2 Content 12.2 ML/dL (15-23) L 07/16/17 11:08 ABG Base Excess -0.3 mmol/L (-2.0-3.0) 07/16/17 11:08 ABG Hemoglobin 9.7 g/dL (11.7-17.4) L 07/16/17 11:08 ABG Carboxyhemoglobin 2.1 % (0.5-1.5) H 07/16/17 11:08 POC ABG HHb (Measured) 6.7 % (0.0-5.0) H 07/16/17 11:08 ABG Methemoglobin 1.8 % (0.0-3.0) 07/16/17 11:08 ABG O2 Capacity 13.1 mL/dL (16-24) L 07/16/17 11:08 Hola Test Yes 07/16/17 11:08 A-a O2 Difference 116.0 mm/Hg 07/16/17 11:08 Hgb O2 Saturation 89.4 % (95.0-98.0) L 07/16/17 11:08 FiO2 30.0 % 07/16/17 11:08 Blood Gas Comments 3l/m nc 07/16/17 11:08 Crit Value Read Back N 07/16/17 11:08 Sodium 141 mmol/l (132-148) 07/22/17 06:05 Potassium 3.8 MMOL/L (3.6-5.0) 07/22/17 06:05 Chloride 107 mmol/L (98-107) 07/22/17 06:05 Carbon Dioxide 28 mmol/L (22-30) 07/22/17 06:05 Anion Gap 10 (10-20) 07/22/17 06:05 BUN 15 mg/dl (9-20) 07/22/17 06:05 Creatinine 0.8 mg/dl (0.8-1.5) 07/22/17 06:05 Est GFR ( Amer) > 60 07/22/17 06:05 Est GFR (Non-Af Amer) > 60 07/22/17 06:05 POC Glucose (mg/dL) 144 mg/dL (65-110) H 07/15/17 08:57 Random Glucose 99 mg/dL (75-110) 07/22/17 06:05 Calcium 8.4 mg/dL (8.4-10.2) 07/22/17 06:05 Total Bilirubin 1.4 mg/dl (0.2-1.3) H 07/22/17 06:05 AST 80 U/L (17-59) H D 07/22/17 06:05 ALT 71 U/L (21-72) 07/22/17 06:05 Alkaline Phosphatase 100 U/L (38-126) 07/22/17 06:05 Troponin I 0.1140 ng/mL (0.00-0.120) 07/16/17 05:15 NT-Pro-B Natriuret Pep 5590 pg/ml (0-900) H 07/15/17 10:25 Total Protein 5.9 G/DL (6.3-8.2) L 07/22/17 06:05 Albumin 3.2 g/dL (3.5-5.0) L 07/22/17 06:05 Globulin 2.7 gm/dL (2.2-3.9) 07/22/17 06:05 Albumin/Globulin Ratio 1.2 (1.0-2.1) 07/22/17 06:05 Urine Color Ladi (YELLOW) 07/15/17 16:06 Urine Clarity Cloudy (Clear) 07/15/17 16:06 Urine pH 5.0 (5.0-8.0) 07/15/17 16:06 Ur Specific [place] 1.026 (1.003-1.030) 07/15/17 16:06 Urine Protein 30 mg/dL (NEGATIVE) 07/15/17 16:06 Urine Glucose (UA) Neg mg/dL (Normal) 07/15/17 16:06 Urine Ketones 20 mg/dL (NEGATIVE) 07/15/17 16:06 Urine Blood Negative (NEGATIVE) 07/15/17 16:06 Urine Nitrate Negative (NEGATIVE) 07/15/17 16:06 Urine Bilirubin Negative (NEGATIVE) 07/15/17 16:06 Urine Urobilinogen 0.2-1.0 mg/dL (0.2-1.0) 07/15/17 16:06 Ur Leukocyte Esterase Neg Michael/uL (Negative) 07/15/17 16:06 Urine RBC (Auto) 3 /hpf (0-3) 07/15/17 16:06 Urine Microscopic WBC 2 /hpf (0-5) 07/15/17 16:06 Ur Squamous Epith Cells < 1 /hpf (0-5) 07/15/17 16:06 Amorphous Sediment Few /ul (<OCC) H 07/15/17 16:06 Urine Bacteria Rare (<OCC) 07/15/17 16:06 Granular Casts (Auto) 1 /lpf (0-1) 07/15/17 16:06 Fluid Type Synovial fluid 07/14/17 10:21 Synovial WBC 15.0 /mm3 (0.0-150.0) 07/14/17 10:21 Synovial RBC 5544.0 /mm3 (0.0-0.0) H 07/14/17 10:21 Synovial Neutrophils 5.0 % (0-0) H 07/14/17 10:21 Synovial Lymphocytes 18.0 % (0-0) H 07/14/17 10:21 Synov Monos/Macrophage 7 % (0-0) H 07/14/17 10:21 Synovial Fluid Comment Light red, bloody 07/14/17 10:21 Heparin-induced Plt Ab Negative (Negative) 07/16/17 14:26 Blood Type O POSITIVE 07/14/17 06:25 Blood Type Confirm O POSITIVE 07/14/17 08:00 Antibody Screen Negative 07/14/17 06:25 BBK History Checked No verified bt 07/14/17 06:25 - Hospital Course Hospital Course: Patient seen and examined with Dr. Sanford. Case d/w Dr. Levin. 66 year old male admitted s/p total right knee replacement with post operative decompensation with hypoxemia, anemia. Patient required high flow oxygen and has been weaned off. He has pulse ox monitoring overnight, with drop in his oxygen saturation to 69%. Patient was evaluated by pulmonology. The patient likely has sleep apnea given his daytime somnolence and desaturation over night , but will require polyomnography as outpatient for diagnosis. In the interim, BIPAP mask ventilation overnight set at I-10cm and E-5cm with 30% oxygen and a set rate of 16BPM. Patient is to be discharged to subacute rehabilitation facility. This morning the patient is somnolent but arousable. No complaints of pain while lying in bed. Encouraged pt to be sitting upright in chair. - Date & Time of H&P Date of H&P: 07/14/17 Time of H&P: 13:50 Discharge Exam - Head Exam Head Exam: ATRAUMATIC, NORMAL INSPECTION, NORMOCEPHALIC - Eye Exam Eye Exam: EOMI, Normal appearance, PERRL - Respiratory Exam Respiratory Exam: Clear to PA & Lateral, UNREMARKABLE. absent: Rhonchi, Wheezes , Respiratory Distress - Cardiovascular Exam Cardiovascular Exam: REGULAR RHYTHM, +S1, +S2 - GI/Abdominal Exam GI & Abdominal Exam: Unremarkable - Neurological Exam Neurological exam: Alert, CN II-XII Intact, Oriented x3 Additional comments: somnolent, arousable - Psychiatric Exam Psychiatric exam: Normal Affect, Normal Mood - Skin Skin Exam: Dry, Intact, Normal Color, Warm Discharge Plan - Follow Up Plan Condition: GOOD Disposition: TRANSF TO SNF Instructions: Knee Replacement (DC) Referrals: Dao Phoenix MD [Primary Care Provider] - <Nathaniel Sanford - Last Filed: 07/24/17 16:37> Provider - Provider Date of Admission: 07/14/17 13:22 Attending physician: Nathaniel Sanford MD Primary care physician: Dao Phoenix MD Diagnosis - Discharge Diagnosis (1) Hypoxemia Status: Acute (2) Hypertension Status: Acute (3) CHF (congestive heart failure) Status: Acute (4) Anemia Status: Acute (5) Altered mental status Status: Acute (6) Sleep apnea Status: Acute Hospital Course - Lab Results Lab Results: Micro Results 07/20/17 09:55 Naris MRSA Culture (Admit) - Final MRSA NOT DETECTED 07/15/17 12:50 Blood-Venous Blood Culture - Final NO GROWTH AFTER 5 DAYS 07/15/17 12:50 Blood-Venous Gram Stain - Final TEST NOT PERFORMED 07/15/17 12:40 Blood-Venous Blood Culture - Final NO GROWTH AFTER 5 DAYS 07/15/17 12:40 Blood-Venous Gram Stain - Final TEST NOT PERFORMED 07/14/17 10:21 Synovial Fluid Gram Stain - Final 07/14/17 10:21 Synovial Fluid Body Fluid Culture - Final No growth. 07/14/17 12:32 Knee - Right Gram Stain - Final 07/14/17 12:32 Knee - Right Wound Culture - Final Escherichia Coli Coagulase Neg Staphylococcus 07/15/17 13:17 Naris MRSA Culture (Admit) - Final MRSA NOT DETECTED 07/15/17 16:00 Urine,Catheterized Urine Culture - Final No Growth (<1,000 CFU/ML) Most Recent Lab Values WBC 9.2 K/uL (4.8-10.8) 07/22/17 06:05 RBC 2.92 Mil/uL (4.40-5.90) L 07/22/17 06:05 Hgb 8.6 g/dL (12.0-18.0) L 07/22/17 06:05 Hct 26.0 % (35.0-51.0) L 07/22/17 06:05 MCV 88.8 fl (80.0-94.0) 07/22/17 06:05 MCH 29.5 pg (27.0-31.0) 07/22/17 06:05 MCHC 33.3 g/dL (33.0-37.0) 07/22/17 06:05 RDW 13.5 % (11.5-14.5) 07/22/17 06:05 Plt Count 248 K/uL (130-400) 07/22/17 06:05 MPV 8.8 fl (7.2-11.7) 07/20/17 04:20 Neut % (Auto) 68.3 % (50.0-75.0) 07/20/17 04:20 Lymph % (Auto) 14.3 % (20.0-40.0) L 07/20/17 04:20 Dodge % (Auto) 10.6 % (0.0-10.0) H 07/20/17 04:20 Eos % (Auto) 6.2 % (0.0-4.0) H 07/20/17 04:20 Baso % (Auto) 0.6 % (0.0-2.0) 07/20/17 04:20 Neut # 5.9 K/uL (1.8-7.0) 07/20/17 04:20 Lymph # 1.2 K/uL (1.0-4.3) 07/20/17 04:20 Dodge # 0.9 K/uL (0.0-0.8) H 07/20/17 04:20 Eos # 0.5 K/uL (0.0-0.7) 07/20/17 04:20 Baso # 0.1 K/uL (0.0-0.2) 07/20/17 04:20 Neutrophils % (Manual) 76 % (42-75) H 07/16/17 05:15 Band Neutrophils % 2 % (0-2) 07/16/17 05:15 Lymphocytes % (Manual) 12 % (20-50) L 07/16/17 05:15 Monocytes % (Manual) 7 % (0-10) 07/16/17 05:15 Eosinophils % (Manual) 2 % (0-7) 07/16/17 05:15 Basophils % (Manual) 1 % (0-2) 07/16/17 05:15 Smudge Cells Present 07/16/17 05:15 Platelet Estimate Slightly decreased (NORMAL) L 07/16/17 05:15 D-Dimer, Quantitative 23185 ng/mlDDU (0-230) H 07/15/17 11:25 pCO2 37 mm/Hg (35-45) 07/16/17 11:08 pO2 52 mm/Hg (80-100) L 07/16/17 11:08 HCO3 24.6 mmol/L (21-28) 07/16/17 11:08 ABG pH 7.42 (7.35-7.45) 07/16/17 11:08 ABG Total CO2 25.1 mmol/L (22-28) 07/16/17 11:08 ABG O2 Saturation 93.0 % (95-98) L 07/16/17 11:08 ABG O2 Content 12.2 ML/dL (15-23) L 07/16/17 11:08 ABG Base Excess -0.3 mmol/L (-2.0-3.0) 07/16/17 11:08 ABG Hemoglobin 9.7 g/dL (11.7-17.4) L 07/16/17 11:08 ABG Carboxyhemoglobin 2.1 % (0.5-1.5) H 07/16/17 11:08 POC ABG HHb (Measured) 6.7 % (0.0-5.0) H 07/16/17 11:08 ABG Methemoglobin 1.8 % (0.0-3.0) 07/16/17 11:08 ABG O2 Capacity 13.1 mL/dL (16-24) L 07/16/17 11:08 Hola Test Yes 07/16/17 11:08 A-a O2 Difference 116.0 mm/Hg 07/16/17 11:08 Hgb O2 Saturation 89.4 % (95.0-98.0) L 07/16/17 11:08 FiO2 30.0 % 07/16/17 11:08 Blood Gas Comments 3l/m nc 07/16/17 11:08 Crit Value Read Back N 07/16/17 11:08 Sodium 141 mmol/l (132-148) 07/22/17 06:05 Potassium 3.8 MMOL/L (3.6-5.0) 07/22/17 06:05 Chloride 107 mmol/L (98-107) 07/22/17 06:05 Carbon Dioxide 28 mmol/L (22-30) 07/22/17 06:05 Anion Gap 10 (10-20) 07/22/17 06:05 BUN 15 mg/dl (9-20) 07/22/17 06:05 Creatinine 0.8 mg/dl (0.8-1.5) 07/22/17 06:05 Est GFR ( Amer) > 60 07/22/17 06:05 Est GFR (Non-Af Amer) > 60 07/22/17 06:05 POC Glucose (mg/dL) 144 mg/dL (65-110) H 07/15/17 08:57 Random Glucose 99 mg/dL (75-110) 07/22/17 06:05 Calcium 8.4 mg/dL (8.4-10.2) 07/22/17 06:05 Total Bilirubin 1.4 mg/dl (0.2-1.3) H 07/22/17 06:05 AST 80 U/L (17-59) H D 07/22/17 06:05 ALT 71 U/L (21-72) 07/22/17 06:05 Alkaline Phosphatase 100 U/L (38-126) 07/22/17 06:05 Troponin I 0.1140 ng/mL (0.00-0.120) 07/16/17 05:15 NT-Pro-B Natriuret Pep 5590 pg/ml (0-900) H 07/15/17 10:25 Total Protein 5.9 G/DL (6.3-8.2) L 07/22/17 06:05 Albumin 3.2 g/dL (3.5-5.0) L 07/22/17 06:05 Globulin 2.7 gm/dL (2.2-3.9) 07/22/17 06:05 Albumin/Globulin Ratio 1.2 (1.0-2.1) 07/22/17 06:05 Urine Color Ladi (YELLOW) 07/15/17 16:06 Urine Clarity Cloudy (Clear) 07/15/17 16:06 Urine pH 5.0 (5.0-8.0) 07/15/17 16:06 Ur Specific [place] 1.026 (1.003-1.030) 07/15/17 16:06 Urine Protein 30 mg/dL (NEGATIVE) 07/15/17 16:06 Urine Glucose (UA) Neg mg/dL (Normal) 07/15/17 16:06 Urine Ketones 20 mg/dL (NEGATIVE) 07/15/17 16:06 Urine Blood Negative (NEGATIVE) 07/15/17 16:06 Urine Nitrate Negative (NEGATIVE) 07/15/17 16:06 Urine Bilirubin Negative (NEGATIVE) 07/15/17 16:06 Urine Urobilinogen 0.2-1.0 mg/dL (0.2-1.0) 07/15/17 16:06 Ur Leukocyte Esterase Neg Michael/uL (Negative) 07/15/17 16:06 Urine RBC (Auto) 3 /hpf (0-3) 07/15/17 16:06 Urine Microscopic WBC 2 /hpf (0-5) 07/15/17 16:06 Ur Squamous Epith Cells < 1 /hpf (0-5) 07/15/17 16:06 Amorphous Sediment Few /ul (<OCC) H 07/15/17 16:06 Urine Bacteria Rare (<OCC) 07/15/17 16:06 Granular Casts (Auto) 1 /lpf (0-1) 07/15/17 16:06 Fluid Type Synovial fluid 07/14/17 10:21 Synovial WBC 15.0 /mm3 (0.0-150.0) 07/14/17 10:21 Synovial RBC 5544.0 /mm3 (0.0-0.0) H 07/14/17 10:21 Synovial Neutrophils 5.0 % (0-0) H 07/14/17 10:21 Synovial Lymphocytes 18.0 % (0-0) H 07/14/17 10:21 Synov Monos/Macrophage 7 % (0-0) H 07/14/17 10:21 Synovial Fluid Comment Light red, bloody 07/14/17 10:21 Heparin-induced Plt Ab Negative (Negative) 07/16/17 14:26 Blood Type O POSITIVE 07/14/17 06:25 Blood Type Confirm O POSITIVE 07/14/17 08:00 Antibody Screen Negative 07/14/17 06:25 BBK History Checked No verified bt 07/14/17 06:25
--- NOTE | 2017-07-23 13:18 | CP.PCM.PN ---
Subjective - Date & Time of Evaluation Date of Evaluation: 07/23/17 Time of Evaluation: 13:11 - Subjective Subjective: Overnight recorded pulse oximetry shows multiple episodes of oxygen desaturation. These desats go as low as 69%, and remain at these low levels for periods of time. This is strong evidence of underlying sleep apnea and he will need a formal sleep study at some time in the future. He is presently being discharged from the hospital to [facility] and will need to use NIPPV during the interim until he can qualify for a nasal CPAP device. My advice would be to use BIPAP mask ventilation overnight set at I-10cm and E-5cm with 30% oxygen and a set rate of 16BPM. Objective - Vital Signs/Intake and Output Vital Signs (last 24 hours): Temp Pulse Resp BP Pulse Ox 98.3 F 63 20 130/71 95 07/23/17 07:28 07/23/17 08:55 07/23/17 07:28 07/23/17 08:55 07/23/17 07:28 - Medications Medications: Current Medications Acetaminophen (Tylenol 325mg Tab) 325 mg PO Q4 PRN PRN Reason: pain1-3 Acetaminophen (Tylenol 650 Mg Supp) 650 mg VA Q6 PRN PRN Reason: fever > 100.4 Last Admin: 07/15/17 21:25 Dose: 650 mg Amlodipine Besylate (Norvasc) 10 mg PO DAILY [facility] Last Admin: 07/23/17 08:52 Dose: 10 mg Atorvastatin Calcium (Lipitor) 40 mg PO DAILY [facility] Last Admin: 07/23/17 08:55 Dose: 40 mg Carvedilol (Coreg) 25 mg PO Q12 [facility] Last Admin: 07/23/17 08:55 Dose: 25 mg Celecoxib (Celebrex) 100 mg PO Q12 [facility] Last Admin: 07/23/17 08:55 Dose: 100 mg Enoxaparin Sodium (Lovenox) 40 mg SC DAILY [place] PRN Reason: Protocol Last Admin: 07/23/17 08:52 Dose: 40 mg Famotidine (Pepcid) 20 mg PO BID [facility] Last Admin: 07/23/17 08:53 Dose: 20 mg Cefazolin Sodium/Dextrose (Ancef Iv 1 Gm Duplex) 1 gm in 50 mls @ 50 mls/hr IVPB Q12 [place] PRN Reason: Protocol Last Admin: 07/23/17 11:15 Dose: 50 mls/hr Iron Sucrose 100 mg/ Sodium (Chloride) 105 mls @ 105 mls/hr IVPB DAILY [facility] Last Admin: 07/23/17 12:26 Dose: 105 mls/hr Lisinopril (Zestril) 40 mg PO DAILY [facility] Last Admin: 07/23/17 08:54 Dose: 40 mg Multivitamins/Minerals (Therapeutic-M Tab) 1 tab PO DAILY [facility] Last Admin: 07/23/17 08:52 Dose: 1 tab Oxycodone HCl (Oxycontin Extended Release Tab) 20 mg PO Q12 [facility] Stop: 07/28/17 23:59 Last Admin: 07/14/17 20:56 Dose: 20 mg - Labs Labs: 07/22/17 06:05 07/22/17 06:05
[2017-07-23 16:42] VITALS: BP 102/58; PULSE 61; RESP 18; TEMP 97.4; O2SAT 94
== END 2017-07-23 15:55 | DRG 469 ==
LOC: H.OPSURG 06:10 → H.MEDSURG1 13:22 → H.ICU/CCU 07-15 09:31 → H.MEDSURG1 07-20 17:28
PROVIDERS: ADMIT Family Medicine; ATTEND Family Medicine
PROC: 0SRC0J9 Replacement of Right Knee Joint with Synthetic Substitute, Cemented, Open Approach (ICD-10-PCS; principal; 2017-07-14 07:45)
DX: M17.11 Unilateral primary osteoarthritis, right knee (principal); I50.33 Acute on chronic diastolic (congestive) heart failure; G93.1 Anoxic brain damage, not elsewhere classified; N17.9 Acute kidney failure, unspecified; K56.7 Ileus, unspecified; D62 Acute posthemorrhagic anemia; D69.6 Thrombocytopenia, unspecified; I11.0 Hypertensive heart disease with heart failure; E78.5 Hyperlipidemia, unspecified; E78.00 Pure hypercholesterolemia, unspecified; I25.10 Atherosclerotic heart disease of native coronary artery without angina pectoris; Z98.61 Coronary angioplasty status; R33.8 Other retention of urine; N99.89 Other postprocedural complications and disorders of genitourinary system; Y83.8 Other surgical procedures as the cause of abnormal reaction of the patient, or of later complication, without mention of misadventure at the time of the procedure; I95.81 Postprocedural hypotension; E86.1 Hypovolemia; N40.1 Benign prostatic hyperplasia with lower urinary tract symptoms